=== PATIENT | female | born 1950 | race Caucasian/White ===

== ENCOUNTER 2019-06-13 08:49 | Outpatient (CLI) | payer MEDICARE, OTHER | END 2019-06-13 08:50 | disposition home or self-care (01) | LOC: DI 08:49 | PROVIDERS: ATTEND Internal Medicine | DX: Z12.31 Encounter for screening mammogram for malignant neoplasm of breast (principal) | CPT/HCPCS: 77063; 77067 ==

== ENCOUNTER 2019-06-13 08:56 | Outpatient (CLI) | payer MEDICARE ==
--- NOTE | 2019-06-14 00:41 | XRAY Report ---
Reason: ATRIAL SEPTAL DEFECT, HYPOTHYROIDISM Procedure Date: 06/13/2019 Accession Number: [id number] / [id number] Procedure: XR - Chest 2 View X-Ray CPT Code: 37853 Final Report FULL RESULT: EXAM: CHEST RADIOGRAPHY EXAM DATE: 06/13/2019 10:42 AM. CLINICAL HISTORY: ATRIAL SEPTAL DEFECT, HYPOTHYROIDISM. COMPARISON: None. TECHNIQUE: 2 views. FINDINGS: Lungs/Pleura: No focal opacities evident. No pleural effusion. No pneumothorax. Normal volumes. Mediastinum: Heart and mediastinal contours are unremarkable. Other: None. IMPRESSION: Normal 2-view chest radiography. RADIA
--- NOTE | 2019-06-14 11:20 | Ultrasound Report ---
Reason: ATRIAL SEPTAL DEFECT, HYPOTHYROIDISM Procedure Date: 06/13/2019 Accession Number: [id number] / [id number] Procedure: US - Head or Neck Soft Tissue CPT Code: Final Report FULL RESULT: EXAM: THYROID ULTRASOUND EXAM DATE: 06/13/2019 09:46 AM. CLINICAL HISTORY: Atrial septal defect, hypothyroidism. COMPARISON: None. TECHNIQUE: Real time sonographic imaging of the thyroid was performed by the pig farm manager. Multiple territory account representative static images were saved for review. FINDINGS: THYROID GLAND: Right Lobe: 2.5 x 1.2 x 0.8 cm, volume 1.1 cc. Markedly heterogeneous and lobular. Right Lobe Nodules: None. Left Lobe: 2.2 x 0.6 x 0.8 cm, volume 0.5 cc. Markedly heterogeneous and lobular. Left Lobe Nodules: None. Isthmus: 0.3 cm AP. Isthmic Nodules: 1. Echogenic with peripheral hypoechoic rim, 0.9 x 0.9 x 0.5 cm. LYMPH NODES: No adenopathy demonstrated in the central or lateral compartment. OTHER: None. IMPRESSION: 1. Small heterogeneous and lobular thyroid gland mostly likely the result of thyroid disease and consistent with clinical history of hypothyroidism. 0.9 cm isthmic nodule which does not meet criteria for fine-needle aspiration biopsy. Therefore, continued surveillance is recommended with follow-up in 12-24 months. Management recommendations are based on 2015 [place] [employer] Management Guidelines for Adult Patients with Thyroid Nodules and Differentiated Thyroid Cancer. RADIA
--- NOTE | 2019-06-17 08:55 | DEXA Report ---
Reason: POSTMENOPAUSAL Procedure Date: 06/13/2019 Accession Number: [id number] / [id number] Procedure: DEX - Dexa Spine and/or Hip CPT Code: Final Report FULL RESULT: EXAM: Dexa Spine and/or Hip DATE: 06/13/2019 11:07 AM CLINICAL HISTORY: POSTMENOPAUSAL TECHNIQUE: Dual energy x-ray absorptiometry (DXA) was performed on a [employer] System. Regions measured are the AP Spine, femoral neck, and if needed forearm. COMPARISON: None. In accordance with the International Society for Clinical Densitometry (ISCD) guidelines, data from previous exams may be reanalyzed using current recommendations and techniques. This is done to allow a more accurate basis for comparison with the current study. FINDINGS: The data for the lumbar spine is as follows: BMD (g/cm/cm) T-SCORE Z-SCORE REGION L1 0.899 -1.9 -1.5 L2 0.965 -2.0 -1.5 L3 1.025 -1.5 -1.0 L4 1.106 -0.8 -0.3 TOTAL 1.010 -1.4 -1.0 NOTE: All evaluable vertebrae are used for classification The data for the hip is as follows: BMD (g/cm/cm) T-SCORE Z-SCORE REGION Neck 0.704 -2.4 -1.6 TOTAL 0.761 -2.0 -1.5 NOTE: The femoral neck or total proximal femur, whichever is lowest, is used for classification. IMPRESSION: THE WHO CLASSIFICATION BASED ON THE INTERNATIONAL REFERENCE STANDARD IS OSTEOPENIA. THE FRACTURE RISK IS INCREASED. RECOMMENDATION: Patients with diagnosis of osteoporosis or osteopenia should have regular bone mineral density assessment. For those eligible for Medicare, routine testing is allowed once every 2 years. Testing frequency can be increased for patients who have rapidly progressing disease or for those who are receiving medical therapy to restore bone mass. COMMENT: World Health Organization (WHO) definitions for osteoporosis and osteopenia: NORMAL BMD: T-score at -1.0 or higher, fracture risk is low OSTEOPENIA BMD: T-score between -1.0 and -2.5, fracture risk is increased. OSTEOPOROSIS BMD: T-score at -2.5 or lower, fracture risk is high. National Osteoporosis Foundation recommends: 1. Obtain adequate dietary calcium (at least 1200 mg per day) and vitamin D (400-800 international units per day). 2. Participate, as appropriate, in regular weightbearing and muscle-strengthening exercise. 3. Avoid tobacco use and reduce alcohol and caffeine intake. 4. For more detailed information see the website at www.NOF.org.
== END 2019-06-13 08:57 | disposition home or self-care (01) ==
LOC: DI 08:56
PROVIDERS: ATTEND Internal Medicine
DX: Q21.1 Atrial septal defect (principal); E03.9 Hypothyroidism, unspecified; N95.8 Other specified menopausal and perimenopausal disorders; M85.89 Other specified disorders of bone density and structure, multiple sites; J44.9 Chronic obstructive pulmonary disease, unspecified; G47.31 Primary central sleep apnea; Z87.891 Personal history of nicotine dependence
CPT/HCPCS: 71046; 76536; 77080; 94010; 94729

== ENCOUNTER 2020-06-01 11:37 | Outpatient (CLI) | payer MEDICARE ==
--- NOTE | 2020-06-01 18:19 | Ultrasound Report ---
PROCEDURE: Head or Neck Soft Tissue INDICATIONS: THYROID NODULE TECHNIQUE: Real-time scanning was performed of the thyroid gland, with image documentation. COMPARISON: Thyroid ultrasound 06/13/2019 FINDINGS: Right: Thyroid lobe measures 2.1 x 0.8 x 0.9 cm, and is homogeneous in echotexture. Left: Thyroid lobe measures 2.0 x 0.5 x 0.6 cm, and is homogenous in echotexture. Isthmus: 3 mm thick. Nodule number: One Location: Isthmus Size: 1.0 x 0.8 x 0.5 cm compared to 0.9 x 0.9 x 0.5 cm. Composition: Follow-up Echogenicity: Hyperechoic Shape: wider than tall. Margins: Smooth Echogenic foci: None Total points: 1 ACR TI-RADS category: 1 IMPRESSION: 1. Stable appearance of the isthmus lesion since 06/13/2019. Based on recommendations below given bd gory 1 classification, no additional follow-up is recommended. ACR TI-RADS definitions and recommendations: TI-RADS 1 (benign): 0 points. FNA not needed. TI-RADS 2 (not suspicious): 2 points. FNA not needed. TI-RADS 3 (mildly suspicious): 3 points. ? FNA if 2.5 cm or larger, follow up if 1.5 cm or larger (at 1, 3, and 5 years). TI-RADS 4 (moderately suspicious): 4-6 points. ? FNA if 1.5 cm or larger, follow up if 1 cm or larger (at 1, 2, 3, and 5 years). TI-RADS 5 (highly suspicious): 7 points or more. ? FNA if 1 cm or larger, follow up if 0.5 cm or larger (every year for 5 years). Reviewed by: Dacia Gardiner MD on 06/01/2020 5:18 PM [facility] Approved by: Dacia Gardiner MD on 06/01/2020 5:18 PM [facility] Station ID: [id number]
== END 2020-06-01 11:38 | disposition home or self-care (01) ==
LOC: DI 11:37
PROVIDERS: ATTEND Family Medicine
DX: E04.1 Nontoxic single thyroid nodule (principal)
CPT/HCPCS: 76536

== ENCOUNTER 2021-06-01 08:06 | Day surgery (SDC) | payer MEDICARE ==
[2021-06-01] MEDS ORDERED: LACTATED RINGERS 1,000 ML IV ONE (08:10)
--- NOTE | 2021-06-01 08:39 | ANESTHESIA ---
Pre-Anesthesia VS, & Labs - Diagnosis colon polyps - Procedure Colonoscopy Vital Signs: Temp Pulse Resp BP Pulse Ox 36.9 C 96 10 L 189/95 H 95 06/01/21 08:28 06/01/21 08:28 06/01/21 08:28 06/01/21 08:28 06/01/21 08:28 Height: 5 ft 6 in Weight (kg): 106.3 kg Body Mass Index: 37.8 BMI Classification: Obese - NPO >8 hours - Is Patient ?: No Home Medications and Allergies Home Medications: Ambulatory Orders Metformin HCl [Metformin ER Osmotic] 500 mg PO BID 06/01/21 Atorvastatin Calcium 40 mg PO DAILY 08/21/20 Furosemide [Lasix] 20 mg PO DAILY 08/21/20 Levothyroxine Sodium [Levothyroxine] 150 mcg PO DAILY 08/21/20 Methadone [Methadone Hcl] 5 mg PO BID 08/21/20 Pregabalin [Lyrica] 150 mg PO BID 08/21/20 Warfarin [Coumadin] 5 mg PO DAILY 08/21/20 amLODIPine [Norvasc] 5 mg PO DAILY 08/21/20 lisinopriL [Prinivil] 10 mg PO DAILY 08/21/20 tiZANidine [Zanaflex] 4 mg PO BID 08/21/20 Allergies/Adverse Reactions: Allergies Allergy/AdvReac Type Severity Reaction Status Date / Time No Known Drug Allergies Allergy Verified 06/01/21 08:48 Anes History & Medical History - Anesthetic History Anesthesia Complications: reports: No previous complications - Medical History Cardiovascular: reports: Hypertension Pulmonary: reports: CPAP use Gastrointestinal: reports: None Urinary: reports: None 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, uses cane when walks outside) Endocrine/Autoimmune: reports: Type 2 diabetes (new diagnosis) Smoking Status: Former smoker (quit 2012) History of Cancer?: No - Surgical History Gynecologic: reports: Hysterectomy, Other (laparoscopy for endometriosis) Orthopedic: reports: Other (wrist ORIF) Exam Mouth Opening: Greater than 4 Fingerbreadths Neck Mobility: Reduced Mallampati classification: III Thyromental Distance: 4-6 cm Respiratory: Lungs clear Cardiovascular: Regular rate Plan Anesthesia Type: Total IV Consent for Procedure(s) Verified and Reviewed: Yes Code Status: Attempt Resuscitation ASA classification: 3-Severe systemic disease Is this case an emergency?: No
[2021-06-01] MEDS ORDERED: PROPOFOL 500 MG/50 ML 0 MG/0 ML VIAL ONE (08:51)
[2021-06-01] MEDS ORDERED: LIDOCAINE-MPF 2% 5 ML VIAL ONE (09:15)
[2021-06-01] MEDS ORDERED: LACTATED RINGERS 400 ML IV ONE (09:30)
[2021-06-01] MEDS ORDERED: PROPOFOL 500 MG/50 ML 500 MG/50 ML VIAL ONE (09:36)
--- NOTE | 2021-06-01 10:10 | ANESTHESIA POST OP EVALUATION ---
Anesthesia Post Eval - Post Anesthesia Eval Vitals: Last Vital Signs Temp 36.5 C 06/01/21 09:55 Pulse 71 06/01/21 09:55 Resp 12 06/01/21 09:55 BP 155/80 H 06/01/21 09:55 Pulse Ox 96 06/01/21 09:55 CV Function Including HR & BP: Stable Pain Control: Satisfactory Nausea & Vomiting: Negative Mental Status: Baseline Respiratory Status: Airway Patent Hydration Status: Satisfactory Anesthesia Complications: None
[2021-06-01 10:21] VITALS: BP 160/80
== END 2021-06-01 08:07 | disposition home or self-care (01) ==
LOC: SDS 08:06
PROVIDERS: ATTEND Surgery
DX: Z12.11 Encounter for screening for malignant neoplasm of colon (principal); Z86.010 Personal history of colon polyps; K64.4 Residual hemorrhoidal skin tags; K64.8 Other hemorrhoids; K57.30 Diverticulosis of large intestine without perforation or abscess without bleeding; E11.42 Type 2 diabetes mellitus with diabetic polyneuropathy; I69.951 Hemiplegia and hemiparesis following unspecified cerebrovascular disease affecting right dominant side; I10 Essential (primary) hypertension; K59.00 Constipation, unspecified; K21.9 Gastro-esophageal reflux disease without esophagitis; E78.5 Hyperlipidemia, unspecified; G89.4 Chronic pain syndrome; M54.50 Low back pain, unspecified; E66.9 Obesity, unspecified; Z68.37 Body mass index [BMI] 37.0-37.9, adult; Z79.84 Long term (current) use of oral hypoglycemic drugs; Z79.01 Long term (current) use of anticoagulants; Z79.891 Long term (current) use of opiate analgesic; Z79.899 Other long term (current) drug therapy; Z87.891 Personal history of nicotine dependence
CPT/HCPCS: G0105; J7120

== ENCOUNTER 2021-10-18 12:45 | Outpatient (CLI) | payer MEDICARE ==
--- NOTE | 2021-10-18 14:29 | DEXA Report ---
PROCEDURE: Dexa Spine and/or Hip INDICATIONS: POST MENOPAUSAL TECHNIQUE: Dual energy x-ray absorptiometry (DXA) was performed on a [employer] System. Regions measur ed are the AP Spine, femoral neck, and if needed forearm. COMPARISON: June 13, 2019 FINDINGS: Lumbar Spine: Bone Mineral Density 1.092 g/cm/cm,T score -0.7, normal; 8.1% change. Left Hip: Bone Mineral Density 0.750 g/cm/cm,T score -2.0, osteopenia; -1.4% change Left Femoral Neck: Bone Mineral Density 0.712 g/cm/cm, T score -2.3, osteopenia (T score greater or equal to -1.0: NORMAL) (T score from -1.1 to -2.4: OSTEOPENIA) (T score less than or equal to -2.5 to: OSTEOPOROSIS) Impression: Bone mineral density as detailed above. Patients with diagnosis of osteoporosis or osteopenia should have regular bone mineral density assess ment. For those eligible for Medicare, routine testing is allowed once every 2 years. Testing frequ ency can be increased for patients who have rapidly progressing disease or for those who are receivin g medical therapy to restore bone mass. Reviewed by: Tino Yap MD on 10/18/2021 2:28 PM PDT Approved by: Tino Yap MD on 10/18/2021 2:28 PM PDT Station ID: [id number]
== END 2021-10-18 12:46 | disposition home or self-care (01) ==
LOC: DI 12:45
PROVIDERS: ATTEND Physician Assistant
DX: Z78.0 Asymptomatic menopausal state (principal); Z13.820 Encounter for screening for osteoporosis; N95.8 Other specified menopausal and perimenopausal disorders; M85.89 Other specified disorders of bone density and structure, multiple sites; Z12.2 Encounter for screening for malignant neoplasm of respiratory organs; Z87.891 Personal history of nicotine dependence

== ENCOUNTER 2021-10-18 12:46 | Outpatient (CLI) | payer MEDICARE ==
--- NOTE | 2021-10-18 14:43 | CT Report ---
PROCEDURE: Low Dose Lung Cancer Screen INDICATIONS: FORMER SMOKER TECHNIQUE: Noncontrast low-dose images were acquired from the pulmonary apices to the posterior costophrenic ang les. Multiplanar MIP reformats were then acquired. For radiation dose reduction, the following was used: automated exposure control, adjustment of mA and/or kV according to patient size. COMPARISON: None. FINDINGS: Image quality: Excellent. Lungs and pleura: 2 mm pleural-based pulmonary nodule, right upper lobe, image 127/5. Mediastinum: Heart size is normal. No pericardial effusion. Moderate coronary artery calcification s. No mediastinal adenopathy by size criteria. Thoracic aorta and central pulmonary arteries are nor mal in size. Esophagus is normal in caliber. No hiatal hernia. Bones and chest wall: No suspicious bony lesions. No vertebral body compression fractures. No axil mini or supraclavicular adenopathy by size criteria. Thyroid is not well seen. Abdomen: Visualized upper abdomen solid organs and bowel loops appear normal in the absence of contr ast. IMPRESSION: 1. LungRads category 1: Negative. No nodules and/or definitely benign nodules. 2. Annual low-dose noncontrast CT of the chest is recommended for lung cancer screening. 3. Clinically significant or potentially clinically significant findings (nonlung cancer): Moderate c oronary artery calcifications. CLINICAL RECOMMENDATION STATEMENTS: In patients <35 years with an ITN detected on CT, MRI, or extrathyroidal ultrasound, the Committee re commends further evaluation with dedicated thyroid ultrasound if the nodule is "e1 cm and has no susp icious imaging features, and if the patient has normal life expectancy. In patients "e35 years with an ITN detected on CT, MRI, or extrathyroidal ultrasound, the Committee r ecommends further evaluation with dedicated thyroid ultrasound if the nodule is "e1.5 cm and has no s uspicious imaging features, and if the patient has normal life expectancy. (ACR, 2014) Reviewed by: Beto Reyes MD on 10/18/2021 2:42 PM PDT Approved by: Beto Reyes MD on 10/18/2021 2:42 PM PDT Station ID: [id number]
== END 2021-10-18 12:47 | disposition home or self-care (01) ==
LOC: DI 12:46
PROVIDERS: ATTEND Physician Assistant
DX: Z12.2 Encounter for screening for malignant neoplasm of respiratory organs (principal); Z87.891 Personal history of nicotine dependence

== ENCOUNTER 2021-12-07 13:35 | Outpatient (CLI) | payer MEDICARE ==
--- NOTE | 2021-12-08 08:58 | Mammography Report ---
BILATERAL DIGITAL SCREENING MAMMOGRAM 3D/2D: 12/07/2021 CLINICAL: Routine screening. Comparison is made to exams dated: 06/13/2019 mammogram and 03/08/2018 mammogram - [facility]. The tissue of both breasts is predominantly fatty. No significant masses, calcifications, or other findings are seen in either breast. There is a new focal asymmetry in the right breast at the 11:00 position. There are three new asymmetries in the left breast. IMPRESSION: INCOMPLETE: NEEDS ADDITIONAL IMAGING EVALUATION New bilateral asymmetries, for which diagnostic mammogram and ultrasound are recommended. This exam was interpreted at Station ID: [id number]. NOTE: For mammograms, a report in lay terms will be sent to the patient. Approximately 15% of breast malignancies will not be visualized mammographically. In the management of a palpable breast mass, a negative mammogram must not discourage biopsy of a clinically suspicious lesion. Electronically Signed By: Houston Hopper M.D. jr/:12/07/2021 15:17:34 ACR BI-RADS Category 0: Incomplete 3340F PARENCHYMAL PATTERN: (F) - The breast(s) demonstrate(s) diffuse fatty replacement. BI-RADS CATEGORY: (0) - 0 Mammo and US [id number] Immediate follow-up LATERALITY: (B)
== END 2021-12-07 13:36 | disposition home or self-care (01) ==
LOC: DI.N 13:35
PROVIDERS: ATTEND Physician Assistant
DX: Z12.31 Encounter for screening mammogram for malignant neoplasm of breast (principal); R92.8 Other abnormal and inconclusive findings on diagnostic imaging of breast

== ENCOUNTER 2022-08-24 09:35 | Outpatient (CLI) | payer MEDICARE ==
--- NOTE | 2022-08-25 11:07 | Mammography Report ---
BILATERAL DIGITAL DIAGNOSTIC MAMMOGRAM 3D/2D: 08/24/2022 CLINICAL: Patient returns for a 6 month follow up of bilateral breasts. Comparison is made to exams dated: 01/20/2022 mammogram, 12/07/2021 mammogram, 06/13/2019 mammogram, an d 03/08/2018 mammogram - [facility]. Both breasts are almost entirely fatty (category a/<25% glandular tissue). There is a stable focal asymmetry in the right breast middle depth central to the nipple seen on the craniocaudal view only. There are multiple stable focal asymmetries in the left breast inferior lateral quadrant middle depth . In retrospect, these bilateral findings are not significantly changed from the 2019 mammogram. No other significant masses or calcifications are seen in either breast. IMPRESSION: BENIGN There is no mammographic evidence of malignancy. A 1 year screening mammogram is recommended. Based on the Tyrer Cuzick model (a risk assessment model) the patients lifetime risk is 2.2% and her 10 year risk is 1.4%. According to the ACR, ACS, and NCCN guidelines, an annual breast MRI exam latosha g with mammogram is recommended if the patients lifetime risk is 20% or greater. This exam was interpreted at Station ID: [id number]. NOTE: For mammograms, a report in lay terms will be sent to the patient. Approximately 15% of breast malignancies will not be visualized mammographically. In the management of a palpable breast mass, a negative mammogram must not discourage biopsy of a clinically suspicious lesion. Electronically Signed By: Tanya Estevez M.D. lk/:08/24/2022 10:52:10 ACR BI-RADS Category 2: Benign Finding(s) 3342F PARENCHYMAL PATTERN: (F) - The breast(s) demonstrate(s) diffuse fatty replacement. BI-RADS CATEGORY: (2) - 2 RECOMMENDATION: (ANNUAL) - Recommend routine annual screening mammography. [id number] 1 year screening LATERALITY: (B)
== END 2022-08-24 09:36 | disposition home or self-care (01) ==
LOC: DI 09:35
PROVIDERS: ATTEND Student in an Organized Health Care Education/Training Program
DX: R92.8 Other abnormal and inconclusive findings on diagnostic imaging of breast (principal); N63.10 Unspecified lump in the right breast, unspecified quadrant; N63.20 Unspecified lump in the left breast, unspecified quadrant

== ENCOUNTER 2022-11-13 17:51 | Inpatient (IN) | payer MEDICARE ==
[2022-11-13] MEDS ORDERED: SODIUM CHLORIDE 0.9% 1,000 ML IV STA (18:06)
--- NOTE | 2022-11-13 18:08 | ED Physician Documentation ---
PD HPI ALTERED MENTAL STATUS - Stated complaint Stated Complaint: DEHYDRATED,WEAK,ABD PX - Chief complaint Chief Complaint: Neuro - History obtained from History obtained from: Family - Additional information Additional information: 71-year-old woman with history of strokes, septal defect on lifelong warfarin, type 2 diabetes, peripheral neuropathy, hysterectomy presents for the evaluation of abdominal pain and altered mental status. She presents by private vehicle accompanied by her . He provides all the history because she is fairly encephalopathic. He states that about 4 to 5 days ago started to complain of diarrhea and abdominal pain. Had a fever at the beginning but not in the last couple of days. Today she became progressively confused and has not been talking in the last few hours. PD PAST MEDICAL HISTORY - Past Medical History Cardiovascular: Hypertension Respiratory: CPAP use Neuro: CVA (times three right sided weakness, uses cane when walks outside) Endocrine/Autoimmune: Type 2 diabetes (new diagnosis) GI: None : None Musculoskeletal: Chronic back pain - Past Surgical History General: Other Ortho: Other (wrist ORIF) /ONCOLOGY RN: Hysterectomy, Other (laparoscopy for endometriosis) - Present Medications Home Medications: Ambulatory Orders Medication Instructions Recorded Confirmed Atorvastatin Calcium 40 mg PO DAILY 08/21/20 06/01/21 Furosemide [Lasix] 20 mg PO DAILY 08/21/20 06/01/21 Levothyroxine Sodium 150 mcg PO DAILY 08/21/20 06/01/21 [Levothyroxine] Methadone [Methadone Hcl] 5 mg PO BID 08/21/20 06/01/21 Pregabalin [Lyrica] 150 mg PO BID 08/21/20 06/01/21 Warfarin [Coumadin] 5 mg PO DAILY 08/21/20 06/01/21 amLODIPine [Norvasc] 5 mg PO DAILY 08/21/20 06/01/21 lisinopriL [Prinivil] 10 mg PO DAILY 08/21/20 06/01/21 tiZANidine [Zanaflex] 4 mg PO BID 08/21/20 06/01/21 Metformin HCl [Metformin ER 500 mg PO BID 06/01/21 06/01/21 Osmotic] Ondansetron Odt [Zofran] 4 mg TL Q6H PRN #10 tablet 04/25/22 - Allergies Allergies/Adverse Reactions: Allergies Allergy/AdvReac Type Severity Reaction Status Date / Time No Known Drug Allergies Allergy Verified 04/25/22 14:56 - Social History Smoking Status: Former smoker (quit 2012) PD ED PE NORMAL - Vitals Vital signs reviewed: Yes - General General: Other (I am able to get her to respond, she has slow simple answers to questions and is alert and oriented to person only. She endorses mild abdominal pain as her only complaint.) - HEENT HEENT: PERRL, EOMI - Neck Neck: Supple, no meningeal sign, No bony TTP - Cardiac Cardiac: RRR, No murmur - Respiratory Respiratory: No respiratory distress, Clear bilaterally (Anteriorly) - Abdomen Abdomen: Other (Mild diffuse tenderness with more significant right upper quadrant tenderness) - Derm Derm: Normal color, Warm and dry - Extremities Extremities: No edema, No calf tenderness / cord - Neuro Neuro: No motor deficit, No sensory deficit Eye Opening: Spontaneous Motor: Obeys Commands Verbal: Confused GCS Score: 14 Results - Vitals Vitals: Vital Signs - 24 hr 11/13/22 11/13/22 11/13/22 17:55 17:57 18:27 Temperature 37 C 37.0 C Heart Rate 109 H 109 H 88 Respiratory 16 16 14 Rate Blood Pressure 141/120 H 141/120 H 152/100 H O2 Saturation 89 L 89 L 96 If not protocol 2 : Oxygen Flow, liters/minute 11/13/22 11/13/22 11/13/22 18:30 18:35 19:35 Temperature Heart Rate 82 82 73 Respiratory 14 12 17 Rate Blood Pressure 100/50 L 100/50 L 99/70 O2 Saturation 98 99 96 If not protocol 2 : Oxygen Flow, liters/minute Oxygen O2 Source Room air Oxygen Flow Rate 2 - EKG (time done) 1901 EKG releavant findings:: EKG personally interpreted by author of this note. Relevant findings are: Rate: Rate (enter#) (81) Rhythm: NSR Sumner: Normal Intervals: RBBB Ischemia: Normal ST segments Compare to prior EKG: Old EKG unavailable Computer interpretation: Agree with computer - Labs Labs: Laboratory Tests 11/13/22 11/13/22 11/13/22 18:36 18:39 18:39 WBC 11.9 H RBC 4.09 L Hgb 12.3 Hct 38.8 MCV 94.9 MCH 30.1 MCHC 31.7 L RDW 14.4 Plt Count 290 MPV 11.3 H Neut # (Auto) 10.0 H Lymph # (Auto) 0.7 L Miller # (Auto) 1.0 Eos # (Auto) 0.0 Baso # (Auto) 0.1 Absolute Nucleated RBC 0.00 Nucleated RBC % 0.0 Manual Slide Review Indicated WBC Morphology NORMAL APPEARANCE Platelet Estimate NORMAL (130-450,000) Platelet Morphology NORMAL APPEARANCE RBC Morph Micro Appear NORMAL APPEARANCE PT INR VBG pH VBG pCO2 VBG pO2 VBG HCO3 VBG Total CO2 VBG O2 Saturation VBG Base Excess Sodium 140 Potassium 3.6 Chloride 96 L Carbon Dioxide 26 Anion Gap 18.0 H BUN 41 H Creatinine 2.3 H Estimated GFR (MDRD) 21 L Glucose 209 H Lactic Acid Calcium 8.7 Total Bilirubin 1.7 H AST 206 H ALT 74 H Alkaline Phosphatase 311 H Total Protein 7.1 Albumin 3.0 L Globulin 4.1 Albumin/Globulin Ratio 0.7 L TSH Urine Color Urine Clarity Urine pH Ur Specific [place] Urine Protein Urine Glucose (UA) Urine Ketones Urine Occult Blood Urine Nitrite Urine Bilirubin Urine Urobilinogen Ur Leukocyte Esterase Urine RBC Urine WBC Ur Squamous Epith Cells Amorphous Sediment Urine Bacteria Urine Culture Comments Nasal Adenovirus (PCR) NOT DETECTED Nasal B. parapertussis DNA (PCR) NOT DETECTED Nasal Coronavir 229E PCR NOT DETECTED Nasal Coronavir HKU1 PCR NOT DETECTED Nasal Coronavir NL63 PCR NOT DETECTED Nasal Coronavir OC43 PCR NOT DETECTED Nasal Enterovir/Rhinovir PCR NOT DETECTED Nasal Influenza B PCR NOT DETECTED Nasal Influenza A PCR NOT DETECTED Nasal Parainfluen 1 PCR NOT DETECTED Nasal Parainfluen 2 PCR NOT DETECTED Nasal Parainfluen 3 PCR NOT DETECTED Nasal Parainfluen 4 PCR NOT DETECTED Nasal RSV (PCR) NOT DETECTED Nasal B.pertussis DNA PCR NOT DETECTED Nasal C.pneumoniae (PCR) NOT DETECTED Fei Human Metapneumo PCR NOT DETECTED Nasal M.pneumoniae (PCR) NOT DETECTED Nasal SARS-CoV-2 (PCR) NOT DETECTED Urine Opiates Screen Ur Oxycodone Screen Urine Methadone Screen Ur Propoxyphene Screen Ur Barbiturates Screen Ur Tricyclics Screen Ur Phencyclidine Scrn Ur Amphetamine Screen U Methamphetamines Scrn U Benzodiazepines Scrn Urine Cocaine Screen U Cannabinoids Screen Ethyl Alcohol < 5.0 Blood Type Blood Type Recheck 11/13/22 11/13/22 11/13/22 18:39 18:39 18:39 WBC RBC Hgb Hct MCV MCH MCHC RDW Plt Count MPV Neut # (Auto) Lymph # (Auto) Miller # (Auto) Eos # (Auto) Baso # (Auto) Absolute Nucleated RBC Nucleated RBC % Manual Slide Review WBC Morphology Platelet Estimate Platelet Morphology RBC Morph Micro Appear PT 112.3 H INR > 10.0 H* VBG pH VBG pCO2 VBG pO2 VBG HCO3 VBG Total CO2 VBG O2 Saturation VBG Base Excess Sodium Potassium Chloride Carbon Dioxide Anion Gap BUN Creatinine Estimated GFR (MDRD) Glucose Lactic Acid 1.9 Calcium Total Bilirubin AST ALT Alkaline Phosphatase Total Protein Albumin Globulin Albumin/Globulin Ratio TSH 7.06 H Urine Color Urine Clarity Urine pH Ur Specific [place] Urine Protein Urine Glucose (UA) Urine Ketones Urine Occult Blood Urine Nitrite Urine Bilirubin Urine Urobilinogen Ur Leukocyte Esterase Urine RBC Urine WBC Ur Squamous Epith Cells Amorphous Sediment Urine Bacteria Urine Culture Comments Nasal Adenovirus (PCR) Nasal B. parapertussis DNA (PCR) Nasal Coronavir 229E PCR Nasal Coronavir HKU1 PCR Nasal Coronavir NL63 PCR Nasal Coronavir OC43 PCR Nasal Enterovir/Rhinovir PCR Nasal Influenza B PCR Nasal Influenza A PCR Nasal Parainfluen 1 PCR Nasal Parainfluen 2 PCR Nasal Parainfluen 3 PCR Nasal Parainfluen 4 PCR Nasal RSV (PCR) Nasal B.pertussis DNA PCR Nasal C.pneumoniae (PCR) Fei Human Metapneumo PCR Nasal M.pneumoniae (PCR) Nasal SARS-CoV-2 (PCR) Urine Opiates Screen Ur Oxycodone Screen Urine Methadone Screen Ur Propoxyphene Screen Ur Barbiturates Screen Ur Tricyclics Screen Ur Phencyclidine Scrn Ur Amphetamine Screen U Methamphetamines Scrn U Benzodiazepines Scrn Urine Cocaine Screen U Cannabinoids Screen Ethyl Alcohol Blood Type Blood Type Recheck 11/13/22 11/13/22 11/13/22 18:39 18:39 19:13 WBC RBC Hgb Hct MCV MCH MCHC RDW Plt Count MPV Neut # (Auto) Lymph # (Auto) Miller # (Auto) Eos # (Auto) Baso # (Auto) Absolute Nucleated RBC Nucleated RBC % Manual Slide Review WBC Morphology Platelet Estimate Platelet Morphology RBC Morph Micro Appear PT INR VBG pH 7.343 VBG pCO2 44.1 VBG pO2 45.6 VBG HCO3 23.4 VBG Total CO2 24.8 VBG O2 Saturation 78.9 VBG Base Excess -2.4 L Sodium Potassium Chloride Carbon Dioxide Anion Gap BUN Creatinine Estimated GFR (MDRD) Glucose Lactic Acid Calcium Total Bilirubin AST ALT Alkaline Phosphatase Total Protein Albumin Globulin Albumin/Globulin Ratio TSH Urine Color Urine Clarity Urine pH Ur Specific [place] Urine Protein Urine Glucose (UA) Urine Ketones Urine Occult Blood Urine Nitrite Urine Bilirubin Urine Urobilinogen Ur Leukocyte Esterase Urine RBC Urine WBC Ur Squamous Epith Cells Amorphous Sediment Urine Bacteria Urine Culture Comments Nasal Adenovirus (PCR) Nasal B. parapertussis DNA (PCR) Nasal Coronavir 229E PCR Nasal Coronavir HKU1 PCR Nasal Coronavir NL63 PCR Nasal Coronavir OC43 PCR Nasal Enterovir/Rhinovir PCR Nasal Influenza B PCR Nasal Influenza A PCR Nasal Parainfluen 1 PCR Nasal Parainfluen 2 PCR Nasal Parainfluen 3 PCR Nasal Parainfluen 4 PCR Nasal RSV (PCR) Nasal B.pertussis DNA PCR Nasal C.pneumoniae (PCR) Fei Human Metapneumo PCR Nasal M.pneumoniae (PCR) Nasal SARS-CoV-2 (PCR) Urine Opiates Screen Ur Oxycodone Screen Urine Methadone Screen Ur Propoxyphene Screen Ur Barbiturates Screen Ur Tricyclics Screen Ur Phencyclidine Scrn Ur Amphetamine Screen U Methamphetamines Scrn U Benzodiazepines Scrn Urine Cocaine Screen U Cannabinoids Screen Ethyl Alcohol Blood Type B POSITIVE Blood Type Recheck B POSITIVE 11/13/22 19:16 WBC RBC Hgb Hct MCV MCH MCHC RDW Plt Count MPV Neut # (Auto) Lymph # (Auto) Miller # (Auto) Eos # (Auto) Baso # (Auto) Absolute Nucleated RBC Nucleated RBC % Manual Slide Review WBC Morphology Platelet Estimate Platelet Morphology RBC Morph Micro Appear PT INR VBG pH VBG pCO2 VBG pO2 VBG HCO3 VBG Total CO2 VBG O2 Saturation VBG Base Excess Sodium Potassium Chloride Carbon Dioxide Anion Gap BUN Creatinine Estimated GFR (MDRD) Glucose Lactic Acid Calcium Total Bilirubin AST ALT Alkaline Phosphatase Total Protein Albumin Globulin Albumin/Globulin Ratio TSH Urine Color YELLOW Urine Clarity HAZY Urine pH 5.5 Ur Specific [place] 1.020 Urine Protein 100 H Urine Glucose (UA) NEGATIVE Urine Ketones NEGATIVE Urine Occult Blood LARGE H Urine Nitrite NEGATIVE Urine Bilirubin NEGATIVE Urine Urobilinogen 0.2 (NORMAL) Ur Leukocyte Esterase NEGATIVE Urine RBC 0-5 Urine WBC 0-3 Ur Squamous Epith Cells RARE Squamous Amorphous Sediment Few Urine Bacteria Few Urine Culture Comments NOT INDICATED Nasal Adenovirus (PCR) Nasal B. parapertussis DNA (PCR) Nasal Coronavir 229E PCR Nasal Coronavir HKU1 PCR Nasal Coronavir NL63 PCR Nasal Coronavir OC43 PCR Nasal Enterovir/Rhinovir PCR Nasal Influenza B PCR Nasal Influenza A PCR Nasal Parainfluen 1 PCR Nasal Parainfluen 2 PCR Nasal Parainfluen 3 PCR Nasal Parainfluen 4 PCR Nasal RSV (PCR) Nasal B.pertussis DNA PCR Nasal C.pneumoniae (PCR) Fei Human Metapneumo PCR Nasal M.pneumoniae (PCR) Nasal SARS-CoV-2 (PCR) Urine Opiates Screen NEGATIVE Ur Oxycodone Screen NEGATIVE Urine Methadone Screen POSITIVE H Ur Propoxyphene Screen NEGATIVE Ur Barbiturates Screen NEGATIVE Ur Tricyclics Screen NEGATIVE Ur Phencyclidine Scrn NEGATIVE Ur Amphetamine Screen NEGATIVE U Methamphetamines Scrn NEGATIVE U Benzodiazepines Scrn NEGATIVE Urine Cocaine Screen NEGATIVE U Cannabinoids Screen NEGATIVE Ethyl Alcohol Blood Type Blood Type Recheck - Rads (name of study) Single view chest x-ray is unremarkable Relevant Findings:: Final report received, EMP independent interpretation of test Chest x-ray for line placement showing appropriate position Relevant Findings:: Final report received, EMP independent interpretation of test CT of the head showing atrophy and ischemic changes, nothing acute Relevant Findings:: Final report received, EMP independent interpretation of test CT done without IV contrast demonstrates likely metastatic disease or hepatocarcinoma in the liver Relevant Findings:: Final report received, EMP independent interpretation of test Procedures - Central Line - Major Central Line Preparation: Consent Obtained (from ), Time out completed, Ultrasound used, Sterile prep and drape Central line location: Right IJ Central line type: Triple lumen Central line aftercare: Chlorhexidine disc placed, Secured, Placement confirmed, No pneumothorax, No complications, Bundle checklist complete, Pt tolerated well PD Medical Decision Making - ED course ED course: 71-year-old woman presents with recent history of diarrhea and abdominal pain and now encephalopathy today that is quite severe. She is mildly hypoxic and tachycardic in triage and at times minimally responsive. She was attended to immediately and all the history was from the . Her blood sugar was checked and it was just a little over 200 which would not be causative for her encephalopathy. She is tender in the right upper quadrant. She was difficult for IV access so central line was expeditiously placed. I had placed an ultrasound-guided 22-gauge IV in the right arm but given the acuity of her illness I felt that central venous access was appropriate. With some IV fluids she had a perked up a bit and was more coherent. Initial work-up demonstrated a CBC showing a white count of 11.9. INR too high to calculate. Basically normal venous blood gas. CMP showing RAFAEL with creatinine of 2.3 and elevated liver enzymes. Urinalysis with blood, but no red cells. Urine drug screen positive for methadone which she does take. On my initial view of her CAT scan of the abdomen, I was concerned for gallbladder infection given the findings above. That said there ill-defined numerous hypodensities in the liver and I did a bedside ultrasound and it appears that she has widespread metastatic disease in the liver. She has no history of primary cancer. states she had a negative colonoscopy a few years ago. Family and as well as patient were updated with these results including the presumptive but unfortunate diagnosis of metastatic disease to the liver versus primary hepatocellular carcinoma. This would explain her INR being up. She will need to come into the hospital for management of her acute kidney injury, supratherapeutic INR. Eventually she will need to be considered for liver biopsy but that will be complicated by her ongoing warfarin use's and anticoagulation. I presented the case to the telehealth hospitalist for admission at 8:10 PM. An ultrasound was ordered to confirm multiple liver masses. This was pending on admission. - Critical Care Time(min): 45 Time Includes: Direct patient care, Review records, Reassess patient, Document care, Coordinate care, Medical consult, Family consult for tx dec Data interpretation: Labs, Pulse ox Procedures included in critical care time: Peripheral IV Procedures excluded from critical care time: Central IV, EKG Departure - Departure Disposition: 66 [facility] DC/Xfer Clinical Impression: Altered mental status, Acute kidney injury, Liver masses, Supratherapeutic INR Condition: Serious
[2022-11-13] MEDS ORDERED: iohexoL-300 100 ML VIAL ONE (18:11)
--- NOTE | 2022-11-13 18:30 | XRAY Report ---
PROCEDURE: Chest 1 View X-Ray INDICATIONS: HYPOXEMIA TECHNIQUE: One view of the chest was acquired. COMPARISON: Chest x-ray 04/25/2022 FINDINGS: Surgical changes and devices: None. Lungs and pleura: No pleural effusions or pneumothorax. Lungs are clear. Mediastinum: Mediastinal contours appear normal. Heart size is mildly enlarged.. Bones and chest wall: No suspicious bony lesions. Overlying soft tissues appear unremarkable. IMPRESSION: No acute cardiopulmonary process. Reviewed by: Dacia Gardiner MD on 11/13/2022 6:28 PM PDT Approved by: Dacia Gardiner MD on 11/13/2022 6:28 PM PDT Station ID: [id number]
[2022-11-13 18:48] LABS: BASOPHILS # (AUTO) 0.1 10^3/uL (0.0-0.1); BASOPHILS % (AUTO) 0.6 %; HCT - HEMATOCRIT 38.8 % (37.0-47.0); HGB - HEMOGLOBIN 12.3 g/dL (12.0-16.0); LYMPHOCYTES # (AUTO) 0.7 10^3/uL (1.5-3.5); LYMPHOCYTES % (AUTO) 5.6 %; MEAN CORPUSCULAR HEMOGLOBIN 30.1 pg (27.0-31.0); MEAN CORPUSCULAR HGB CONC 31.7 g/dL (32.0-36.0); MEAN CORPUSCULAR VOLUME 94.9 fL (81.0-99.0); MEAN PLATELET VOLUME 11.3 fL (7.9-10.8); MONOCYTES % (AUTO) 8.7 %; NEUTROPHILS % (AUTO) 84.4 %; PLT - PLATELET COUNT 290 10^3/uL (130-450); RED BLOOD COUNT 4.09 10^6/uL (4.20-5.40); RED CELL DISTRIBUTION WIDTH 14.4 % (12.0-15.0); WHITE BLOOD COUNT 11.9 x10^3/uL (4.8-10.8)
[2022-11-13 18:52] LABS: PT - PROTHROMBIN TIME 112.3 secs (9.9-12.6); SLIDE REVIEW? Indicated
[2022-11-13 18:55] LABS: VBG BASE EXCESS -2.4 mmol/L (-2 - +2); VBG HCO3 23.4 mmol/L (23-28); VBG OXYGEN SATURATION 78.9 % (60-80); VBG PCO2 44.1 mmHg (41-51); VBG PH 7.343 (7.31-7.41); VBG PO2 45.6 mmHg (25-47); VBG TOTAL CO2 24.8 mmol/L (24-29)
[2022-11-13 19:00] LABS: ALBUMIN/GLOBULIN RATIO 0.7 (1.0-2.2); ALKALINE PHOSPHATASE 311 IU/L (42-121); ALT ALANINE AMINOTRANSFERASE 74 IU/L (10-60); AST ASPARTATE AMINOTRANSFERASE 206 IU/L (10-42); BILIRUBIN,TOTAL 1.7 mg/dL (0.2-1.0); BUN - BLOOD UREA NITROGEN 41 mg/dL (6-20); CALCIUM 8.7 mg/dL (8.5-10.3); CARBON DIOXIDE - CO2 26 mmol/L (21-32); CHLORIDE 96 mmol/L (101-111); CREATININE 2.3 mg/dL (0.4-1.0); ETOH - ETHANOL < 5.0 mg/dL; GFR - MDRD 21 (>89); GLUCOSE 209 mg/dL (70-100); INR > 10.0 (0.8-1.2); POTASSIUM 3.6 mmol/L (3.5-5.0); SODIUM 140 mmol/L (135-145); TOTAL PROTEIN 7.1 g/dL (6.7-8.2)
[2022-11-13] MEDS ORDERED: PIPERACILLIN/TAZOBACTAM 3.375 GM in SODIUM CHLORIDE 0.9% MINIBAG 100 ML IV STA (19:13)
[2022-11-13 19:14] LABS: PLATELET ESTIMATE, MANUAL NORMAL (130-450,000) (NORMAL); PLATELET MORPHOLOGY NORMAL APPEARANCE (NORMAL); RBC MORPHOLOGY (MULTIPLE) NORMAL APPEARANCE (NORMAL); WBC MORPHOLOGY (MULTIPLE) NORMAL APPEARANCE (NORMAL)
[2022-11-13 19:21] LABS: MUDS CUTOFF CONCENTRATIONS CUTOFF CONC BELOW:
[2022-11-13 19:23] LABS: BILIRUBIN,URINE NEGATIVE (NEGATIVE); GLUCOSE, URINE (UA) NEGATIVE (NEGATIVE); KETONES,URINE (UA) NEGATIVE (NEGATIVE); LEUKOCYTE ESTERASE, URINE NEGATIVE (NEGATIVE); NITRITE,URINE NEGATIVE (NEGATIVE); OCCULT BLOOD,URINE LARGE (NEGATIVE); PH,URINE 5.5 PH (5.0-7.5); PROTEIN,URINE 100 mg/dL (NEGATIVE); UROBILINOGEN,URINE 0.2 (NORMAL) E.U./dL (NORMAL)
[2022-11-13 19:26] LABS: CLARITY,URINE HAZY (CLEAR)
--- NOTE | 2022-11-13 19:27 | XRAY Report ---
PROCEDURE: Chest for Line Placement INDICATIONS: Right IJ central venous catheter TECHNIQUE: One view of the chest was acquired. COMPARISON: Chest x-ray 11/13/2022 FINDINGS: Surgical changes and devices: Interval right-sided central venous catheter placement distal tip proj ecting over the mid/distal SVC. Lungs and pleura: No pleural effusions or pneumothorax. Lungs are clear. Mediastinum: Mediastinal contours appear normal. Heart size is mildly enlarged. Bones and chest wall: No suspicious bony lesions. Overlying soft tissues appear unremarkable. IMPRESSION: Central venous catheter placement as above. Reviewed by: Dacia Gardiner MD on 11/13/2022 7:26 PM PDT Approved by: Dacia Gardiner MD on 11/13/2022 7:26 PM PDT Station ID: [id number]
[2022-11-13 19:38] LABS: AMORPHOUS SEDIMENT,UR Few /LPF; BACTERIA,URINE Few /HPF (None Seen); RBC,URINE 0-5 /HPF (0-5); SQUAMOUS EPITHELIAL CELL,UR RARE Squamous (<= Few); WBC,URINE 0-3 /HPF (0-5)
[2022-11-13 19:39] LABS: AMPHETAMINE SCREEN,URINE NEGATIVE (NEGATIVE); BARBITURATE SCREEN,UR NEGATIVE (NEGATIVE); BENZODIAZEPINES SCREEN, URINE NEGATIVE (NEGATIVE); COCAINE SCREEN URINE NEGATIVE (NEGATIVE); METHADONE SCREEN, URINE POSITIVE (NEGATIVE); METHAMPHETAMINES SCREEN, URINE NEGATIVE (NEGATIVE); OPIATE SCREEN, URINE NEGATIVE (NEGATIVE); OXYCODONE SCREEN, URINE NEGATIVE (NEGATIVE); PROPOXYPHENE SCREEN, URINE NEGATIVE (NEGATIVE); THC CANNABINOID SCREEN, URINE NEGATIVE (NEGATIVE); TRICYCLIC ANTIDEPRESSANT,URINE NEGATIVE (NEGATIVE)
--- NOTE | 2022-11-13 19:44 | CT Report ---
PROCEDURE: HEAD WO INDICATIONS: ams TECHNIQUE: Noncontrast 4.5 mm thick angled axial sections acquired from the foramen magnum to the vertex. For r adiation dose reduction, the following was used: automated exposure control, adjustment of mA and/or kV according to patient size. COMPARISON: CT head 04/25/2022 FINDINGS: Image quality: Excellent. The ventricular system and cortical sulci demonstrate atrophy, consistent for patient's stated age. There are areas of hypodensity in the periventricular and subcortical white matter. There is no acut e intra or extra-axial fluid collection. No acute hemorrhage, mass lesion or midline shift. Brainst em is unremarkable. Globes are symmetrical. Sinuses are aerated. Osseous structures are intact. IMPRESSION: 1. No acute intracranial process. 2. Moderate atrophy and chronic microvascular ischemic changes. Reviewed by: Dacia Gardiner MD on 11/13/2022 7:43 PM PDT Approved by: Dacia Gardiner MD on 11/13/2022 7:43 PM PDT Station ID: [id number]
[2022-11-13 19:59] LABS: B. PARAPERTUSSIS- RESP PCR PAN NOT DETECTED; B. PERTUSSIS- RESP PCR PANEL NOT DETECTED; C. PNEUMONIAE- RESP PCR PANEL NOT DETECTED; CORONAVIRUS 229E-RESP PCR NOT DETECTED; CORONAVIRUS HKU1-RESP PCR NOT DETECTED; CORONAVIRUS NL63-RESP PCR NOT DETECTED; CORONAVIRUS OC43-RESP PCR NOT DETECTED; HUMAN METAPNEUMOVIRUS NOT DETECTED; INFLUENZA A- RESP PCR PANEL NOT DETECTED; INFLUENZA B - RESP PCR PANEL NOT DETECTED; M. PNEUMONIAE- RESP PCR PANEL NOT DETECTED; PARAINFLUENZA VIRUS 1 NOT DETECTED; PARAINFLUENZA VIRUS 2 NOT DETECTED; PARAINFLUENZA VIRUS 3 NOT DETECTED; PARAINFLUENZA VIRUS 4 NOT DETECTED; RHINOVIRUS/ENTEROVIRUS NOT DETECTED; RSV- RESP PCR PANEL NOT DETECTED; SARS-CoV-2 -RESP PCR PANEL NOT DETECTED
--- NOTE | 2022-11-13 19:59 | CT Report ---
PROCEDURE: ABDOMEN/PELVIS WO INDICATIONS: Abdominal pain, acute kidney injury, right upper q TECHNIQUE: Noncontrast 5 mm thick sections acquired from the diaphragms to the symphysis. 5 mm coronal and sagi ttal reformats were then performed. For radiation dose reduction, the following was used: automated exposure control, adjustment of mA and/or kV according to patient size. COMPARISON: None. FINDINGS: Image quality: Excellent. Lung bases and heart: Unremarkable. Liver: Noncontrast liver is diffusely heterogeneous in appearance. There is an overall hypoattenuatio n infiltrative appearance encompassing significant portion of the right lobe. There is an overall mary earance of nodularity both along the capsule as well as within the parenchyma. The liver is enlarged measuring 23.3 cm. Gallbladder and biliary tree: The gallbladder is unremarkable. No ductal dilation. Spleen: No splenomegaly. Pancreas: No pancreatic ductal dilation. Adrenals: No adrenal nodule. Kidneys and ureters: No hydronephrosis. No renal cystic lesion which requires follow up. No solid mas s. Mild atrophy is present. Bowel and peritoneum: No bowel distension. No pathologic free fluid. Lymph nodes: No central or retroperitoneal adenopathy. Vessels: No infrarenal aortic aneurysm. PELVIS Reproductive organs: Unremarkable. Bladder: No abnormal wall thickening, accounting for underdistension. Pelvic lymph nodes: No pelvic adenopathy by size criteria. Bones: No aggressive osseous abnormality. Other: No significant ventral or inguinal hernia. IMPRESSION: Markedly enlarged liver with infiltrative hypoattenuating appearance with areas of marked nodularity. Overall appearance is highly concerning for metastatic disease or multifocal nodular cirrhosis with potentially superimposed hepatocellular carcinoma. Further evaluation with hepatic protocol with MRI is recommended. Kidneys demonstrate mild age-appropriate atrophy. No obstruction. Renal injury evaluation is limited given lack of IV contrast. Reviewed by: Dacia Gardiner MD on 11/13/2022 7:58 PM PDT Approved by: Dacia Gardiner MD on 11/13/2022 7:58 PM PDT Station ID: [id number]
--- NOTE | 2022-11-13 20:34 | HISTORY & PHYSICAL EXAMINATION ---
Chief Complaint - Chief Complaint Chief Complaint: AMS History of Present Illness - Admitted From Admitted From:: ED - History of Present Illness HPI Comment/Other: This is a 71-year-old female with history of strokes, septal defect on lifelong warfarin, type 2 diabetes who presented to the ED for the evaluation of abdominal pain and altered mental status. She was brought in by a private vehicle accompanied by her . He provided all the history because pt is fairly encephalopathic when she presented to the ED. He states that about 4 to 5 days ago she started to complain of diarrhea and abdominal pain. Had a fever at the beginning but not in the last couple of days. 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 In the ED, pt was found to have RAFAEL, INR above 10, transaminitis, CT abd/pelvis showed possible mets to liver vs hepatocellular malignancy vs cirrhosis, CT head showed no acute process, UA/CXR negative for infection, for AMS, RAFAEL, and elevated INR, hospitalist was asked to admit the pt for further management. 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, Other (laparoscopy for endometriosis) - Family & Social History Family History Comment/Other: unable to obtain due to AMS Social History Notes: unable to obtain due to AMS Meds/Allgy - Home Medications Home Medications: Ambulatory Orders Medication Instructions Recorded Confirmed Atorvastatin Calcium 40 mg PO DAILY 08/21/20 06/01/21 Furosemide [Lasix] 20 mg PO DAILY 08/21/20 06/01/21 Levothyroxine Sodium 150 mcg PO DAILY 08/21/20 06/01/21 [Levothyroxine] Methadone [Methadone Hcl] 5 mg PO BID 08/21/20 06/01/21 Pregabalin [Lyrica] 150 mg PO BID 08/21/20 06/01/21 Warfarin [Coumadin] 5 mg PO DAILY 08/21/20 06/01/21 amLODIPine [Norvasc] 5 mg PO DAILY 08/21/20 06/01/21 lisinopriL [Prinivil] 10 mg PO DAILY 08/21/20 06/01/21 tiZANidine [Zanaflex] 4 mg PO BID 08/21/20 06/01/21 Metformin HCl [Metformin ER 500 mg PO BID 06/01/21 06/01/21 Osmotic] Ondansetron Odt [Zofran] 4 mg TL Q6H PRN #10 tablet 04/25/22 - Allergies Allergies/Adverse Reactions: Allergies Allergy/AdvReac Type Severity Reaction Status Date / Time No Known Drug Allergies Allergy Verified 04/25/22 14:56 Review of Systems - Other Findings Other Findings: Pt was oriented to her name but fairly confused when initially brought to the ED but improved slowly later the night, I spoke to the at bedside as well, limited full ROS due to her current mental status change. Exam - Vital Signs Reviewed Vital Signs: Yes Vital Signs: Vital Signs x48h Temp Pulse Resp BP BP Pulse Ox O2 Flow Rate 11/13/22 20:26 36.9 C 18 113/72 96 11/13/22 19:35 73 17 99/70 96 11/13/22 18:35 82 12 100/50 L 99 11/13/22 18:30 82 14 100/50 L 98 2 11/13/22 18:27 88 14 152/100 H 96 2 11/13/22 17:57 37.0 C 109 H 16 141/120 H 89 L 11/13/22 17:55 37 C 109 H 16 141/120 H 89 L - Physical Exam Comments/Other: (with a help of the ED provider) GENERAL: Patient A and O x 1, NAD. HEENT: Atraumatic, EOMI. PULMONARY: CTAB, equal aeration bilaterally. CARDIAC: RRR, no murmur. GASTROINTESTINAL: NABS, slightly TTP on RUQ area. NEURO: CN 2 to 12 grossly intact, moving all 4 exts, limited full neuro exams due to AMS. Conclusion/Plan - Lab Results Lab results reviewed: Yes Fish Bones: 11/13/22 18:39 11/13/22 18:39 - Other Other Results/Comments: Assessment/Plan: 1. Acute metabolic encephalopathy 2. Acute kidney injury 3. Transaminitis 4. Supratherapeutic INR 5. Hx of CVA 6. DM II 7. Hypothyroidism - CT head showed no acute process, UA/CXR negative for infection, AMS could be metabolic 2/2 RAFAEL from dehydration as her told me she wasn't hydrating well these days with some diarrhea, diarrhea now stopped. After IVF hydration, her mental status improved in the ED, con't IVF hydration, check renal fxn daily. Hold home meds that can potentially worsen confusion such as Zanaflex, Lyrica, opioid. Currently no signs of active bleeding, con't to hold INR, check daily INR. Pt has no hx of cancer, will check tumor markers, when INR is stable, might need liver biopsy, RUQ US ordered. SSI for DM II, con't home dose of Synthroid, scds for dvt ppx.
--- NOTE | 2022-11-13 21:14 | Ultrasound Report ---
PROCEDURE: Abdomen Limited INDICATIONS: Right upper quadrant pain, abnormal appearing liver on CT TECHNIQUE: Real-time focused scanning was performed of the abdomen, with image documentation. COMPARISONS: Previous CT 11/13/2022. FINDINGS: Liver: Liver is enlarged, measuring up to 22.4 cm. There is diffusely increased echogenicity with in numerable hypoechoic mass lesions. 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 Gallbladder: No gallstones, wall thickening, or pericholecystic fluid. Biliary ducts: Intrahepatic bile ducts appear nondilated. There is dilatation of the extrahepatic du ct, with the common bile duct measuring up to 1.0 cm distally. Pancreas: Not well seen. Right kidney: Right kidney measures 10.0 cm. No hydronephrosis. IMPRESSION: 1. Innumerable hepatic mass lesions most likely representing metastatic disease. Reviewed by: Vimal Dumont MD on 11/13/2022 9:13 PM PDT Approved by: Vimal Dumont MD on 11/13/2022 9:13 PM PDT Station ID: [id number]
[2022-11-13] MEDS: SODIUM CHLORIDE 0.9% 1,000 ML IV SCH (21:27)
[2022-11-13] MEDS: SODIUM CHLORIDE FLUSH 0.9% 10 ML SYRINGE IVP SCH (21:27)
[2022-11-13] MEDS: INSULIN LISPRO 300 UNIT/3 ML PEN SUBQ SCH (22:09)
[2022-11-14 05:57] LABS: BASOPHILS % (AUTO) 0.4 %; EOSINOPHILS % (AUTO) 0.2 %; HCT - HEMATOCRIT 34.9 % (37.0-47.0); HGB - HEMOGLOBIN 10.9 g/dL (12.0-16.0); LYMPHOCYTES # (AUTO) 1.4 10^3/uL (1.5-3.5); LYMPHOCYTES % (AUTO) 14.7 %; MEAN CORPUSCULAR HEMOGLOBIN 29.7 pg (27.0-31.0); MEAN CORPUSCULAR HGB CONC 31.2 g/dL (32.0-36.0); MEAN CORPUSCULAR VOLUME 95.1 fL (81.0-99.0); MEAN PLATELET VOLUME 11.2 fL (7.9-10.8); MONOCYTES % (AUTO) 10.2 %; PLT - PLATELET COUNT 234 10^3/uL (130-450); RED BLOOD COUNT 3.67 10^6/uL (4.20-5.40); RED CELL DISTRIBUTION WIDTH 14.5 % (12.0-15.0); WHITE BLOOD COUNT 9.5 x10^3/uL (4.8-10.8)
[2022-11-14 06:00] LABS: PT - PROTHROMBIN TIME 47.5 secs (9.9-12.6)
[2022-11-14 06:03] LABS: INR 4.7 (0.8-1.2)
[2022-11-14] MEDS ORDERED: METHADONE 5 MG TABLET PO SCH ×2 (06:05→08:25)
[2022-11-14 06:07] LABS: ALBUMIN/GLOBULIN RATIO 0.8 (1.0-2.2); BILIRUBIN,TOTAL 1.3 mg/dL (0.2-1.0); CALCIUM 8.3 mg/dL (8.5-10.3); CREATININE 1.6 mg/dL (0.4-1.0); PHOSPHORUS 3.9 mg/dL (2.5-4.6); POTASSIUM 3.3 mmol/L (3.5-5.0); TOTAL PROTEIN 6.9 g/dL (6.7-8.2)
[2022-11-14 06:27] LABS: FREE T4 (FREE THYROXINE) 0.98 ng/dL (0.58-1.64)
[2022-11-14 06:41] LABS: CA 15-3 625.2 U/mL (0.0-31.3)
[2022-11-14] MEDS: LEVOTHYROXINE 75 MCG TABLET PO SCH (07:43)
[2022-11-14] MEDS: SODIUM CHLORIDE 0.9% 1,000 ML IV SCH ×2 (07:43→15:30)
[2022-11-14] MEDS: SODIUM CHLORIDE FLUSH 0.9% 10 ML SYRINGE IVP SCH ×2 (07:44→17:18)
[2022-11-14] MEDS: SODIUM CHLORIDE FLUSH 0.9% 10 ML SYRINGE IVP PRN ×3 (07:44→18:23)
[2022-11-14] MEDS: INSULIN LISPRO 300 UNIT/3 ML PEN SUBQ SCH ×4 (07:58→20:54)
[2022-11-14] MEDS: polyethylene glycoL 3350 17 GM PACKET PO SCH (10:18)
[2022-11-14] MEDS: ONDANSETRON 4 MG/2 ML VIAL IVP PRN (11:06)
[2022-11-14] MEDS ORDERED: POTASSIUM CHLOR 10 MEQ/100 ML 10 MEQ/100 ML BAG IV ONE (11:49)
[2022-11-14] MEDS ORDERED: PREGABALIN 50 MG PO SCH (12:00)
--- NOTE | 2022-11-14 12:00 | PROVIDER PROGRESS NOTE ---
Assessment/Plan - Problem List (1) Altered mental status Assessment/Plan: Improving mental status. The at bedside today repeated the Hx that over the last 4 days she has had worsening appetite, and weakness, did not get OOB for the last 2 days and then was obtunded and did not even talk yesterday. When she was brought into the ER yesterday she was only saying yes and no. She was started on IV fluids and this helped her awaken. She was given empiric IV Zosyn, I assume the provider was thinking that she had AMS from sepsis but her WBC was mildly elevated at 11.9, she had no fever, no lactic acid elevation therefore no antibiotics were continued by the admitting doctor. Today 1 blood culture turned positive for coagulase-negative Staph which is usually a skin contaminant. Today she is conversing with me but falls asleep in mid-sentence and appears fatigued and very weak. Plan: Continue with IV fluids. Will check orthostatic VS before she first stands Continue antiemetics as needed Will also order medications to manage her new abdominal pain. Methadone will be continued on scheduled twice daily. We will add IV morphine prn severe pain (this was discussed with pharmacist DARIUS). Will request PT and OT evaluations however will not consider discharging to SNF for rehab, because of the urgency in needing to manage the new cancer diagnosis. She needs to be seen by her PCP to have referral to an Oncologist. Since her WBC and temperature are normal today, no repeat blood culture was ordered today. No empiric IV antibiotics are being continued. 2) Acute kidney injury Labs were all reviewed. She normally runs a creatinine of 0.8. With her history of 4 days of poor oral intake, she is dehydrated and this caused her RAFAEL. Her BUN/creatinine on admission were 41/2.3. She was started on IV fluids and today her BUN and creatinine are 34/1.6. Plan: Avoid nephrotoxins Will stop the Lisinopril, due to both RAFAEL and orthostasis Continue with IV fluids We will request a nutrition consult for suggestions Follow BMP daily 3) Orthostatic hypotension First set of orthostatic vital signs were done before the patient starts participating w/ PT and they were abnormal: Supine BP 120/62, HR 72. Sitting BP 108/67, HR 80. Standing BP 89/63, HR 89. Plan: We will give a saline bolus. Continue maintenance IV fluids. Follow orthostatic VS daily 4) Liver masses Her CT scan then the ultrasound done yesterday showed "innumerable" masses in the liver. There is one particularly large mass measuring 6.2 cm in the right posterior lobe. The ED provider was the first 1 to tell the patient and that she pro bably has cancer. Plan: We will try to get a tissue sample for pathology. I spoke to Dr. Gardiner in [facility] today regarding ultrasound-guided biopsy. Dr. Broderick said she will either need CT-guided or ultrasound-guided biopsy. We will order a biopsy to be done by interventional radiology tomorrow. She will need to have a normal INR therefore will give vitamin K today and follow INR daily. Dr. Gardiner also said she would like a CT with contrast to really outline the masses. Her CT yesterday was done without contrast because of the elevated creatinine. We will see if tomorrow's creatinine is low enough to administer IV contrast. I spoke to our med spa manager Paola, informed her that the plan is patient needs to see her PCP soon after discharge and needs a referral to Oncology. Labs and imaging were faxed to [facility]. The patient got an appointment made for 1 week from today, on November 21, to see Shawn Griffin and his office will start working on giving her a referral started to Oncology. All of the above was discussed with the patient, and at bedside, and 5 other family members were in the room as well. All their questions were answered to their satisfaction. 5) Transaminitis The family was all in the room and reported that the patient gets yearly thorough blood tests. These were done in April 2022 and the LFTs were normal then ( I reviewed all labs in this EMR). I questioned her about alcohol use and she hardly uses any. The and other family members concur Plan: Follow LFTs daily Avoid hepatotoxins Work-up of the liver mets as described in #3 above 6) Supratherapeutic INR (All labs were reviewed) Patient came in yesterday with an INR greater than 10. She admitted she was taking all her usual medicines including the warfarin, despite not having any significant oral intake for 4 days. This and the abnormal liver findings likely caused the INR elevation. She received FFP. Today her INR is 4.7. Plan: We will give vitamin K orally today Follow INR daily. Her elevated INR was discussed with the Radiologist today. The patient needs to be reevaluated tomorrow before definitely undergoing a biopsy tomorrow 7) DM II The patient takes metformin. The admitted she does not really follow a diabetic diet. Plan: Her diet has been de-escalated to just minced and moist because of her poor appetite. Continue with ACHS fingerstick checks and sliding scale insulin coverage Her A1c level has been ordered and result is still pending 8) Chronic pain I asked the patient and why she is on methadone. There is a history of previously needing to be on oxycodone at very high doses which was then transitioned to methadone. Her chronic pain was in her neck and lower back Plan: Continue with the same methadone dose. 9) Hypothyroidism Her TSH is elevated but free T4 is normal. Plan: Continue with her same home thyroid replacement dose 10) Hx of CVA Patient has had 3 strokes, 2002, 2012 and 2013. 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 She has chronic weakness on one side. She uses walk She is on chronic warfarin since those strokes Plan: Eventually she will need PT and OT evaluations. - Current Meds Current Meds: Current Medications Generic Name Dose Route Start Last Admin Trade Name Freq PRN Reason Stop Dose Admin Sodium Chloride 1,000 mls @ 100 mls/hr 11/13/22 21:00 11/14/22 07:43 Normal Saline 0.9% IV 100 mls/hr .Q10H MARANDA Administration Insulin Human Lispro 1 - 9 unit 11/13/22 21:00 11/14/22 07:58 Insulin Lispro 300 Unit/3 Ml Pen SUBQ Not Given 0800,1200,1700,2100 MARANDA Protocol Levothyroxine Sodium 150 mcg 11/14/22 07:30 11/14/22 07:43 Levothyroxine 75 Mcg Tablet PO 150 mcg QDAC MARANDA Administration Ondansetron HCl 4 mg 11/14/22 10:19 11/14/22 11:06 Ondansetron 4 Mg/2 Ml Vial IVP 4 mg Q4HR PRN Administration Nausea / Vomiting Polyethylene Glycol 17 gm 11/14/22 09:00 11/14/22 10:18 Polyethylene Glycol 3350 17 Gm Packet PO Not Given DAILY MARANDA Sodium Chloride 10 ml 11/13/22 20:11 11/14/22 07:44 Sodium Chloride Flush 0.9% 10 Ml Syringe IVP 10 ml PRN PRN Administration NEEDED PER PROVIDER ORDERS Sodium Chloride 10 ml 11/14/22 01:00 11/14/22 07:44 Sodium Chloride Flush 0.9% 10 Ml Syringe IVP 10 ml 0100,0900,1700 [facility] Administration - Lab Result Fish Bone Diagrams: 11/14/22 05:45 11/14/22 05:45 - Additional Planning My Orders: My Active Orders 11/14/22 Evaluate and Treat OT [OT] Routine 11/14/22 10:13 Min Oil/Dimeth/Coconut Oil Crm [Cavilon] 1 applic TOP PRN PRN 11/14/22 10:19 Ondansetron Inj [Zofran Inj] 4 mg IVP Q4HR PRN 11/14/22 11:10 Aspirin EC [Ecotrin] 325 mg PO DAILY PRN 11/14/22 Lunch DIET [Dysphagia - Minced and Moist] [DIET] 11/14/22 11:44 Home CPAP/BiPAP [RC] .ONCE 11/14/22 11:47 Nystatin [Nystop] 1 applic TOP BID 11/14/22 11:48 Orthostatic [Vital Signs - Orthostatic] [RC] QSHIFT 11/14/22 11:49 Potassium Chlor 10 Meq/100 ml [Potassium Chloride] 10 meq in 100 ml IV ONCE 11/14/22 11:57 Morphine Inj (Carpuject) [Morphine (Carpuject)] 2 mg IVP Q4HR PRN 11/14/22 12:00 Pregabalin [Lyrica] 150 mg PO BID Pregabalin [Pregabalin] 1 cap PO BID 11/14/22 21:00 tiZANidine [Zanaflex] 8 mg PO QPM 11/15/22 05:00 AMMONIA [CHEM] DAILYLAB CBC - COMP BLD CT W/AUTO DIFF [HEME] DAILYLAB 11/15/22 09:00 amLODIPine [Norvasc] 5 mg PO DAILY 11/16/22 05:00 CBC - COMP BLD CT W/AUTO DIFF [HEME] DAILYLAB 11/17/22 05:00 CBC - COMP BLD CT W/AUTO DIFF [HEME] DAILYLAB Subjective - Subjective Patient Reports: Feeling Better, Pain (Has pain across the upper half of the abd, she rates in 610. Had nausea this morning, got medicated for that,), Other (She appears very fatigued, she falls asleep midsentence.) Objective Vital Signs: Vital Signs - 24 hr 11/13/22 11/13/22 11/13/22 17:55 17:57 18:27 Temperature 37 C 37.0 C Heart Rate 109 H 109 H 88 Heart Rate [ Monitoring electrodes] Respiratory 16 16 14 Rate Blood Pressure 141/120 H 141/120 H 152/100 H Blood Pressure [Left Brachial artery] Blood Pressure [Right Brachial artery] O2 Saturation 89 L 89 L 96 If not protocol 2 : Oxygen Flow, liters/minute 11/13/22 11/13/22 11/13/22 18:30 18:35 19:35 Temperature Heart Rate 82 82 73 Heart Rate [ Monitoring electrodes] Respiratory 14 12 17 Rate Blood Pressure 100/50 L 100/50 L 99/70 Blood Pressure [Left Brachial artery] Blood Pressure [Right Brachial artery] O2 Saturation 98 99 96 If not protocol 2 : Oxygen Flow, liters/minute 11/13/22 11/13/22 11/13/22 20:26 21:00 21:07 Temperature 36.9 C 36.4 C L 36.4 C L Heart Rate Heart Rate [ 77 77 Monitoring electrodes] Respiratory 18 18 18 Rate Blood Pressure Blood Pressure [Left Brachial artery] Blood Pressure 113/72 115/71 115/71 [Right Brachial artery] O2 Saturation 96 97 97 If not protocol 1.5 1.5 : Oxygen Flow, liters/minute 11/13/22 11/13/22 11/13/22 21:48 21:59 22:18 Temperature 36.7 C 36.8 C Heart Rate Heart Rate [ 74 76 Monitoring electrodes] Respiratory 16 14 Rate Blood Pressure Blood Pressure [Left Brachial artery] Blood Pressure 122/63 117/65 [Right Brachial artery] O2 Saturation 97 97 If not protocol 1.5 1.5 1.5 : Oxygen Flow, liters/minute 11/13/22 11/14/22 11/14/22 23:30 05:24 07:48 Temperature 36.4 C L 36.9 C Heart Rate Heart Rate [ 76 79 Monitoring electrodes] Respiratory 16 17 Rate Blood Pressure Blood Pressure 139/65 H [Left Brachial artery] Blood Pressure 141/54 H [Right Brachial artery] O2 Saturation 94 95 If not protocol 1.5 1 : Oxygen Flow, liters/minute 11/14/22 11/14/22 11/14/22 09:50 10:50 11:33 Temperature 36.9 C Heart Rate Heart Rate [ 82 Monitoring electrodes] Respiratory 16 17 Rate Blood Pressure Blood Pressure 128/78 [Left Brachial artery] Blood Pressure [Right Brachial artery] O2 Saturation 94 84 L 93 If not protocol 2 : Oxygen Flow, liters/minute Oxygen O2 Source Nasal cannula Oxygen Flow Rate 2 I&O (Last 24 Hrs): Intake and Output Totals x24h 11/12/22 11/13/22 11/14/22 23:59 23:59 23:59 Intake Total 1510 1240 Output Total 600 600 Balance 910 640 General: Alert, Mild distress (From fatigue and from abdominal pain), Other (Mildly obese) HEENT: EOMI, Other (Dry oral mucosa) Neck: Supple, No JVD Neuro: Alert, Non Focal, Other (Overall fatigued and weak) Cardiovascular: Regular rate, No murmurs (Distant heart sounds due to large breasts) Respiratory: No respiratory distress, Breath sounds nml Abdomen: Soft, Other (Obese with a pannus. Tender to moderate palpation in the epigastrium. No guarding or rebound. Cannot rule out organomegaly due to her obese abdomen.) Extremities: No clubbing, No edema - Results Results: Laboratory Results WBC 9.5 x10^3/uL (4.8-10.8) 11/14/22 05:45 RBC 3.67 10^6/uL (4.20-5.40) L 11/14/22 05:45 Hgb 10.9 g/dL (12.0-16.0) L 11/14/22 05:45 Hct 34.9 % (37.0-47.0) L 11/14/22 05:45 MCV 95.1 fL (81.0-99.0) 11/14/22 05:45 MCH 29.7 pg (27.0-31.0) 11/14/22 05:45 MCHC 31.2 g/dL (32.0-36.0) L 11/14/22 05:45 RDW 14.5 % (12.0-15.0) 11/14/22 05:45 Plt Count 234 10^3/uL (130-450) 11/14/22 05:45 MPV 11.2 fL (7.9-10.8) H 11/14/22 05:45 Neut # (Auto) 7.0 10^3/uL (1.5-6.6) H 11/14/22 05:45 Lymph # (Auto) 1.4 10^3/uL (1.5-3.5) L 11/14/22 05:45 Lucas # (Auto) 1.0 10^3/uL (0.0-1.0) 11/14/22 05:45 Eos # (Auto) 0.0 10^3/uL (0.0-0.7) 11/14/22 05:45 Baso # (Auto) 0.0 10^3/uL (0.0-0.1) 11/14/22 05:45 Absolute Nucleated RBC 0.00 x10^3/uL 11/14/22 05:45 Nucleated RBC % 0.0 /100WBC 11/14/22 05:45 Manual Slide Review Indicated 11/13/22 18:39 WBC Morphology NORMAL APPEARANCE (NORMAL) 11/13/22 18:39 Platelet Estimate NORMAL (130-450,000) (NORMAL) 11/13/22 18:39 Platelet Morphology NORMAL APPEARANCE (NORMAL) 11/13/22 18:39 RBC Morph Micro Appear NORMAL APPEARANCE (NORMAL) 11/13/22 18:39 PT 47.5 secs (9.9-12.6) H 11/14/22 05:45 INR 4.7 (0.8-1.2) H* 11/14/22 05:45 VBG pH 7.343 (7.31-7.41) 11/13/22 18:39 VBG pCO2 44.1 mmHg (41-51) 11/13/22 18:39 VBG pO2 45.6 mmHg (25-47) 11/13/22 18:39 VBG HCO3 23.4 mmol/L (23-28) 11/13/22 18:39 VBG Total CO2 24.8 mmol/L (24-29) 11/13/22 18:39 VBG O2 Saturation 78.9 % (60-80) 11/13/22 18:39 VBG Base Excess -2.4 mmol/L (-2 - +2) L 11/13/22 18:39 Sodium 145 mmol/L (135-145) 11/14/22 05:45 Potassium 3.3 mmol/L (3.5-5.0) L 11/14/22 05:45 Chloride 102 mmol/L (101-111) 11/14/22 05:45 Carbon Dioxide 30 mmol/L (21-32) 11/14/22 05:45 Anion Gap 13.0 (6-13) 11/14/22 05:45 BUN 34 mg/dL (6-20) H 11/14/22 05:45 Creatinine 1.6 mg/dL (0.4-1.0) H 11/14/22 05:45 Estimated GFR (MDRD) 32 (>89) L 11/14/22 05:45 Glucose 120 mg/dL (70-100) H 11/14/22 05:45 POC Whole Bld Glucose 124 mg/dL (70 - 100) H 11/14/22 11:15 Lactic Acid 1.9 mmol/L (0.5-2.2) 11/13/22 18:39 Calcium 8.3 mg/dL (8.5-10.3) L 11/14/22 05:45 Phosphorus 3.9 mg/dL (2.5-4.6) 11/14/22 05:45 Magnesium 2.0 mg/dL (1.7-2.8) 11/14/22 05:45 Total Bilirubin 1.3 mg/dL (0.2-1.0) H 11/14/22 05:45 AST 145 IU/L (10-42) H 11/14/22 05:45 ALT 61 IU/L (10-60) H 11/14/22 05:45 Alkaline Phosphatase 259 IU/L (42-121) H 11/14/22 05:45 Ammonia < 10.0 umol/L (7-35) 11/14/22 09:27 Total Protein 6.9 g/dL (6.7-8.2) 11/14/22 05:45 Albumin 3.0 g/dL (3.2-5.5) L 11/14/22 05:45 Globulin 3.9 g/dL (2.1-4.2) 11/14/22 05:45 Albumin/Globulin Ratio 0.8 (1.0-2.2) L 11/14/22 05:45 Carcinoembryonic Ag 1633.5 ng/mL 11/14/22 05:45 CA 15-3 Antigen 625.2 U/mL (0.0-31.3) H 11/14/22 05:45 CA 125 Antigen 14.0 U/mL (0.0-35.0) 11/14/22 05:45 TSH 7.06 uIU/mL (0.34-5.60) H 11/13/22 18:39 Free T4 0.98 ng/dL (0.58-1.64) 11/14/22 05:45 Urine Color YELLOW 11/13/22 19:16 Urine Clarity HAZY (CLEAR) 11/13/22 19:16 Urine pH 5.5 PH (5.0-7.5) 11/13/22 19:16 Ur Specific Emily 1.020 (1.002-1.030) 11/13/22 19:16 Urine Protein 100 mg/dL (NEGATIVE) H 11/13/22 19:16 Urine Glucose (UA) NEGATIVE mg/dL (NEGATIVE) 11/13/22 19:16 Urine Ketones NEGATIVE mg/dL (NEGATIVE) 11/13/22 19:16 Urine Occult Blood LARGE (NEGATIVE) H 11/13/22 19:16 Urine Nitrite NEGATIVE (NEGATIVE) 11/13/22 19:16 Urine Bilirubin NEGATIVE (NEGATIVE) 11/13/22 19:16 Urine Urobilinogen 0.2 (NORMAL) E.U./dL (NORMAL) 11/13/22 19:16 Ur Leukocyte Esterase NEGATIVE (NEGATIVE) 11/13/22 19:16 Urine RBC 0-5 /HPF (0-5) 11/13/22 19:16 Urine WBC 0-3 /HPF (0-5) 11/13/22 19:16 Ur Squamous Epith Cells RARE Squamous (<= Few) 11/13/22 19:16 Amorphous Sediment Few /LPF 11/13/22 19:16 Urine Bacteria Few /HPF (None Seen) 11/13/22 19:16 Urine Culture Comments NOT INDICATED 11/13/22 19:16 Nasal Adenovirus (PCR) NOT DETECTED 11/13/22 18:36 Nasal B. parapertussis DNA (PCR) NOT DETECTED 11/13/22 18:36 Nasal Coronavir 229E PCR NOT DETECTED 11/13/22 18:36 Nasal Coronavir HKU1 PCR NOT DETECTED 11/13/22 18:36 Nasal Coronavir NL63 PCR NOT DETECTED 11/13/22 18:36 Nasal Coronavir OC43 PCR NOT DETECTED 11/13/22 18:36 Nasal Enterovir/Rhinovir PCR NOT DETECTED 11/13/22 18:36 Nasal Influenza B PCR NOT DETECTED 11/13/22 18:36 Nasal Influenza A PCR NOT DETECTED 11/13/22 18:36 Nasal Parainfluen 1 PCR NOT DETECTED 11/13/22 18:36 Nasal Parainfluen 2 PCR NOT DETECTED 11/13/22 18:36 Nasal Parainfluen 3 PCR NOT DETECTED 11/13/22 18:36 Nasal Parainfluen 4 PCR NOT DETECTED 11/13/22 18:36 Nasal RSV (PCR) NOT DETECTED 11/13/22 18:36 Nasal B.pertussis DNA PCR NOT DETECTED 11/13/22 18:36 Nasal C.pneumoniae (PCR) NOT DETECTED 11/13/22 18:36 Fei Human Metapneumo PCR NOT DETECTED 11/13/22 18:36 Nasal M.pneumoniae (PCR) NOT DETECTED 11/13/22 18:36 Nasal SARS-CoV-2 (PCR) NOT DETECTED 11/13/22 18:36 Urine Opiates Screen NEGATIVE (NEGATIVE) 11/13/22 19:16 Ur Oxycodone Screen NEGATIVE (NEGATIVE) 11/13/22 19:16 Urine Methadone Screen POSITIVE (NEGATIVE) H 11/13/22 19:16 Ur Propoxyphene Screen NEGATIVE (NEGATIVE) 11/13/22 19:16 Ur Barbiturates Screen NEGATIVE (NEGATIVE) 11/13/22 19:16 Ur Tricyclics Screen NEGATIVE (NEGATIVE) 11/13/22 19:16 Ur Phencyclidine Scrn NEGATIVE (NEGATIVE) 11/13/22 19:16 Ur Amphetamine Screen NEGATIVE (NEGATIVE) 11/13/22 19:16 U Methamphetamines Scrn NEGATIVE (NEGATIVE) 11/13/22 19:16 U Benzodiazepines Scrn NEGATIVE (NEGATIVE) 11/13/22 19:16 Urine Cocaine Screen NEGATIVE (NEGATIVE) 11/13/22 19:16 U Cannabinoids Screen NEGATIVE (NEGATIVE) 11/13/22 19:16 Ethyl Alcohol < 5.0 mg/dL 11/13/22 18:39 Blood Type B POSITIVE 11/13/22 19:13 Blood Type Recheck B POSITIVE 11/13/22 18:39
--- NOTE | 2022-11-14 12:25 | PHARMACY PROGRESS NOTE ---
- Best Possible Medication History Admit Date and Time: 11/13/222011 Processed by: Pharmacy Medication History completed: Yes Patient Interview: Completed Secondary Source(s): Written medication list, Pharmacy records ([facility] [email or web address]. ) As the person ultimately responsible for medication therapy, providers are able to order a medication from an existing home medication list in [facility] via the "Reconcile Routine" prior to Confirmation of that medication by net application support specialist. Such practice is discouraged except when the physician, in their clinical judgment, deems that a medical need exists for a medication without regard to previous use.
[2022-11-14] MEDS: PREGABALIN 100 MG CAPSULE PO SCH ×2 (12:46→20:47)
[2022-11-14] MEDS: NYSTATIN POWDER 15 GM TOP SCH ×2 (12:46→20:48)
[2022-11-14] MEDS: MORPHINE 2 MG/ML CARPUJECT IVP PRN ×2 (12:46→18:22)
[2022-11-14] MEDS ORDERED: PHYTONADIONE 10 MG/ML AMP PO ONE (13:35)
[2022-11-14] MEDS ORDERED: CHERRY SYRUP 10 ML UDC PO ONE (13:35)
[2022-11-14 13:50] LABS: ESTIMATED AVERAGE GLUCOSE 157 mg/dL (70-100); HEMOGLOBIN A1c% 7.1 % (4.27-6.07)
[2022-11-14] MEDS ORDERED: SODIUM CHLORIDE 0.9% 500 ML IV ONE (14:51)
[2022-11-14] MEDS: METHADONE 5 MG TABLET PO SCH (18:00)
[2022-11-14] MEDS: tiZANidine 4 MG TABLET PO SCH (20:46)
[2022-11-14] MEDS: FAMOTIDINE 20 MG TABLET PO PRN (20:48)
[2022-11-14] MEDS: MIN OIL/DIMETHICON/COCONUT OIL 92 GM TUBE TOP PRN (20:48)
[2022-11-14] MEDS ORDERED: SODIUM CHLORIDE 0.9% 1,000 ML IV ONE (22:41)
[2022-11-15] MEDS: SODIUM CHLORIDE FLUSH 0.9% 10 ML SYRINGE IVP SCH ×3 (00:06→17:08)
[2022-11-15] MEDS: SODIUM CHLORIDE 0.9% 1,000 ML IV SCH ×4 (00:11→16:03)
[2022-11-15] MEDS ORDERED: SODIUM CHLORIDE 0.9% 500 ML IV ONE (03:57)
[2022-11-15 05:21] LABS: BASOPHILS % (AUTO) 0.3 %; EOSINOPHILS % (AUTO) 0.4 %; HCT - HEMATOCRIT 28.7 % (37.0-47.0); HGB - HEMOGLOBIN 8.7 g/dL (12.0-16.0); LYMPHOCYTES # (AUTO) 1.1 10^3/uL (1.5-3.5); LYMPHOCYTES % (AUTO) 15.8 %; MEAN CORPUSCULAR HEMOGLOBIN 29.7 pg (27.0-31.0); MEAN CORPUSCULAR HGB CONC 30.3 g/dL (32.0-36.0); MONOCYTES # (AUTO) 0.8 10^3/uL (0.0-1.0); MONOCYTES % (AUTO) 11.7 %; NEUTROPHILS % (AUTO) 70.9 %; PLT - PLATELET COUNT 168 10^3/uL (130-450); RED BLOOD COUNT 2.93 10^6/uL (4.20-5.40)
[2022-11-15 05:32] LABS: INR 4.3 (0.8-1.2); PT - PROTHROMBIN TIME 43.6 secs (9.9-12.6)
[2022-11-15] MEDS: MIDODRINE 2.5 MG TABLET PO SCH ×3 (05:35→21:37)
[2022-11-15 05:38] LABS: ALBUMIN 2.2 g/dL (3.2-5.5); ALBUMIN/GLOBULIN RATIO 0.7 (1.0-2.2); BILIRUBIN,TOTAL 1.1 mg/dL (0.2-1.0); CALCIUM 7.1 mg/dL (8.5-10.3); CREATININE 0.9 mg/dL (0.4-1.0); POTASSIUM 3.6 mmol/L (3.5-5.0); TOTAL PROTEIN 5.3 g/dL (6.7-8.2)
[2022-11-15] MEDS: METHADONE 5 MG TABLET PO SCH (07:07)
[2022-11-15] MEDS: LEVOTHYROXINE 75 MCG TABLET PO SCH (07:07)
[2022-11-15 07:10] LABS: AFP SERUM TUMOR MARKER 1.8 ng/mL (0.0-9.2)
[2022-11-15] MEDS: INSULIN LISPRO 300 UNIT/3 ML PEN SUBQ SCH ×4 (07:54→22:17)
[2022-11-15] MEDS ORDERED: CHERRY SYRUP 10 ML UDC PO ONE (08:14)
[2022-11-15] MEDS ORDERED: PHYTONADIONE 10 MG/ML AMP PO ONE (08:14)
[2022-11-15] MEDS ORDERED: iohexoL-300 100 ML VIAL ONE (08:33)
[2022-11-15] MEDS ORDERED: IBUPROFEN 400 MG TABLET PO PRN (08:49)
[2022-11-15] MEDS ORDERED: lisinopriL 20 MG TABLET PO SCH (09:00)
[2022-11-15] MEDS ORDERED: amLODIPine 5 MG TABLET PO SCH ×2 (09:00)
[2022-11-15] MEDS: CHOLECALCIFEROL 25 MCG TABLET PO SCH (09:46)
[2022-11-15] MEDS: MULTIVITAMIN W/MINERALS TABLET PO SCH (09:46)
[2022-11-15] MEDS: polyethylene glycoL 3350 17 GM PACKET PO SCH (09:46)
[2022-11-15] MEDS: CALCIUM CITRATE 250 MG TABLET PO SCH (09:47)
[2022-11-15] MEDS: MORPHINE 2 MG/ML CARPUJECT IVP PRN (09:53)
[2022-11-15] MEDS: NYSTATIN POWDER 15 GM TOP SCH ×2 (09:53→20:26)
[2022-11-15] MEDS: PREGABALIN 100 MG CAPSULE PO SCH ×2 (09:53→20:27)
--- NOTE | 2022-11-15 10:49 | CT Report ---
PROCEDURE: CHEST W INDICATIONS: cancer and biopsy CONTRAST: 100ml Omnipaque 300 TECHNIQUE: After the administration of intravenous contrast, 1 mm axial images were acquired from the pulmonary apices through the posterior costophrenic angles. Axial 5 mm soft tissue kernel reconstructions were performed as well as 8 mm axial MIP and coronal and sagittal 5 mm reformations. For radiation dose reduction, the following was used: automated exposure control, adjustment of mA and/or kV according to patient size. COMPARISON: Good FINDINGS: Image quality: Mild motion artifact. Lungs and pleura:Small right pleural effusion. Possible trace left pleural effusion also present. Bib asilar atelectasis. No dense airspace disease. Scattered scarring. There are pulmonary micronodules, which can be followed on subsequent imaging, for example on the right image , 41. Mediastinum, heart, and esophagus: No hiatal hernia. Borderline large heart. There are coronary calci fications. A right central line terminates at the cavoatrial junction. There are prominent cardiophre rl lymph nodes. No pathologic mediastinal adenopathy by size criteria. Chest wall and thyroid: Unremarkable. Upper abdomen: Separately dictated Bones: No focal suspicious lesion identified. IMPRESSION: No definite primary malignancy identified in the chest. Small bilateral pleural effusions. Pulmonary micronodules can be followed on subsequent imaging. Reviewed by: Demetrius Fontanez MD on 11/15/2022 10:47 AM PDT Approved by: Demetrius Fontanez MD on 11/15/2022 10:47 AM PDT Station ID: [id number]
[2022-11-15] MEDS: NOREPINEPHRINE/D5W 8 MG/250 ML BAG IV SCH (10:56)
[2022-11-15] MEDS ORDERED: MORPHINE PCA 50 MG IV PRN (11:00)
--- NOTE | 2022-11-15 11:04 | CT Report ---
PROCEDURE: ABDOMEN W/WO INDICATIONS: cancer and biopsy CONTRAST: 100ml Omnipaque 300 TECHNIQUE: 4 phase scanning was performed. After the administration of intravenous contrast, 5 mm thick section s acquired from the diaphragm to the symphysis. 5 mm coronal and sagittal reformats were acquired. For radiation dose reduction, the following was used: automated exposure control, adjustment of mA a nd/or kV according to patient size. COMPARISON: 11/13/2022 FINDINGS: Image quality: Good Lower chest: Separately dictated Solid organs: Multiphasic evaluation of the liver: Nodular contour of the liver, and prominent fissures, likely due to up to a combination of chronic li simone disease and intrinsic liver lesions. The lesions are not hypervascular. Index lesion is seen in the posterior right lobe measuring 5.1 x 6 .4 cm on image /. There is displacement and some compression of the intrahepatic vasculature, without obvious tumor thr ombus. Prominent biliary tree. There is pericholecystic fluid and wall thickening. No pathologic pancreatic ductal dilation. Indeterminate lesion is seen in the spleen, obscured by artifact, probably nonenhanc ing. No adrenal nodules. No hydronephrosis. Nonspecific perinephric stranding is present, particularly codie und the left kidney. Vessels and lymph nodes: No abdominal aortic aneurysm. There are borderline enlarged upper abdominal lymph nodes, for example porfirio hepatis node measures 1.2 cm on image 01/05. Another enlarged lymph node is seen in the left para-aortic region () measuring 1.1 cm in short a xis. Bowel and peritoneum: No bowel obstruction. At the left paracolic gutter, there is a lesion measuring 2.6 x 1.2 cm (. No overt ascites. Body wall: Unremarkable Bones: Degenerative changes. No acute or suspicious osseous finding. IMPRESSION: Multifocal liver masses, index lesion in the posterior right lobe as above, suspicious for metastases . If the patient is considered clinically cirrhotic or has a hepatitis history, these would be consid ered LR M. These are amenable to percutaneous biopsy. Suspected malignant upper abdominal and retroperitoneal lymph nodes. A nodular region in the left paracolic gutter could represent early peritoneal spread (). Reviewed by: Demetrius Fontanez MD on 11/15/2022 11:03 AM PDT Approved by: Demetrius Fontanez MD on 11/15/2022 11:03 AM PDT Station ID: [id number]
[2022-11-15] MEDS ORDERED: NALOXONE 0.4 MG/ML VIAL IVP PRN (11:23)
--- NOTE | 2022-11-15 11:34 | CT Report ---
PROCEDURE: ABDOMEN/PELVIS W INDICATIONS: cancer and biopsy work up CONTRAST: 100ml Omnipaque 300 TECHNIQUE: After the administration of IV contrast, 5 mm thick sections acquired from the diaphragms to the symp hysis. 5 mm thick coronal and sagittal reformats were acquired. For radiation dose reduction, the f ollowing was used: automated exposure control, adjustment of mA and/or kV according to patient size. COMPARISON: 11/13/2022 FINDINGS: Image quality: Good Lower chest: Separately dictated Solid organs: Liver is better assessed on simultaneous multiphase imaging. There is pericholecystic fluid and wall thickening, nonspecific. The biliary tree and pancreatic duct are prominent, without definite pathologic dilation or obstruction. There is a small possible spleni c cyst, difficult to evaluate due to artifact in the region. No adrenal nodules. No hydronephrosis. N onspecific perinephric stranding is present. Vessels and lymph nodes: Pathologic-appearing lymph nodes as described on concurrent multiphasic CT r eport. No aneurysmal vessel identified. Bowel and peritoneum: No evidence of small bowel obstruction. Left paracolic gutter lesion is present , as described on concurrent multiphase CT report. There is a small amount pelvic free fluid. Body wall: Unremarkable Pelvis: Small amount pelvic free fluid. A Quintanilla is in place and underdistended bladder, not well eval uated. Hysterectomy. Bones: No acute or suspicious osseous finding. There are degenerative changes. IMPRESSION: Concurrent CT multiphase reported separately dictated. Please see that report for relevant oncologic findings. Nonspecific perinephric fat stranding, correlate with urinalysis. Nonspecific mildly prominent biliar y tree and pancreatic duct, with edematous changes around the gallbladder. Please correlate with any obstructive LFT pattern, symptoms of cholangitis, and consider ultrasound Small indeterminate pelvic free fluid. Reviewed by: Demetrius Fontanez MD on 11/15/2022 11:33 AM PDT Approved by: Demetrius Fontanez MD on 11/15/2022 11:33 AM PDT Station ID: [id number]
[2022-11-15] MEDS: MORPHINE PCA 50 MG IV PRN (12:01)
[2022-11-15] MEDS: FAMOTIDINE 20 MG TABLET PO PRN (13:49)
--- NOTE | 2022-11-15 14:15 | PROVIDER PROGRESS NOTE ---
Subjective - Prog Note Date Prog Note Date: 11/15/22 Prog Note Time: 14:13 - Subjective Subjective: She is tearful. Feels that and spite of the pain medication we are giving her, she is still in terrible right upper quadrant pain. It is sharp, stabbing, takes her breath away. She does not want to move. She has been on methadone since admission, and she says is not touching her at all. It really does not do anything for the pain. The medicine that works best for the pain is the morphine but the morphine only lasts anywhere from half an hour to 45 minutes. And then the pain comes back. Telemedicine had to be called 3 times last night. 1:15 in the morning her troponin came back at 67.4. She had sinus bradycardia, and she denied any new chest pain. So repeat troponin ordered. About 45 minutes later, she started dropping her pressure. Blood pressure 77/49. She complained of tingling where the IV was. Stat EKG, lactic acid, BNP and another troponin was done. EKG had normal sinus rhythm with a right bundle branch block. Lactic acid was 0.8. BNP was 81. And her troponin was 67.4. The same as the previous troponin. By 4 in the morning her blood pressure continued to be low. She was 81/48. She was on 1 L nasal cannula at 96% O2 sat. Heart rate was 50. Midodrine 5 mg 3 times daily was ordered and her first doses at 6 AM. And she got a 500 mill bolus of normal saline. A repeat troponin at 6 in the morning was 56.9. Pharmacy was unable to give methadone or morphine due to her low blood pressure. By then the patient was complaining of right upper quadrant pain, unable to take a full breath. When I assessed her at approximately 7:30 in the morning, hypotension continue to the 70s. She was in terrible terrible right upper quadrant pain. No fever. She denies chest pain, cough, chest congestion. Other than right upper quadrant pain she had no other abdominal pain. Current Medications - Current Medications Current Medications: Active Medications Aspirin (Aspirin Ec 325 Mg Tablet) 325 mg PO DAILY PRN PRN Reason: PAIN 1-4 Calcium Citrate (Calcium Citrate 250 Mg Tablet) 500 mg PO DAILY [facility] Last Admin: 11/15/22 09:47 Dose: Not Given Cholecalciferol (Cholecalciferol 25 Mcg Tablet) 25 mcg PO DAILY [facility] Last Admin: 11/15/22 09:46 Dose: Not Given Famotidine (Famotidine 20 Mg Tablet) 20 mg PO BID [facility] Sodium Chloride (Normal Saline 0.9%) 1,000 mls @ 125 mls/hr IV .Q8H [facility] Last Admin: 11/15/22 12:28 Dose: Not Given Norepinephrine Bitartrate (Levophed 8 Mg/250 Ml D5w) 8 mg in 250 mls @ 15 mls/h r IV .Q37H90S [facility]; Protocol Last Admin: 11/15/22 10:56 Dose: 2 mcg/min, 3.75 mls/hr Ibuprofen (Ibuprofen 400 Mg Tablet) 400 mg PO Q4HR PRN PRN Reason: Pain 1 to 4 Insulin Human Lispro (Insulin Lispro 300 Unit/3 Ml Pen) 1 - 9 unit SUBQ 0800,1200,1700,2100 [facility]; Protocol Last Admin: 11/15/22 12:27 Dose: Not Given Levothyroxine Sodium (Levothyroxine 75 Mcg Tablet) 150 mcg PO QDAC [facility] Last Admin: 11/15/22 07:07 Dose: 150 mcg Midodrine (Midodrine 2.5 Mg Tablet) 5 mg PO TID [facility] Last Admin: 11/15/22 13:18 Dose: 5 mg Mineral Oil (Min Oil/Dimethicon/Coconut Oil 92 Gm Tube) 1 applic TOP PRN PRN PRN Reason: Skin Care Last Admin: 11/14/22 20:48 Dose: 1 applic Morphine Sulfate/Sodium Chloride (Morphine Heritage Consultant 50 Mg) 50 mg IV FLAT GRINDER OPERATOR PRN; Protocol PRN Reason: Severe Pain (Level 7-10) Last Admin: 11/15/22 12:01 Dose: 50 mg Multivitamins/Minerals (Multivitamin W/Minerals Tablet) 1 tab PO DAILYWM [facility] Last Admin: 11/15/22 09:46 Dose: Not Given Naloxone HCl (Naloxone 0.4 Mg/Ml Vial) 0.4 mg IVP PRN PRN PRN Reason: respiration <10 Nystatin (Nystatin Powder 15 Gm) 1 applic TOP BID [facility] Last Admin: 11/15/22 09:53 Dose: 1 applic Ondansetron HCl (Ondansetron 4 Mg/2 Ml Vial) 4 mg IVP Q4HR PRN PRN Reason: Nausea / Vomiting Last Admin: 11/14/22 11:06 Dose: 4 mg Polyethylene Glycol (Polyethylene Glycol 3350 17 Gm Packet) 17 gm PO DAILY [facility] Last Admin: 11/15/22 09:46 Dose: Not Given Pregabalin (Pregabalin 100 Mg Capsule) 200 mg PO BID [facility] Last Admin: 11/15/22 09:53 Dose: 200 mg Sodium Chloride (Sodium Chloride Flush 0.9% 10 Ml Syringe) 10 ml IVP PRN PRN PRN Reason: NEEDED PER PROVIDER ORDERS Last Admin: 11/14/22 18:23 Dose: 10 ml Sodium Chloride (Sodium Chloride Flush 0.9% 10 Ml Syringe) 10 ml IVP 0100,0900,1700 [facility] Last Admin: 11/15/22 09:54 Dose: 10 ml Tizanidine HCl (Tizanidine 4 Mg Tablet) 8 mg PO QPM [facility] Last Admin: 11/14/22 20:46 Dose: 8 mg Atorvastatin Calcium 40 mg PO DAILY 08/21/20 Furosemide [Lasix] 20 mg PO DAILY 08/21/20 Levothyroxine Sodium [Levothyroxine] 150 mcg PO DAILY 08/21/20 Methadone [Methadone Hcl] 5 mg PO BID 08/21/20 Pregabalin [Lyrica] 150 mg PO BID 08/21/20 Warfarin [Coumadin] 5 mg PO DAILY 08/21/20 amLODIPine [Norvasc] 5 mg PO DAILY 08/21/20 tiZANidine [Zanaflex] 8 mg PO QPM 08/21/20 Metformin HCl [Metformin ER Osmotic] 500 mg PO BID 06/01/21 Aspirin [Aspirin EC] 1 tab PO DAILY PRN 11/14/22 Calcium Citrate/Vitamin D3 [Calcium Cit 315-Vit D3 250 Cpt] 2 tab PO DAILY 11/14/22 Cholecalciferol [Vitamin D3] 1 tab PO DAILY 11/14/22 Famotidine [Pepcid] 1 tab PO HS PRN 11/14/22 Lisinopril [Zestril] 1 tab PO DAILY 11/14/22 Multivitamin with Minerals [Multivitamins with Minerals] 1 tab PO DAILY 11/14/22 Pregabalin 1 cap PO BID 11/14/22 Objective - Vital Signs/Intake & Output Reviewed Vital Signs: Yes Vital Signs: Vital Signs x48h Temp Pulse Resp BP BP Pulse Ox O2 Flow Rate 11/15/22 14:00 51 L 16 103/58 L 99 4 11/15/22 13:00 58 L 17 100/66 99 4 11/15/22 12:00 98.2 C H 58 L 16 101/56 L 96 4 11/15/22 11:00 48 L 14 86/53 L 100 4 11/15/22 10:00 53 L 24 90/60 100 4 11/15/22 09:38 36.7 C 56 L 18 106/56 L 99 4 11/15/22 08:30 71/44 L 77/33 L 11/15/22 07:42 37.1 C 52 L 17 94/82 H 95 1 11/15/22 07:10 51 L 92/52 L Intake & Output: Intake & Output 11/12/22 11/13/22 11/14/22 11/15/22 23:59 23:59 23:59 23:59 Intake Total 1510 5218.33 3305 Output Total 600 1875 810 Balance 910 3343.33 2495 - Objective General Appearance: positive: Alert, Other (Moderately deaf, tearful, daughter at the bedside, laying at about 30 degrees, tears running silently down her cheeks, quiet affect) Eyes Bilateral: positive: PERRL, EOMI ENT: positive: No signs of dehydration Neck: positive: No JVD, Other (Central line right neck). negative: Stiff neck Respiratory: positive: No respiratory distress, Other (Diminished at the bases. Slow, unlabored, shallow respiration). negative: Wheezes, Rales, Rhonchi Cardiovascular: positive: Regular rate & rhythm Abdomen: positive: Tenderness (Right upper quadrant. Because of obesity difficult to assess for organomegaly but there is a fullness to the right upper quadrant.), Other (Quiet bowel sounds. Abdominal wall is not distended). negative: Guarding, Rebound Skin: positive: Warm, Dry Extremities: positive: Full ROM, No pedal edema Neurologic/Psychiatric: positive: Oriented x3, CN's nml (2-12), Motor nml, Depressed mood/affect - Lab Results Fish Bones: 11/15/22 05:10 11/15/22 05:10 Other Labs: Lab Results x24hrs 11/15/22 11/15/22 11/15/22 Range/Units 07:53 05:10 05:10 WBC 7.0 (4.8-10.8) x10^3/uL RBC 2.93 L (4.20-5.40) 10^6/uL Hgb 8.7 L (12.0-16.0) g/dL Hct 28.7 L (37.0-47.0) % MCV 98.0 (81.0-99.0) fL MCH 29.7 (27.0-31.0) pg MCHC 30.3 L (32.0-36.0) g/dL RDW 15.0 (12.0-15.0) % Plt Count 168 (130-450) 10^3/uL MPV 11.0 H (7.9-10.8) fL Neut # (Auto) 5.0 (1.5-6.6) 10^3/uL Lymph # (Auto) 1.1 L (1.5-3.5) 10^3/uL Dare # (Auto) 0.8 (0.0-1.0) 10^3/uL Eos # (Auto) 0.0 (0.0-0.7) 10^3/uL Baso # (Auto) 0.0 (0.0-0.1) 10^3/uL Absolute Nucleated RBC 0.00 x10^3/uL Nucleated RBC % 0.0 /100WBC PT (9.9-12.6) secs INR (0.8-1.2) Sodium (135-145) mmol/L Potassium (3.5-5.0) mmol/L Chloride (101-111) mmol/L Carbon Dioxide (21-32) mmol/L Anion Gap (6-13) BUN (6-20) mg/dL Creatinine (0.4-1.0) mg/dL Estimated GFR (MDRD) (>89) Glucose (70-100) mg/dL POC Whole Bld Glucose 108 H (70 - 100) mg/dL Estimat Average Glucose (70-100) mg/dL Hemoglobin A1c % (4.27-6.07) % Lactic Acid (0.5-2.2) mmol/L Calcium (8.5-10.3) mg/dL Total Bilirubin (0.2-1.0) mg/dL AST (10-42) IU/L ALT (10-60) IU/L Alkaline Phosphatase (42-121) IU/L Ammonia (7-35) umol/L Troponin I High Sens 56.9 H* (2.3-14.8) ng/L B-Natriuretic Peptide (5-100) pg/mL Total Protein (6.7-8.2) g/dL Albumin (3.2-5.5) g/dL Globulin (2.1-4.2) g/dL Albumin/Globulin Ratio (1.0-2.2) Tumor Marker AFP (0.0-9.2) ng/mL 11/15/22 11/15/22 11/15/22 Range/Units 05:10 05:10 05:10 WBC (4.8-10.8) x10^3/uL RBC (4.20-5.40) 10^6/uL Hgb (12.0-16.0) g/dL Hct (37.0-47.0) % MCV (81.0-99.0) fL MCH (27.0-31.0) pg MCHC (32.0-36.0) g/dL RDW (12.0-15.0) % Plt Count (130-450) 10^3/uL MPV (7.9-10.8) fL Neut # (Auto) (1.5-6.6) 10^3/uL Lymph # (Auto) (1.5-3.5) 10^3/uL Dare # (Auto) (0.0-1.0) 10^3/uL Eos # (Auto) (0.0-0.7) 10^3/uL Baso # (Auto) (0.0-0.1) 10^3/uL Absolute Nucleated RBC x10^3/uL Nucleated RBC % /100WBC PT 43.6 H (9.9-12.6) secs INR 4.3 H (0.8-1.2) Sodium 142 (135-145) mmol/L Potassium 3.6 (3.5-5.0) mmol/L Chloride 109 (101-111) mmol/L Carbon Dioxide 29 (21-32) mmol/L Anion Gap 4.0 L (6-13) BUN 18 (6-20) mg/dL Creatinine 0.9 (0.4-1.0) mg/dL Estimated GFR (MDRD) 62 L (>89) Glucose 129 H (70-100) mg/dL POC Whole Bld Glucose (70 - 100) mg/dL Estimat Average Glucose (70-100) mg/dL Hemoglobin A1c % (4.27-6.07) % Lactic Acid (0.5-2.2) mmol/L Calcium 7.1 L (8.5-10.3) mg/dL Total Bilirubin 1.1 H (0.2-1.0) mg/dL AST 66 H (10-42) IU/L ALT 45 (10-60) IU/L Alkaline Phosphatase 220 H (42-121) IU/L Ammonia 15.3 (7-35) umol/L Troponin I High Sens (2.3-14.8) ng/L B-Natriuretic Peptide (5-100) pg/mL Total Protein 5.3 L (6.7-8.2) g/dL Albumin 2.2 L (3.2-5.5) g/dL Globulin 3.1 (2.1-4.2) g/dL Albumin/Globulin Ratio 0.7 L (1.0-2.2) Tumor Marker AFP (0.0-9.2) ng/mL 11/15/22 11/15/22 11/15/22 Range/Units 03:03 02:42 02:42 WBC (4.8-10.8) x10^3/uL RBC (4.20-5.40) 10^6/uL Hgb (12.0-16.0) g/dL Hct (37.0-47.0) % MCV (81.0-99.0) fL MCH (27.0-31.0) pg MCHC (32.0-36.0) g/dL RDW (12.0-15.0) % Plt Count (130-450) 10^3/uL MPV (7.9-10.8) fL Neut # (Auto) (1.5-6.6) 10^3/uL Lymph # (Auto) (1.5-3.5) 10^3/uL Dare # (Auto) (0.0-1.0) 10^3/uL Eos # (Auto) (0.0-0.7) 10^3/uL Baso # (Auto) (0.0-0.1) 10^3/uL Absolute Nucleated RBC x10^3/uL Nucleated RBC % /100WBC PT (9.9-12.6) secs INR (0.8-1.2) Sodium (135-145) mmol/L Potassium (3.5-5.0) mmol/L Chloride (101-111) mmol/L Carbon Dioxide (21-32) mmol/L Anion Gap (6-13) BUN (6-20) mg/dL Creatinine (0.4-1.0) mg/dL Estimated GFR (MDRD) (>89) Glucose (70-100) mg/dL POC Whole Bld Glucose 132 H (70 - 100) mg/dL Estimat Average Glucose (70-100) mg/dL Hemoglobin A1c % (4.27-6.07) % Lactic Acid (0.5-2.2) mmol/L Calcium (8.5-10.3) mg/dL Total Bilirubin (0.2-1.0) mg/dL AST (10-42) IU/L ALT (10-60) IU/L Alkaline Phosphatase (42-121) IU/L Ammonia (7-35) umol/L Troponin I High Sens 67.4 H* (2.3-14.8) ng/L B-Natriuretic Peptide 81 (5-100) pg/mL Total Protein (6.7-8.2) g/dL Albumin (3.2-5.5) g/dL Globulin (2.1-4.2) g/dL Albumin/Globulin Ratio (1.0-2.2) Tumor Marker AFP (0.0-9.2) ng/mL 11/15/22 11/14/22 11/14/22 Range/Units 02:42 22:46 20:38 WBC (4.8-10.8) x10^3/uL RBC (4.20-5.40) 10^6/uL Hgb (12.0-16.0) g/dL Hct (37.0-47.0) % MCV (81.0-99.0) fL MCH (27.0-31.0) pg MCHC (32.0-36.0) g/dL RDW (12.0-15.0) % Plt Count (130-450) 10^3/uL MPV (7.9-10.8) fL Neut # (Auto) (1.5-6.6) 10^3/uL Lymph # (Auto) (1.5-3.5) 10^3/uL Dare # (Auto) (0.0-1.0) 10^3/uL Eos # (Auto) (0.0-0.7) 10^3/uL Baso # (Auto) (0.0-0.1) 10^3/uL Absolute Nucleated RBC x10^3/uL Nucleated RBC % /100WBC PT (9.9-12.6) secs INR (0.8-1.2) Sodium (135-145) mmol/L Potassium (3.5-5.0) mmol/L Chloride (101-111) mmol/L Carbon Dioxide (21-32) mmol/L Anion Gap (6-13) BUN (6-20) mg/dL Creatinine (0.4-1.0) mg/dL Estimated GFR (MDRD) (>89) Glucose (70-100) mg/dL POC Whole Bld Glucose 131 H (70 - 100) mg/dL Estimat Average Glucose (70-100) mg/dL Hemoglobin A1c % (4.27-6.07) % Lactic Acid 0.8 (0.5-2.2) mmol/L Calcium (8.5-10.3) mg/dL Total Bilirubin (0.2-1.0) mg/dL AST (10-42) IU/L ALT (10-60) IU/L Alkaline Phosphatase (42-121) IU/L Ammonia (7-35) umol/L Troponin I High Sens 67.4 H* (2.3-14.8) ng/L B-Natriuretic Peptide (5-100) pg/mL Total Protein (6.7-8.2) g/dL Albumin (3.2-5.5) g/dL Globulin (2.1-4.2) g/dL Albumin/Globulin Ratio (1.0-2.2) Tumor Marker AFP (0.0-9.2) ng/mL 11/14/22 11/14/2223 Range/Units 17:00 05:45 05:45 WBC (4.8-10.8) x10^3/uL RBC (4.20-5.40) 10^6/uL Hgb (12.0-16.0) g/dL Hct (37.0-47.0) % MCV (81.0-99.0) fL MCH (27.0-31.0) pg MCHC (32.0-36.0) g/dL RDW (12.0-15.0) % Plt Count (130-450) 10^3/uL MPV (7.9-10.8) fL Neut # (Auto) (1.5-6.6) 10^3/uL Lymph # (Auto) (1.5-3.5) 10^3/uL Dare # (Auto) (0.0-1.0) 10^3/uL Eos # (Auto) (0.0-0.7) 10^3/uL Baso # (Auto) (0.0-0.1) 10^3/uL Absolute Nucleated RBC x10^3/uL Nucleated RBC % /100WBC PT (9.9-12.6) secs INR (0.8-1.2) Sodium (135-145) mmol/L Potassium (3.5-5.0) mmol/L Chloride (101-111) mmol/L Carbon Dioxide (21-32) mmol/L Anion Gap (6-13) BUN (6-20) mg/dL Creatinine (0.4-1.0) mg/dL Estimated GFR (MDRD) (>89) Glucose (70-100) mg/dL POC Whole Bld Glucose 154 H (70 - 100) mg/dL Estimat Average Glucose 157 H (70-100) mg/dL Hemoglobin A1c % 7.1 H (4.27-6.07) % Lactic Acid (0.5-2.2) mmol/L Calcium (8.5-10.3) mg/dL Total Bilirubin (0.2-1.0) mg/dL AST (10-42) IU/L ALT (10-60) IU/L Alkaline Phosphatase (42-121) IU/L Ammonia (7-35) umol/L Troponin I High Sens (2.3-14.8) ng/L B-Natriuretic Peptide (5-100) pg/mL Total Protein (6.7-8.2) g/dL Albumin (3.2-5.5) g/dL Globulin (2.1-4.2) g/dL Albumin/Globulin Ratio (1.0-2.2) Tumor Marker AFP 1.8 (0.0-9.2) ng/mL ABX Reporting Has patient been on IV antibiotics over the past 48 hours?: No Assessment/Plan - Problem List (1) Hypotension Impression: In this unfortunate female, hypotension could be from the disease process. CT scan shows extensive, multiple, masses in the liver. A left paracolic gutter nodule, and lymphadenopathy. She does not appear to have signs and symptoms of sepsis with the source other than hypotension. There is no pulmonary, GI, or findings other than pericholecystic inflammation on CT done on admission. She is tender in the right upper quadrant. She is not having an IN. She does not have a GI bleed but could be bleeding in her liver due to mets and an elevated INR (but no tachycardia on vitals). She is not intravascularly depleted with dehydration A total of 38 minutes was spent in critical care of the patient (transfer orders, evaluation of hypotension, discussing care with RN, discussing care with patient and updating twice, discussion with daughter, and establishing code status) Plan: Transfer to ICU I ordered Levophed to maintain mean arterial pressure at 65 Until I can rule out infection, start broad-spectrum antibiotics with cefepime Vanco and Flagyl. Blood cultures before the antibiotics. Recheck CT of the abdomen since her right upper quadrant pain has progressed to severe, intractable pain overnight. She is asking to change her diet from dysphagia or pure. Sometimes she just wants something in her mouth even though she does not have an appetite. So I am changing her to a regular diet and I told nursing that this patient can have what ever she wants to from a food perspective. (2) RUQ abdominal pain Impression: This unfortunate female has already had imaging studies that tell us that she has multiple, multiple masses to her liver. The presumptive thought is that she has metastatic disease of unknown primary. There is nodularity along the capsule as well as the parenchyma. Gallbladder is unremarkable. No hydroneph rosis. This was seen on the admission abdomen/pelvis CT November 13. That was done without contrast. Abdominal ultrasound also shows innumerable hypoechoic mass lesions. A business representative large complex mass in the posterior right hepatic lobe measures 6.2 cm. The intrahepatic ducts appear nondilated. There is dilation of the extrahepatic duct with the common bile duct 1 cm (think primary hepatobiliary w mets or a passed stone). Her total bili was 1.7 on admission. It is 1.1 today. AST was 206 on admission and is 66 today. ALT was 74 on admission and is now 45 today. Alk phos was 311 and is 220 today. Ammonia level is 15.3. The radiologist and I discussed the previous CT. And our plans moving forward. Our obvious suspicion is that she has cancer, either hepatobiliary of mets. Or unknown primary with mets. I am hoping for a pathologic piece of tissue to give us the diagnosis. Her INR is quite elevated. It was greater than 10 on admission and she received FFP and vitamin K to bring it down to 4.7 on November 14. Today her INR is 4.3. I am worried that she may be bleeding in her liver causing such new intractable pain. After I reviewed her liver function studies, I also must think that she may be having gallbladder symptoms even though she did not have stones on the admission CT. If her elevated liver function studies were from tumor, they should not be going down. And they are going down. Radiologist is worried that they do not have a contrasted CAT scan to let him know if they will be getting into trouble with an angioma. Plan: Multiphase CT of the abdomen to look at her liver for angioma Cancel biopsy today since INR is 4.3 and radiology would prefer to be less than 2. Reschedule biopsy for tomorrow Vitamin K 10 mg p.o. today Repeat INR at 6 PM and see if she needs FFP to be ready for tomorrow Check CEA, alpha-fetoprotein, CA 199, CA 15-3, CA 27-29 Stop methadone, 2 mg morphine IV push every 4 hours as needed, and then start morphine FLAT GRINDER OPERATOR. 1 mg/h, maximum 8 mg for 4 hours. Lockout interval 10 minutes. She can give herself 1 mg as needed (3) Altered mental status Impression: From what I can assess in the chart, this has been slowly improving. This morning she is tearful, but appropriate. Able to tell me what she is feeling, oriented to the fact that she is in the hospital. Her deafness does prove to be a slight barrier in communication, but she states that she can hear me and understands everything I am saying. Daughter is at the bedside this morning. She endorses that mom is much better from a mental status perspective. Her was at bedside 11/14 and repeated the Hx that, over the last 4 days, she has had worsening appetite, and weakness, did not get OOB for the last 2 days and then was obtunded and did not even talk yesterday. When she was brought into the ER 11/13, she was only saying yes and no. She was started on IV fluids and this helped her awaken. She has lost about 10 kg of weight when we reviewed her outpatient chart. But she states that this was deliberate on her part. She was cutting back on food and being restrictive about "bad choices", and was actively trying to lose weight. She was given empiric IV Zosyn on admission, and the previous hospitalist assumed the admit provider was thinking that she had AMS from sepsis but her WBC was mildly elevated at 11.9, she had no fever, no lactic acid elevation therefore no antibiotics were continued by the admitting doctor. 11/14, 1 blood culture turned positive for coagulase-negative Staph which is usually a skin c ontaminant. On 11/14 she was conversing with hospitalist but would fall asleep in mid-sentence and appeared fatigued and very weak. Today she is still very fatigued, weak, but able to tell me she is in the hospital. And she processes the information of her liver masses with grief, tears. She has also dropped her pressures, and I have transferred to the ICU. One of the differential diagnosis does include infection. Plan: Continue with IV fluids. Will check orthostatic VS before she first stands Continue antiemetics as needed Change pain management as in problem #2 Will request PT and OT evaluations however will not consider discharging to SNF for rehab, because of the urgency in needing to manage the new cancer diagnosis. She needs to be seen by her PCP to have referral to an Oncologist. Since her WBC and temperature are normal today, no repeat blood culture was ordered today. No empiric IV antibiotics are being continued. (3) Acute kidney injury resolved. Labs were all reviewed. She normally runs a creatinine of 0.8. With her history of 4 days of poor oral intake, she is dehydrated and this caused her RAFAEL. Her BUN/creatinine on admission were 41/2.3. Not only was her lisinopril stopped, she was started on IV fluids and >> 34/1.6>>18/0.9 today. Plan: Avoid nephrotoxins Continue with IV fluids Follow BMP daily (4) Orthostatic hypotension First set of orthostatic vital signs were done before the patient starts participating w/ PT and they were abnormal: Supine BP 120/62, HR 72. Sitting BP 108/67, HR 80. Standing BP 89/63, HR 89. This only confirmed the intravascular depletion from dehydration. Today, with her severe hypotension in the 70s systolic, she has been transferred to the ICU and started on Levophed. Plan: Hold off on working with PT for now. Continue to monitor her blood pressure and when her blood pressure is no longer orthostatic or hypotensive she can start with therapy. (5) Liver masses Her CT scan then the ultrasound done showed "innumerable" masses in the liver. There is one particularly large mass measuring 6.2 cm in the right posterior lobe. The ED provider was the first 1 to tell the patient and that she probably has cancer. We had planned to get tissue sample for pathology. Conversation was held with radiology on November 14 and we needed to normalize her INR. On November 14 she received vitamin K and FFP. In spite of that, her INR is still over 4 today. Today's radiologist wanted better imaging with contrast and a repeat CT was done. Not only does she have the same liver masses, she appears to have nodules in the paracolic gutter indicating carcinomatosis. Lymphadenopathy. She is still not ready for biopsy because of INR. I am also noting that she has changes of inflammation on her gallbladder. Could you have passed a stone? Could she have primary hepatobiliary cancer that has metastasized. In speaking to radiology today, the repeat CAT scan has been helpful so he does not have to worry about a hemangioma. I also spoke to oncology in the medical ambulatory clinic. I presented the case to the oncologist. Her hypotension and possible sepsis is definitely concerning. But they feel that if we can get her through this temporary phase of illness, and have a tissue diagnosis, there are therapies that could allow her a decent quality of life in an extended life of a few years. They feel it is worth getting a liver biopsy and moving forward with at least getting a tissue diagnosis. I also spoke to the patient about CODE STATUS. She really did understand the possibility that she could have a terminal illness and she was understandably tearful and grief stricken. This is all happening so fast. I discussed what the resuscitative effort would mean with regards to CPR and intubation. She states that she does not want that. While she is willing to go to do treatment, get a biopsy, and see how she does, she feels that a full on resuscitative measures with CPR and intubation would not be what she wants. "What would be the point" is her statement. Plan: Tumor markers as already discussed above Vitamin K 10 mg p.o. today Repeat INR at 6 PM If INR is not down to acceptable levels of less than 2, 2 units of FFP now and possibly 2 units of FFP tomorrow morning Change CODE STATUS to DO NOT RESUSCITATE (6) Transaminitis The family was all in the room and reported that the patient gets yearly thorough blood tests. These were done in April 2022 and the LFTs were normal then ( I reviewed all labs in this EMR). I questioned her about alcohol use and she hardly uses any. The and other family members concur. In following her liver function studies daily, they are improving. If she truly had LFTs that were elevated because of tumor, the LFTs would not be getting better. Since they are getting better it makes me wonder if she has a transitory process such as cholecystitis or a passed stone giving her the right upper quadrant pain that so severe today. Plan: Follow LFTs daily Avoid hepatotoxins Work-up of the liver mets as described in #3 above Started on antibiotics (7) Supratherapeutic INR (All labs were reviewed) Patient came in yesterday with an INR greater than 10. She admitted she was taking all her usual medicines including the warfarin, despite not having any significant oral intake for 4 days. This and the abnormal liver findings likely caused the INR elevation. She received FFP. Yesterday, her INR was 4.7. She then received FFP and vitamin K. Today's INR is 4.3. Plan: We will give vitamin K 10 mg orally today Repeat INR at 6 PM. If still elevated see problem #5 with this plan. Our goal is to get her to a liver biopsy (8) DM II The patient takes metformin. The admitted she does not really follow a diabetic diet. Our treatment consist of ACHS fingerstick checks and sliding scale insulin coverage for this. A1c is 7.1%. Yesterday her glucose was 96, 124, 154, 131. Today her glucose is 108, 139. She is eating 25 to 50% of her food. Plan: Change diet to regular diet at her request. Continue with ACHS fingerstick checks and sliding scale insulin coverage (9) Chronic pain I asked the patient and why she is on methadone. There is a history of previously needing to be on oxycodone at very high doses which was then transitioned to methadone. Her chronic pain was in her neck and lower back. Today her right upper quadrant pain is so severe that she is requiring doses of morphine IV that are not holding her. It is not her diffuse pain that is bothering her. Plan: [employer] pump as noted above Stop methadone (10) Hypothyroidism Her TSH is elevated but free T4 is normal. Plan: Continue with her same home thyroid replacement dose (11) Hx of CVA Patient has had 3 strokes, 2002, 2012 and 2013. 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 She has chronic weakness on one side. She uses walk She is on chronic warfarin since those strokes Plan: Eventually she will need PT and OT evaluations. (12) ALINA Plan: I have reiterated to her family that her home machine needs to be brought in here. Especially in view of the fact of the morphine use.
[2022-11-15] MEDS: CEFEPIME 2 GM in SODIUM CHLORIDE 0.9% MINIBAG 100 ML IV SCH ×2 (17:04→21:36)
[2022-11-15] MEDS: metroNIDAZOLE 500 MG/100 ML 500 MG/100 ML BAG IV SCH ×2 (17:38→21:36)
[2022-11-15] MEDS ORDERED: VANCOMYCIN INJ 2.5 GM in SODIUM CHLORIDE 0.9% 500 ML IV ONE (18:00)
[2022-11-15] MEDS ORDERED: iohexoL-300 100 ML VIAL IVP ONE (18:19)
[2022-11-15 18:31] LABS: INR 2.6 (0.8-1.2); PT - PROTHROMBIN TIME 27.6 secs (9.9-12.6)
[2022-11-15] MEDS: FAMOTIDINE 20 MG TABLET PO SCH (20:27)
[2022-11-15] MEDS: tiZANidine 4 MG TABLET PO SCH (20:27)
[2022-11-16] MEDS: SODIUM CHLORIDE 0.9% 1,000 ML IV SCH ×3 (00:40→20:38)
[2022-11-16] MEDS ORDERED: SODIUM CHLORIDE 0.9% 500 ML IV PRN (01:17)
[2022-11-16] MEDS: SODIUM CHLORIDE FLUSH 0.9% 10 ML SYRINGE IVP SCH ×3 (04:45→18:50)
[2022-11-16] MEDS: SODIUM CHLORIDE FLUSH 0.9% 10 ML SYRINGE IVP PRN (04:45)
[2022-11-16 05:03] LABS: BASOPHILS # (AUTO) 0.1 10^3/uL (0.0-0.1); BASOPHILS % (AUTO) 0.6 %; EOSINOPHILS # (AUTO) 0.2 10^3/uL (0.0-0.7); EOSINOPHILS % (AUTO) 1.9 %; HGB - HEMOGLOBIN 10.1 g/dL (12.0-16.0); LYMPHOCYTES % (AUTO) 12.8 %; MEAN CORPUSCULAR HEMOGLOBIN 30.1 pg (27.0-31.0); MEAN CORPUSCULAR HGB CONC 30.6 g/dL (32.0-36.0); MEAN CORPUSCULAR VOLUME 98.2 fL (81.0-99.0); MEAN PLATELET VOLUME 11.2 fL (7.9-10.8); MONOCYTES # (AUTO) 0.8 10^3/uL (0.0-1.0); MONOCYTES % (AUTO) 10.5 %; NEUTROPHILS # (AUTO) 5.8 10^3/uL (1.5-6.6); NEUTROPHILS % (AUTO) 73.4 %; PLT - PLATELET COUNT 227 10^3/uL (130-450); RED BLOOD COUNT 3.36 10^6/uL (4.20-5.40); WHITE BLOOD COUNT 7.9 x10^3/uL (4.8-10.8)
[2022-11-16 05:06] LABS: INR 1.9 (0.8-1.2); PT - PROTHROMBIN TIME 20.6 secs (9.9-12.6)
[2022-11-16 05:08] LABS: CALCIUM, IONIZED 1.05 mmol/L (1.15-1.33); VBG PH 7.29 (7.31-7.41)
[2022-11-16 05:16] LABS: ALBUMIN 2.2 g/dL (3.2-5.5); ALBUMIN/GLOBULIN RATIO 0.7 (1.0-2.2); BILIRUBIN,TOTAL 1.1 mg/dL (0.2-1.0); CALCIUM 7.3 mg/dL (8.5-10.3); CREATININE 0.7 mg/dL (0.4-1.0); MAGNESIUM 1.7 mg/dL (1.7-2.8); PHOSPHORUS 2.5 mg/dL (2.5-4.6); POTASSIUM 3.2 mmol/L (3.5-5.0); TOTAL PROTEIN 5.5 g/dL (6.7-8.2)
[2022-11-16] MEDS: MIN OIL/DIMETHICON/COCONUT OIL 92 GM TUBE TOP PRN ×2 (05:31→21:34)
[2022-11-16] MEDS: metroNIDAZOLE 500 MG/100 ML 500 MG/100 ML BAG IV SCH ×3 (05:37→21:35)
[2022-11-16] MEDS: MIDODRINE 2.5 MG TABLET PO SCH ×3 (05:37→21:34)
[2022-11-16] MEDS: CEFEPIME 2 GM in SODIUM CHLORIDE 0.9% MINIBAG 100 ML IV SCH ×3 (05:37→21:34)
[2022-11-16] MEDS ORDERED: CALCIUM GLUC 1,000MG/50ML-NACL 1,000 MG/50 ML BAG IV ONE ×2 (06:41→16:55)
[2022-11-16] MEDS: LEVOTHYROXINE 75 MCG TABLET PO SCH (07:01)
[2022-11-16] MEDS ORDERED: MAGNESIUM OXIDE 400 MG TABLET PO ONE ×2 (08:10→16:55)
[2022-11-16] MEDS: INSULIN LISPRO 300 UNIT/3 ML PEN SUBQ SCH ×4 (08:45→20:48)
[2022-11-16] MEDS: MULTIVITAMIN W/MINERALS TABLET PO SCH (08:45)
[2022-11-16] MEDS: NEUTRA-PHOS 250 MG TABLET PO SCH ×2 (08:46→11:18)
[2022-11-16] MEDS: CALCIUM CITRATE 250 MG TABLET PO SCH (08:47)
[2022-11-16] MEDS: PREGABALIN 100 MG CAPSULE PO SCH ×2 (08:48→20:38)
[2022-11-16] MEDS: FAMOTIDINE 20 MG TABLET PO SCH ×2 (08:48→20:39)
[2022-11-16] MEDS: polyethylene glycoL 3350 17 GM PACKET PO SCH (08:48)
[2022-11-16] MEDS: CHOLECALCIFEROL 25 MCG TABLET PO SCH (08:48)
[2022-11-16] MEDS: NYSTATIN POWDER 15 GM TOP SCH ×2 (08:49→20:42)
[2022-11-16] MEDS: NOREPINEPHRINE/D5W 8 MG/250 ML BAG IV SCH (10:52)
--- NOTE | 2022-11-16 10:56 | PROVIDER PROGRESS NOTE ---
Subjective - Prog Note Date Prog Note Date: 11/16/22 Prog Note Time: 11:21 - Subjective Subjective: For the last couple of days we have been talking about the liver biopsy. This morning radiology cancels the liver biopsy because her INR was 1.9. This caused an understandable amount of consternation amongst her and her family. We are working on getting her rescheduled and getting that INR down. Other than that, there is no new complaints. No chest pain, no palpitations, no shortness of breath. She is valiently trying to eat to make sure she keeps her caloric intake and but is failing. She says that the right upper quadrant pain is better than it was yesterday on the RADIATION ONCOLOGY MANAGER morphine pump. Current Medications - Current Medications Current Medications: Active Medications Aspirin (Aspirin Ec 325 Mg Tablet) 325 mg PO DAILY PRN PRN Reason: PAIN 1-4 Calcium Citrate (Calcium Citrate 250 Mg Tablet) 500 mg PO DAILY [facility] Last Admin: 11/16/22 08:47 Dose: 500 mg Cholecalciferol (Cholecalciferol 25 Mcg Tablet) 25 mcg PO DAILY [facility] Last Admin: 11/16/22 08:48 Dose: 25 mcg Famotidine (Famotidine 20 Mg Tablet) 20 mg PO BID [facility] Last Admin: 11/16/22 08:48 Dose: 20 mg Sodium Chloride (Normal Saline 0.9%) 1,000 mls @ 125 mls/hr IV .Q8H [facility] Last Infusion: 11/16/22 07:00 Dose: 125 mls/hr Norepinephrine Bitartrate (Levophed 8 Mg/250 Ml D5w) 8 mg in 250 mls @ 15 mls/hr IV .[id number] [facility]; Protocol Last Admin: 11/16/22 10:52 Dose: 2 mcg/min, 3.75 mls/hr Cefepime HCl 2 gm/ Sodium (Chloride) 100 mls @ 200 mls/hr IV TID [facility] Last Infusion: 11/16/22 07:00 Dose: Infused Metronidazole (Flagyl 500 Mg/100 Ml) 500 mg in 100 mls @ 100 mls/hr IV TID [facility] Last Infusion: 11/16/22 08:50 Dose: Infused Vancomycin HCl 1.5 gm/ Sodium (Chloride) 500 mls @ 167 mls/hr IV Q24H [facility] Sodium Chloride (Normal Saline 0.9%) 500 mls @ 20 mls/hr IV Q24H PRN PRN Reason: TKO RATE Ibuprofen (Ibuprofen 400 Mg Tablet) 400 mg PO Q4HR PRN PRN Reason: Pain 1 to 4 Last Admin: 11/15/22 20:26 Dose: 400 mg Insulin Human Lispro (Insulin Lispro 300 Unit/3 Ml Pen) 1 - 9 unit SUBQ 0800,1200,1700,2100 [facility]; Protocol Last Admin: 11/16/22 08:45 Dose: Not Given Levothyroxine Sodium (Levothyroxine 75 Mcg Tablet) 150 mcg PO QDAC [facility] Last Admin: 11/16/22 07:01 Dose: 150 mcg Midodrine (Midodrine 2.5 Mg Tablet) 5 mg PO TID [facility] Last Admin: 11/16/22 05:37 Dose: 5 mg Mineral Oil (Min Oil/Dimethicon/Coconut Oil 92 Gm Tube) 1 applic TOP PRN PRN PRN Reason: Skin Care Last Admin: 11/16/22 05:31 Dose: 1 applic Morphine Sulfate/Sodium Chloride (Morphine Pain Management Physician 50 Mg) 50 mg IV [employer]IATION ONCOLOGY MANAGER PRN; Protocol PRN Reason: Severe Pain (Level 7-10) Last Admin: 11/15/22 12:01 Dose: 50 mg Multivitamins/Minerals (Multivitamin W/Minerals Tablet) 1 tab PO DAILYWM [facility] Last Admin: 11/16/22 08:45 Dose: 1 tab Naloxone HCl (Naloxone 0.4 Mg/Ml Vial) 0.4 mg IVP PRN PRN PRN Reason: respiration <10 Nystatin (Nystatin Powder 15 Gm) 1 applic TOP BID [facility] Last Admin: 11/16/22 08:49 Dose: 1 applic Ondansetron HCl (Ondansetron 4 Mg/2 Ml Vial) 4 mg IVP Q4HR PRN PRN Reason: Nausea / Vomiting Last Admin: 11/14/22 11:06 Dose: 4 mg Polyethylene Glycol (Polyethylene Glycol 3350 17 Gm Packet) 17 gm PO DAILY [facility] Last Admin: 11/16/22 08:48 Dose: 17 gm Pregabalin (Pregabalin 100 Mg Capsule) 200 mg PO BID [facility] Last Admin: 11/16/22 08:48 Dose: 200 mg Sodium Chloride (Sodium Chloride Flush 0.9% 10 Ml Syringe) 10 ml IVP PRN PRN PRN Reason: NEEDED PER PROVIDER ORDERS Last Admin: 11/14/22 18:23 Dose: 10 ml Sodium Chloride (Sodium Chloride Flush 0.9% 10 Ml Syringe) 10 ml IVP 0100,0900,1700 [facility] Last Admin: 11/16/22 08:49 Dose: 10 ml Sodium Chloride (Sodium Chloride Flush 0.9% 10 Ml Syringe) 20 ml IVP PRN PRN PRN Reason: After Blood Draw Last Admin: 11/16/22 04:45 Dose: 20 ml Tizanidine HCl (Tizanidine 4 Mg Tablet) 8 mg PO QPM [facility] Last Admin: 11/15/22 20:27 Dose: 8 mg Atorvastatin Calcium 40 mg PO DAILY 08/21/20 Furosemide [Lasix] 20 mg PO DAILY 08/21/20 Levothyroxine Sodium [Levothyroxine] 150 mcg PO DAILY 08/21/20 Methadone [Methadone Hcl] 5 mg PO BID 08/21/20 Pregabalin [Lyrica] 150 mg PO BID 08/21/20 Warfarin [Coumadin] 5 mg PO DAILY 08/21/20 amLODIPine [Norvasc] 5 mg PO DAILY 08/21/20 tiZANidine [Zanaflex] 8 mg PO QPM 08/21/20 Metformin HCl [Metformin ER Osmotic] 500 mg PO BID 06/01/21 Aspirin [Aspirin EC] 1 tab PO DAILY PRN 11/14/22 Calcium Citrate/Vitamin D3 [Calcium Cit 315-Vit D3 250 Cpt] 2 tab PO DAILY 11/14/22 Cholecalciferol [Vitamin D3] 1 tab PO DAILY 11/14/22 Famotidine [Pepcid] 1 tab PO HS PRN 11/14/22 Lisinopril [Zestril] 1 tab PO DAILY 11/14/22 Multivitamin with Minerals [Multivitamins with Minerals] 1 tab PO DAILY 11/14/22 Pregabalin 1 cap PO BID 11/14/22 Objective - Vital Signs/Intake & Output Reviewed Vital Signs: Yes Vital Signs: Vital Signs x48h Temp Pulse Resp BP Pulse Ox O2 Flow Rate 11/16/22 10:05 36.7 C 44 L 8 L 130/63 98 4 11/16/22 09:54 10 L 11/16/22 09:15 16 11/16/22 09:06 36.6 C 55 L 16 119/67 95 4 11/16/22 08:10 36.6 C 54 L 13 125/54 L 97 4 11/16/22 07:00 36.4 C L 54 L 12 125/96 H 95 4 11/16/22 06:06 36.4 C L 43 L 9 L 131/61 H 97 4 11/16/22 06:00 36.4 C L 50 L 15 92/45 L 95 4 11/16/22 05:57 12 11/16/22 05:00 36.3 C L 45 L 12 97/58 L 95 4 11/16/22 04:00 36.2 C L 41 L 9 L 101/57 L 96 4 11/16/22 03:15 9 L 11/16/22 03:00 36.2 C L 47 L 9 L 108/75 95 4 Intake & Output: Intake & Output 11/13/22 11/14/22 11/15/22 11/16/22 23:59 23:59 23:59 23:59 Intake Total 1510 5218.33 6529.230 2127.854 Output Total 600 1875 1760 1861 Balance 910 3343.33 4769.230 266.854 - Objective General Appearance: positive: Alert (Daughter at the bedside.), Mild distress, Other (5 foot 6 elderly female who is 101 kg. Protuberant abdominal pannus even when she is laying down.) Eyes Bilateral: positive: PERRL, EOMI ENT: positive: No signs of dehydration Neck: positive: No JVD. negative: Stiff neck Respiratory: positive: No respiratory distress, Rales (At the bases. I have her give me a good deep cough and within 2 breaths the rales are gone. So I suspect she is developing atelectasis.). negative: Wheezes, Rhonchi Cardiovascular: positive: Regular rate & rhythm Abdomen: positive: Nml bowel sounds, No distention, Tenderness (RUQ) Skin: positive: Warm, Dry Extremities: positive: Non-tender, Full ROM, Pedal edema (trace) Neurologic/Psychiatric: positive: Oriented x3, CN's nml (2-12), Motor nml (but she is so weak she needs assist to reposition in bed, sit up) - Lab Results Fish Bones: 11/16/22 04:38 11/16/22 04:38 Other Labs: Lab Results x24hrs 11/16/22 11/16/22 11/16/22 Range/Units 07:59 04:38 04:38 WBC 7.9 (4.8-10.8) x10^3/uL RBC 3.36 L (4.20-5.40) 10^6/uL Hgb 10.1 L (12.0-16.0) g/dL Hct 33.0 L (37.0-47.0) % MCV 98.2 (81.0-99.0) fL MCH 30.1 (27.0-31.0) pg MCHC 30.6 L (32.0-36.0) g/dL RDW 15.0 (12.0-15.0) % Plt Count 227 (130-450) 10^3/uL MPV 11.2 H (7.9-10.8) fL Neut # (Auto) 5.8 (1.5-6.6) 10^3/uL Lymph # (Auto) 1.0 L (1.5-3.5) 10^3/uL Ada # (Auto) 0.8 (0.0-1.0) 10^3/uL Eos # (Auto) 0.2 (0.0-0.7) 10^3/uL Baso # (Auto) 0.1 (0.0-0.1) 10^3/uL Absolute Nucleated RBC 0.00 x10^3/uL Nucleated RBC % 0.0 /100WBC PT (9.9-12.6) secs INR (0.8-1.2) VBG pH 7.290 L (7.31-7.41) Ionized Calcium 1.05 L (1.15-1.33) mmol/L Sodium (135-145) mmol/L Potassium (3.5-5.0) mmol/L Chloride (101-111) mmol/L Carbon Dioxide (21-32) mmol/L Anion Gap (6-13) BUN (6-20) mg/dL Creatinine (0.4-1.0) mg/dL Estimated GFR (MDRD) (>89) Glucose (70-100) mg/dL POC Whole Bld Glucose 132 H (70 - 100) mg/dL Calcium (8.5-10.3) mg/dL Phosphorus (2.5-4.6) mg/dL Magnesium (1.7-2.8) mg/dL Total Bilirubin (0.2-1.0) mg/dL AST (10-42) IU/L ALT (10-60) IU/L Alkaline Phosphatase (42-121) IU/L Total Protein (6.7-8.2) g/dL Albumin (3.2-5.5) g/dL Globulin (2.1-4.2) g/dL Albumin/Globulin Ratio (1.0-2.2) Nasal Screen MRSA (PCR) (NEGATIVE) Blood Type 11/16/22 11/16/22 11/15/22 Range/Units 04:38 04:38 20:33 WBC (4.8-10.8) x10^3/uL RBC (4.20-5.40) 10^6/uL Hgb (12.0-16.0) g/dL Hct (37.0-47.0) % MCV (81.0-99.0) fL MCH (27.0-31.0) pg MCHC (32.0-36.0) g/dL RDW (12.0-15.0) % Plt Count (130-450) 10^3/uL MPV (7.9-10.8) fL Neut # (Auto) (1.5-6.6) 10^3/uL Lymph # (Auto) (1.5-3.5) 10^3/uL Ada # (Auto) (0.0-1.0) 10^3/uL Eos # (Auto) (0.0-0.7) 10^3/uL Baso # (Auto) (0.0-0.1) 10^3/uL Absolute Nucleated RBC x10^3/uL Nucleated RBC % /100WBC PT 20.6 H (9.9-12.6) secs INR 1.9 H (0.8-1.2) VBG pH (7.31-7.41) Ionized Calcium (1.15-1.33) mmol/L Sodium 143 (135-145) mmol/L Potassium 3.2 L (3.5-5.0) mmol/L Chloride 110 (101-111) mmol/L Carbon Dioxide 28 (21-32) mmol/L Anion Gap 5.0 L (6-13) BUN 13 (6-20) mg/dL Creatinine 0.7 (0.4-1.0) mg/dL Estimated GFR (MDRD) 82 L (>89) Glucose 134 H (70-100) mg/dL POC Whole Bld Glucose (70 - 100) mg/dL Calcium 7.3 L (8.5-10.3) mg/dL Phosphorus 2.5 (2.5-4.6) mg/dL Magnesium 1.7 (1.7-2.8) mg/dL Total Bilirubin 1.1 H (0.2-1.0) mg/dL AST 70 H (10-42) IU/L ALT 52 (10-60) IU/L Alkaline Phosphatase 303 H (42-121) IU/L Total Protein 5.5 L (6.7-8.2) g/dL Albumin 2.2 L (3.2-5.5) g/dL Globulin 3.3 (2.1-4.2) g/dL Albumin/Globulin Ratio 0.7 L (1.0-2.2) Nasal Screen MRSA (PCR) NEGATIVE (NEGATIVE) Blood Type 11/15/22 11/15/22 11/15/22 Range/Units 20:19 18:20 16:53 WBC (4.8-10.8) x10^3/uL RBC (4.20-5.40) 10^6/uL Hgb (12.0-16.0) g/dL Hct (37.0-47.0) % MCV (81.0-99.0) fL MCH (27.0-31.0) pg MCHC (32.0-36.0) g/dL RDW (12.0-15.0) % Plt Count (130-450) 10^3/uL MPV (7.9-10.8) fL Neut # (Auto) (1.5-6.6) 10^3/uL Lymph # (Auto) (1.5-3.5) 10^3/uL Ada # (Auto) (0.0-1.0) 10^3/uL Eos # (Auto) (0.0-0.7) 10^3/uL Baso # (Auto) (0.0-0.1) 10^3/uL Absolute Nucleated RBC x10^3/uL Nucleated RBC % /100WBC PT 27.6 H (9.9-12.6) secs INR 2.6 H (0.8-1.2) VBG pH (7.31-7.41) Ionized Calcium (1.15-1.33) mmol/L Sodium (135-145) mmol/L Potassium (3.5-5.0) mmol/L Chloride (101-111) mmol/L Carbon Dioxide (21-32) mmol/L Anion Gap (6-13) BUN (6-20) mg/dL Creatinine (0.4-1.0) mg/dL Estimated GFR (MDRD) (>89) Glucose (70-100) mg/dL POC Whole Bld Glucose 139 H 112 H (70 - 100) mg/dL Calcium (8.5-10.3) mg/dL Phosphorus (2.5-4.6) mg/dL Magnesium (1.7-2.8) mg/dL Total Bilirubin (0.2-1.0) mg/dL AST (10-42) IU/L ALT (10-60) IU/L Alkaline Phosphatase (42-121) IU/L Total Protein (6.7-8.2) g/dL Albumin (3.2-5.5) g/dL Globulin (2.1-4.2) g/dL Albumin/Globulin Ratio (1.0-2.2) Nasal Screen MRSA (PCR) (NEGATIVE) Blood Type 11/15/22 11/13/22 Range/Units 12:24 19:13 WBC (4.8-10.8) x10^3/uL RBC (4.20-5.40) 10^6/uL Hgb (12.0-16.0) g/dL Hct (37.0-47.0) % MCV (81.0-99.0) fL MCH (27.0-31.0) pg MCHC (32.0-36.0) g/dL RDW (12.0-15.0) % Plt Count (130-450) 10^3/uL MPV (7.9-10.8) fL Neut # (Auto) (1.5-6.6) 10^3/uL Lymph # (Auto) (1.5-3.5) 10^3/uL Ada # (Auto) (0.0-1.0) 10^3/uL Eos # (Auto) (0.0-0.7) 10^3/uL Baso # (Auto) (0.0-0.1) 10^3/uL Absolute Nucleated RBC x10^3/uL Nucleated RBC % /100WBC PT (9.9-12.6) secs INR (0.8-1.2) VBG pH (7.31-7.41) Ionized Calcium (1.15-1.33) mmol/L Sodium (135-145) mmol/L Potassium (3.5-5.0) mmol/L Chloride (101-111) mmol/L Carbon Dioxide (21-32) mmol/L Anion Gap (6-13) BUN (6-20) mg/dL Creatinine (0.4-1.0) mg/dL Estimated GFR (MDRD) (>89) Glucose (70-100) mg/dL POC Whole Bld Glucose 139 H (70 - 100) mg/dL Calcium (8.5-10.3) mg/dL Phosphorus (2.5-4.6) mg/dL Magnesium (1.7-2.8) mg/dL Total Bilirubin (0.2-1.0) mg/dL AST (10-42) IU/L ALT (10-60) IU/L Alkaline Phosphatase (42-121) IU/L Total Protein (6.7-8.2) g/dL Albumin (3.2-5.5) g/dL Globulin (2.1-4.2) g/dL Albumin/Globulin Ratio (1.0-2.2) Nasal Screen MRSA (PCR) (NEGATIVE) Blood Type B POSITIVE ABX Reporting Has patient been on IV antibiotics over the past 48 hours?: Yes Assessment/Plan - Problem List (1) Supratherapeutic INR Impression: When the patient was admitted she was admitted with an INR of greater than 10. She takes medication for atrial fibrillation which includes Coumadin. She was taking her medication in spite of not having any p.o. intake for 4 days. Between the liver being replaced by cancer, dehydration, and taking her Coumadin, she was supratherapeutic. She received FFP on admission. On the second day her INR was 4.7 and she received vitamin K. Yesterday, the third day, her INR was 4.3 and she received more vitamin K. We are attempting to get her down to less than 1.5. She needs this for radiology for liver biopsy. This morning her INR was 1.9. Radiology has counseled her biopsy and has asked that I treat her again. Family is understandably worried and upset. They really want this biopsy to see what the diagnosis is going to be to them let oncology know what treatment would be. After discussion with the radiologist on today, I am going to be giving her FFP. Repeating her INR stat an hour later. And then hopefully that will be below 1.5 to can continue to get the biopsy today. (2) Hypotension Impression: She was transferred to the ICU November 15 for her hypotension. In this unfortunate female, hypotension could be from the disease process in her liver. CT scan shows extensive, multiple, masses in the liver. A left paracolic gutter nodule, and lymphadenopathy. She does not appear to have signs and symptoms of sepsis with the source other than hypotension. There is no pulmonary, GI, or findings other than pericholecystic inflammation on CT done on admission. She is tender in the right upper quadrant. She is not having an MS. She does not have a GI bleed but could be bleeding in her liver due to mets and an elevated INR (but no tachycardia on vitals). She is not intravascularly depleted with dehydration Treatment consisted of Levophed to keep mean arterial pressure at 65. The repeat abdomen pelvis CT done yesterday for the intractable right upper quadrant pain has no evidence of obstruction. She continues to have left paracolic gutter lesion, a liver that is filled with innumerable masses. She has nonspecific pericholecystic fluid and wall thickening. The biliary tree and pancreatic duct are prominent without definite pathologic dilation or obstruction. Possible small splenic cyst. Pathologic appearing lymph nodes. Pelvis has a small amount of free fluid. Quintanilla is in place with an under distended bladder. She had a hysterectomy. Since infection could not be completely ruled out, I started her on broad- spectrum antibiotics with cefepime, vancomycin, and Flagyl. Today is day #2. She did have blood cultures on November 13. Those were positive today with gram- positive cocci. PCR has staph species. Since they became +3 days after they were done, I suspect this is contamination. I also ordered blood cultures on November 15. Those have been received and are in process. She is still requiring Levophed. Not really responding to the bolus of IV fluids, nor the Levophed. Plan: I will continue the antibiotics. Review the blood cultures done from yesterday when they are available. We will work with the Levophed today to see if I can take her off of it. She is otherwise comfortable. (3) RUQ abdominal pain Impression: This unfortunate female has already had imaging studies that tell us that she has multiple, multiple masses to her liver. The presumptive thought is that she has metastatic disease of unknown primary. There is nodularity along the capsule as well as the parenchyma. Gallbladder is unremarkable. No hydronephrosis. This was seen on the admission abdomen/pelvis CT November 13. That was done without contrast. Abdominal ultrasound also shows innumerable hypoechoic mass lesions. A credit and collections representative large complex mass in the posterior right hepatic lobe measures 6.2 cm. The intrahepatic ducts appear nondilated. There is dilation of the extrahepatic duct with the common bile duct 1 cm (think primary hepatobiliary w mets or a passed stone). Her total bili was 1.7 on admission. It is 1.1 today. AST was 206 on admission and is 66 today. ALT was 74 on admission and is now 45 today. Alk phos was 311 and is 220 today. Ammonia level is 15.3. The radiologist and I discussed the previous CT. And our plans moving forward. Our obvious suspicion is that she has cancer, either hepatobiliary of mets. Or unknown primary with mets. I am hoping for a pathologic piece of tissue to give us the diagnosis. I was worried that she may be bleeding in her liver causing such new intractable pain. After I reviewed her liver function studies, I also thought she could be having gallbladder symptoms even though she did not have stones on the admission CT. If her elevated liver function studies were from tumor, they should not be going down. And they are going down. Radiologist is worried that they do not have a contrasted CAT scan to let him know if they will be getting into trouble with an angioma. So I ordered a multiphase CT of the abdomen yesterday. There is no hemangioma. No bleeding under the capsule. The liver masses were much better delineated for the radiologist. We agreed that as long as I can get her INR below 2 she could go to biopsy today. However, we reviewed the literature with today's radiologist. Their guidelines state that the INR needs to be below 1.5. See problem #1. Her pain is better with the morphine RADIATION ONCOLOGY MANAGER pump. I have ordered a 1 mg/h continuous infusion rate. I am allowing her 1 mg every 10 minutes with a max of 8 mg in 4 hours Plan: Continue above RADIATION ONCOLOGY MANAGER pump Palliative care consult to help me adjust the pump and converted to p.o. meds. She cannot stand the RADIATION ONCOLOGY MANAGER pump and definitely will eventually need to go home FFP 1 unit stat followed by stat INR Liver biopsy today (4) Altered mental status Impression: She has been steadily improving. By November 15 she was alert enough to process the information I was telling her and be appropriately grief stricken and fearful about the cancer diagnosis. She was able to tell me what she was feeling, able to describe her pain well. , who was at the bedside yesterday, endorsed that she was the best she has been since being in the hospital. She continues to be fatigued, weak, but is oriented to person place and time. Plan: Most likely her altered mental status was from the dehydration and the pain of liver mets. PT and OT have been ordered but I am holding off on their evaluation and management until she can get out of bed and not be a RADIATION ONCOLOGY MANAGER pump. I am hoping that will be tomorrow. (5) Acute kidney injury resolved. Labs were all reviewed. She normally runs a creatinine of 0.8. With her history of 4 days of poor oral intake, she is dehydrated and this caused her RAFAEL. Her BUN/creatinine on admission were 41/2.3. Not only was her lisinopril stopped, she was started on IV fluids and >> 34/1.6>>18/0.9>>13/0.7 today. Plan: Avoid nephrotoxins Continue with IV fluids Follow BMP daily (5) Orthostatic hypotension First set of orthostatic vital signs were done before the patient starts participating w/ PT and they were abnormal: Supine BP 120/62, HR 72. Sitting BP 108/67, HR 80. Standing BP 89/63, HR 89. This only confirmed the intravascular depletion from dehydration. 11/15, with her severe hypotension in the 70s systolic, she was transferred to the ICU and started on Levophed. Plan: Hold off on working with PT for now. Stop orthostatic BP checks for now. Continue to monitor her blood pressure and when her blood pressure is no longer hypotensive she can start with therapy. (7) Liver masses Her CT scan then the ultrasound done showed "innumerable" masses in the liver. There is one particularly large mass measuring 6.2 cm in the right posterior lobe. The ED provider was the first 1 to tell the patient and that she probably has cancer. We had planned to get tissue sample for pathology. Conversation was held with radiology on November 14 and we needed to normalize her INR. On November 14 she received vitamin K and FFP. In spite of that, her INR is still over 4 today. Today's radiologist wanted better imaging with contrast and a repeat CT was done. Not only does she have the same liver masses, she appears to have nodules in the paracolic gutter indicating carcinomatosis. Lymphadenopathy. She is still not ready for biopsy because of INR. I am also noting that she has changes of inflammation on her gallbladder. Could you have passed a stone? Could she have primary hepatobiliary cancer that has metastasized. In speaking to radiology I repeated the CT of abdomen and used contrast 11/15, and the repeat CAT scan has been helpful so he does not have to worry about a hemangioma. I also spoke to oncology in the medical ambulatory clinic 11/15. I presented the case to the oncologist. Her hypotension and possible sepsis is definitely concerning. But they feel that if we can get her through this temporary phase of illness, and have a tissue diagnosis, there are therapies that could allow her a decent quality of life in an extended life of a few years. They feel it is worth getting a liver biopsy and moving forward with at least getting a tissue diagnosis. I also spoke to the patient about CODE STATUS on 11/15. She really did understand the possibility that she could have a terminal illness and she was understandably tearful and grief stricken. This is all happening so fast. I discussed what the resuscitative effort would mean with regards to CPR and intubation. She states that she does not want that. While she is willing to go to do treatment, get a biopsy, and see how she does, she feels that a full on resuscitative measures with CPR and intubation would not be what she wants. "What would be the point" is her statement. So CODE STATUS was changed to DO NOT RESUSCITATE. Some of the tumor markers have already come back. Alpha-fetoprotein is 1.8. Normal levels. CA 15-3 is 623. High. CA 19-9 antigen is pending. Ca1 25 antigen is 14 and within normal range. CEA is 1633.5. Plan: Tumor markers as already discussed above Vitamin K 10 mg p.o. today again FFP again She has a POLST form at the bedside that she would like me to fill out with her. I will be doing that today. She is asked that her and daughter Katy be the points of contact for the POLST form (8) Transaminitis The family was all in the room and reported that the patient gets yearly thorough blood tests. These were done in April 2022 and the LFTs were normal then ( I reviewed all labs in this EMR). I questioned her about alcohol use and she hardly uses any. The and other family members concur. In following her liver function studies daily, they are improving. If she truly had LFTs that were elevated because of tumor, the LFTs would not be getting better. Since they are getting better it makes me wonder if she has a transitory process such as cholecystitis or a passed stone giving her the right upper quadrant pain that so severe today. I reiterated to them that her liver function studies could be normal in spite of having tumor in the liver. I really do not think that something was missed in April on the basis of labs. Plan: Follow LFTs daily Avoid hepatotoxins Work-up of the liver mets as described in #3 above Started on antibiotics (8) DM II The patient takes metformin. The admitted she does not really follow a diabetic diet. Our treatment consist of ACHS fingerstick checks and sliding scale insulin coverage for this. A1c is 7.1%. 11/14 her glucose was 96, 124, 154, 131. 11/15 her glucose was 108, 139. , 112, 139 Today her glucose is 132 She is eating 25 to 50% of her food. She says that she appreciates her diet being changed to regular diet on November 15. She really did not like the dysphagia pured diet. Plan: Continue with ACHS fingerstick checks and sliding scale insulin coverage (9) Chronic pain I asked the patient and why she is on methadone. There is a history of previously needing to be on oxycodone at very high doses which was then transitioned to methadone. Her chronic pain was in her neck and lower back. 5/9 her right upper quadrant pain is so severe that she is requiring doses of morphine IV that are not holding her. It is not her diffuse pain that is bothering her. I stopped the methadone and started her on a [employer]ATION [employer]COL[employer] MANAGER pump yesterday. Her pain is better controlled with the [employer]IATION [employer]COLOGY MANAGER pump. Plan: RADIATION [employer]COL[employer]Y MANAGER pump as noted above (10) Hypothyroidism Her TSH is elevated but free T4 is normal. Plan: Continue with her same home thyroid replacement dose (11) Hx of CVA Patient has had 3 strokes, 2002, 2012 and 2013. 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 She has chronic weakness on one side. She uses walk She is on chronic warfarin since those strokes Plan: Eventually she will need PT and OT evaluations. (12) ALINA Plan: I have reiterated to her family that her home machine needs to be brought in here. Especially in view of the fact of the morphine use.
[2022-11-16] MEDS ORDERED: PHYTONADIONE 10 MG/ML AMP PO ONE (10:58)
[2022-11-16] MEDS ORDERED: CHERRY SYRUP 10 ML UDC PO ONE (10:58)
[2022-11-16] MEDS ORDERED: LIDOCAINE-MPF 1% 5 ML VIAL ONE (13:28)
[2022-11-16] MEDS: dexAMETHasone 4 MG TABLET PO SCH ×2 (13:50→17:52)
[2022-11-16 13:54] LABS: INR 1.7 (0.8-1.2); PT - PROTHROMBIN TIME 18.7 secs (9.9-12.6)
[2022-11-16 16:26] LABS: VBG PH 7.3 (7.31-7.41)
[2022-11-16 16:27] LABS: CALCIUM, IONIZED 1.06 mmol/L (1.15-1.33)
[2022-11-16] MEDS: MORPHINE PCA 50 MG IV PRN (17:21)
[2022-11-16] MEDS ORDERED: VANCOMYCIN INJ 1.5 GM in SODIUM CHLORIDE 0.9% 500 ML IV SCH (18:00)
[2022-11-16] MEDS ORDERED: VANCOMYCIN 1 GM VIAL ONE (18:50)
[2022-11-16] MEDS: tiZANidine 4 MG TABLET PO SCH (20:38)
[2022-11-16 22:56] LABS: CALCIUM, IONIZED 1.08 mmol/L (1.15-1.33); VBG PH 7.292 (7.31-7.41)
[2022-11-17] MEDS ORDERED: MAGNESIUM SULFATE 2 GRAM 2 GM/50 ML BAG IV ONE (02:05)
[2022-11-17] MEDS ORDERED: CALCIUM GLUC 1,000MG/50ML-NACL 1,000 MG/50 ML BAG IV ONE (02:05)
[2022-11-17 04:48] LABS: BASOPHILS % (AUTO) 0.3 %; HCT - HEMATOCRIT 33.6 % (37.0-47.0); HGB - HEMOGLOBIN 10.2 g/dL (12.0-16.0); LYMPHOCYTES # (AUTO) 0.6 10^3/uL (1.5-3.5); LYMPHOCYTES % (AUTO) 6.3 %; MEAN CORPUSCULAR HEMOGLOBIN 29.7 pg (27.0-31.0); MEAN CORPUSCULAR HGB CONC 30.4 g/dL (32.0-36.0); MEAN PLATELET VOLUME 11.1 fL (7.9-10.8); MONOCYTES # (AUTO) 0.7 10^3/uL (0.0-1.0); MONOCYTES % (AUTO) 7.9 %; NEUTROPHILS % (AUTO) 85.2 %; PLT - PLATELET COUNT 233 10^3/uL (130-450); RED BLOOD COUNT 3.43 10^6/uL (4.20-5.40); RED CELL DISTRIBUTION WIDTH 15.1 % (12.0-15.0); WHITE BLOOD COUNT 9.3 x10^3/uL (4.8-10.8)
[2022-11-17 04:52] LABS: CALCIUM, IONIZED 1.07 mmol/L (1.15-1.33); VBG PH 7.31 (7.31-7.41)
[2022-11-17] MEDS: NOREPINEPHRINE/D5W 8 MG/250 ML BAG IV SCH ×2 (04:55→15:54)
[2022-11-17] MEDS: SODIUM CHLORIDE FLUSH 0.9% 10 ML SYRINGE IVP SCH ×3 (04:56→17:11)
[2022-11-17] MEDS: SODIUM CHLORIDE FLUSH 0.9% 10 ML SYRINGE IVP PRN (04:56)
[2022-11-17] MEDS: SODIUM CHLORIDE 0.9% 1,000 ML IV SCH ×3 (04:57→17:10)
[2022-11-17 04:58] LABS: INR 1.9 (0.8-1.2); PT - PROTHROMBIN TIME 20.4 secs (9.9-12.6)
[2022-11-17 05:03] LABS: MAGNESIUM 1.7 mg/dL (1.7-2.8); PHOSPHORUS 2.9 mg/dL (2.5-4.6)
[2022-11-17] MEDS: metroNIDAZOLE 500 MG/100 ML 500 MG/100 ML BAG IV SCH ×3 (05:39→22:08)
[2022-11-17] MEDS: CEFEPIME 2 GM in SODIUM CHLORIDE 0.9% MINIBAG 100 ML IV SCH ×3 (05:39→21:57)
[2022-11-17] MEDS: MIDODRINE 2.5 MG TABLET PO SCH ×3 (05:39→22:14)
[2022-11-17] MEDS: LEVOTHYROXINE 75 MCG TABLET PO SCH (05:47)
[2022-11-17] MEDS: POTASSIUM CHLOR 20 MEQ/100 ML 20 MEQ/100 ML BAG IV SCH ×4 (07:36→17:09)
[2022-11-17] MEDS: INSULIN LISPRO 300 UNIT/3 ML PEN SUBQ SCH ×4 (08:31→20:55)
[2022-11-17] MEDS: CALCIUM CITRATE 250 MG TABLET PO SCH (08:32)
[2022-11-17] MEDS: CHOLECALCIFEROL 25 MCG TABLET PO SCH (08:32)
[2022-11-17] MEDS: dexAMETHasone 4 MG TABLET PO SCH ×2 (08:32→17:11)
[2022-11-17] MEDS: MULTIVITAMIN W/MINERALS TABLET PO SCH (08:33)
[2022-11-17] MEDS: NYSTATIN POWDER 15 GM TOP SCH ×2 (08:33→21:15)
[2022-11-17] MEDS: PREGABALIN 100 MG CAPSULE PO SCH ×2 (08:33→21:00)
[2022-11-17] MEDS: FAMOTIDINE 20 MG TABLET PO SCH ×2 (08:33→21:18)
[2022-11-17] MEDS: polyethylene glycoL 3350 17 GM PACKET PO SCH (08:33)
[2022-11-17] MEDS: DOCUSATE SODIUM 250 MG CAPSULE PO SCH (12:00)
[2022-11-17 12:37] LABS: CALCIUM, IONIZED 1.11 mmol/L (1.15-1.33); VBG PH 7.307 (7.31-7.41)
[2022-11-17 12:45] LABS: POTASSIUM 3.5 mmol/L (3.5-5.0)
--- NOTE | 2022-11-17 15:53 | PROVIDER PROGRESS NOTE ---
Subjective - Prog Note Date Prog Note Date: 11/17/22 Prog Note Time: 16:11 - Subjective Subjective: Tired. But no new events. Blood pressure stays stable on the Levophed. She is down to 2 mcg. She has been consistently stable or elevated today. Yesterday she had her moments where she was 109/62 or 105/69 but then she come back up. Starting at about 11:00 last night to today she is 120s, 130s, and occasionally 150s. There is no fever, cough, chest congestion. The main problem continues to be the right upper quadrant pain but that is controlled with the CARE DIRECTOR RN pump. Current Medications - Current Medications Current Medications: Active Medications Aspirin (Aspirin Ec 325 Mg Tablet) 325 mg PO DAILY PRN PRN Reason: PAIN 1-4 Calcium Citrate (Calcium Citrate 250 Mg Tablet) 500 mg PO DAILY [facility] Last Admin: 11/17/22 08:32 Dose: 500 mg Cholecalciferol (Cholecalciferol 25 Mcg Tablet) 25 mcg PO DAILY [facility] Last Admin: 11/17/22 08:32 Dose: 25 mcg Dexamethasone (Dexamethasone 4 Mg Tablet) 2 mg PO BIDWM [facility] Last Admin: 11/17/22 08:32 Dose: 2 mg Docusate Sodium (Docusate Sodium 250 Mg Capsule) 250 - 500 mg PO DAILY [facility] Last Admin: 11/17/22 12:00 Dose: 250 mg Famotidine (Famotidine 20 Mg Tablet) 20 mg PO BID [facility] Last Admin: 11/17/22 08:33 Dose: 20 mg Sodium Chloride (Normal Saline 0.9%) 1,000 mls @ 125 mls/hr IV .Q8H [facility] Last Admin: 11/17/22 14:32 Dose: 125 mls/hr Norepinephrine Bitartrate (Levophed 8 Mg/250 Ml D5w) 8 mg in 250 mls @ 15 mls/hr IV .[id number] [facility]; Protocol Last Admin: 11/17/22 15:54 Dose: 1 mcg/min, 1.875 mls/hr Cefepime HCl 2 gm/ Sodium (Chloride) 100 mls @ 200 mls/hr IV TID [facility] Last Infusion: 11/17/22 15:31 Dose: Infused Metronidazole (Flagyl 500 Mg/100 Ml) 500 mg in 100 mls @ 100 mls/hr IV TID [facility] Last Infusion: 11/17/22 15:55 Dose: Infused Vancomycin HCl 1.5 gm/ Sodium (Chloride) 500 mls @ 167 mls/hr IV Q24H [facility] Last Infusion: 11/16/22 22:20 Dose: Infused Sodium Chloride (Normal Saline 0.9%) 500 mls @ 20 mls/hr IV Q24H PRN PRN Reason: TKO RATE Last Admin: 11/17/22 06:30 Dose: 20 mls/hr Ibuprofen (Ibuprofen 400 Mg Tablet) 400 mg PO Q4HR PRN PRN Reason: Pain 1 to 4 Last Admin: 11/15/22 20:26 Dose: 400 mg Insulin Human Lispro (Insulin Lispro 300 Unit/3 Ml Pen) 1 - 9 unit SUBQ 0800,1200,1700,2100 [facility]; Protocol Last Admin: 11/17/22 12:00 Dose: 5 unit Levothyroxine Sodium (Levothyroxine 75 Mcg Tablet) 150 mcg PO QDAC [facility] Last Admin: 11/17/22 05:47 Dose: 150 mcg Midodrine (Midodrine 2.5 Mg Tablet) 5 mg PO TID [facility] Last Admin: 11/17/22 14:28 Dose: 5 mg Mineral Oil (Min Oil/Dimethicon/Coconut Oil 92 Gm Tube) 1 applic TOP PRN PRN PRN Reason: Skin Care Last Admin: 11/16/22 21:34 Dose: 1 applic Morphine Sulfate/Sodium Chloride (Morphine Joint Sealer 50 Mg) 50 mg IV CARE DIRECTOR RN PRN; Protocol PRN Reason: Severe Pain (Level 7-10) Last Admin: 11/16/22 17:21 Dose: 50 mg Multivitamins/Minerals (Multivitamin W/Minerals Tablet) 1 tab PO DAILYWM [facility] Last Admin: 11/17/22 08:33 Dose: 1 tab Naloxone HCl (Naloxone 0.4 Mg/Ml Vial) 0.4 mg IVP PRN PRN PRN Reason: respiration <10 Nystatin (Nystatin Powder 15 Gm) 1 applic TOP BID [facility] Last Admin: 11/17/22 08:33 Dose: 1 applic Ondansetron HCl (Ondansetron 4 Mg/2 Ml Vial) 4 mg IVP Q4HR PRN PRN Reason: Nausea / Vomiting Last Admin: 11/14/22 11:06 Dose: 4 mg Polyethylene Glycol (Polyethylene Glycol 3350 17 Gm Packet) 17 gm PO DAILY [facility] Last Admin: 11/17/22 08:33 Dose: 17 gm Pregabalin (Pregabalin 100 Mg Capsule) 200 mg PO BID [facility] Last Admin: 11/17/22 08:33 Dose: 200 mg Sodium Chloride (Sodium Chloride Flush 0.9% 10 Ml Syringe) 10 ml IVP PRN PRN PRN Reason: NEEDED PER PROVIDER ORDERS Last Admin: 11/14/22 18:23 Dose: 10 ml Sodium Chloride (Sodium Chloride Flush 0.9% 10 Ml Syringe) 10 ml IVP 0100,0900,1700 [facility] Last Admin: 11/17/22 08:33 Dose: 10 ml Sodium Chloride (Sodium Chloride Flush 0.9% 10 Ml Syringe) 20 ml IVP PRN PRN PRN Reason: After Blood Draw Last Admin: 11/17/22 04:56 Dose: 20 ml Tizanidine HCl (Tizanidine 4 Mg Tablet) 8 mg PO QPM [facility] Last Admin: 11/16/22 20:38 Dose: 8 mg Atorvastatin Calcium 40 mg PO DAILY 08/21/20 Furosemide [Lasix] 20 mg PO DAILY 08/21/20 Levothyroxine Sodium [Levothyroxine] 150 mcg PO DAILY 08/21/20 Methadone [Methadone Hcl] 5 mg PO BID 08/21/20 Pregabalin [Lyrica] 150 mg PO BID 08/21/20 Warfarin [Coumadin] 5 mg PO DAILY 08/21/20 amLODIPine [Norvasc] 5 mg PO DAILY 08/21/20 tiZANidine [Zanaflex] 8 mg PO QPM 08/21/20 Metformin HCl [Metformin ER Osmotic] 500 mg PO BID 06/01/21 Aspirin [Aspirin EC] 1 tab PO DAILY PRN 11/14/22 Calcium Citrate/Vitamin D3 [Calcium Cit 315-Vit D3 250 Cpt] 2 tab PO DAILY 11/14/22 Cholecalciferol [Vitamin D3] 1 tab PO DAILY 11/14/22 Famotidine [Pepcid] 1 tab PO HS PRN 11/14/22 Lisinopril [Zestril] 1 tab PO DAILY 11/14/22 Multivitamin with Minerals [Multivitamins with Minerals] 1 tab PO DAILY 11/14/22 Pregabalin 1 cap PO BID 11/14/22 Objective - Vital Signs/Intake & Output Reviewed Vital Signs: Yes Vital Signs: Vital Signs x48h Temp Pulse Resp BP Pulse Ox O2 Flow Rate 11/17/22 15:00 36.4 C L 48 L 13 136/76 H 98 4 11/17/22 14:09 52 L 121/62 11/17/22 14:00 36.4 C L 52 L 12 147/131 H 92 4 11/17/22 13:00 36.4 C L 50 L 10 L 137/73 H 99 4 11/17/22 12:00 44 L 12 139/95 H 98 4 11/17/22 11:00 36.2 C L 43 L 8 L 143/72 H 99 4 11/17/22 10:07 15 11/17/22 10:00 36.0 C L 47 L 10 L 126/68 100 4 11/17/22 09:30 12 11/17/22 09:00 36.0 C L 50 L 12 129/71 100 4 11/17/22 08:18 10 L 11/17/22 08:00 36.2 C L 43 L 9 L 137/75 H 99 4 Intake & Output: Intake & Output 11/14/22 11/15/22 11/16/22 11/17/22 23:59 23:59 23:59 23:59 Intake Total 5218.33 6529.230 5500.083 2837.500 Output Total 1875 1760 2836 2275 Balance 3343.33 4769.230 2664.083 562.500 - Objective General Appearance: positive: Alert, Mild distress (From right upper quadrant pain), Other (Moderately deaf, but if you been in close and speak directly to her she can hear what you are saying and processes appropriately) Eyes Bilateral: positive: PERRL, EOMI ENT: positive: No signs of dehydration Neck: positive: No JVD. negative: Stiff neck Respiratory: positive: No respiratory distress, Rhonchi. negative: Wheezes, Rales Cardiovascular: positive: Regular rate & rhythm Abdomen: positive: Nml bowel sounds, Tenderness (Right upper quadrant. 2 days ago it was exquisite and she was crying out with palpation. Today she feels like it is still present but not agonizingly painful), Other (Eating 0% and as high as 75% of her food.Last bowel movement November 11). negative: Guarding, Rebound Skin: positive: Warm, Dry, Pallor Extremities: positive: Full ROM, Pedal edema Neurologic/Psychiatric: positive: Oriented x3, CN's nml (2-12) (Except the deafness.), Motor nml - Lab Results Fish Bones: 11/17/22 04:36 11/17/22 12:18 Other Labs: Lab Results x24hrs 11/17/22 11/17/22 11/17/22 Range/Units 12:18 12:18 11:41 WBC (4.8-10.8) x10^3/uL RBC (4.20-5.40) 10^6/uL Hgb (12.0-16.0) g/dL Hct (37.0-47.0) % MCV (81.0-99.0) fL MCH (27.0-31.0) pg MCHC (32.0-36.0) g/dL RDW (12.0-15.0) % Plt Count (130-450) 10^3/uL MPV (7.9-10.8) fL Neut # (Auto) (1.5-6.6) 10^3/uL Lymph # (Auto) (1.5-3.5) 10^3/uL [place] # (Auto) (0.0-1.0) 10^3/uL Eos # (Auto) (0.0-0.7) 10^3/uL Baso # (Auto) (0.0-0.1) 10^3/uL Absolute Nucleated RBC x10^3/uL Nucleated RBC % /100WBC PT (9.9-12.6) secs INR (0.8-1.2) VBG pH 7.307 L (7.31-7.41) Ionized Calcium 1.11 L (1.15-1.33) mmol/L Potassium 3.5 (3.5-5.0) mmol/L POC Whole Bld Glucose 240 H (70 - 100) mg/dL Phosphorus (2.5-4.6) mg/dL Magnesium 2.0 (1.7-2.8) mg/dL 11/17/22 11/17/22 11/17/22 Range/Units 08:00 04:36 04:36 WBC (4.8-10.8) x10^3/uL RBC (4.20-5.40) 10^6/uL Hgb (12.0-16.0) g/dL Hct (37.0-47.0) % MCV (81.0-99.0) fL MCH (27.0-31.0) pg MCHC (32.0-36.0) g/dL RDW (12.0-15.0) % Plt Count (130-450) 10^3/uL MPV (7.9-10.8) fL Neut # (Auto) (1.5-6.6) 10^3/uL Lymph # (Auto) (1.5-3.5) 10^3/uL [place] # (Auto) (0.0-1.0) 10^3/uL Eos # (Auto) (0.0-0.7) 10^3/uL Baso # (Auto) (0.0-0.1) 10^3/uL Absolute Nucleated RBC x10^3/uL Nucleated RBC % /100WBC PT (9.9-12.6) secs INR (0.8-1.2) VBG pH 7.310 (7.31-7.41) Ionized Calcium 1.07 L (1.15-1.33) mmol/L Potassium 3.2 L (3.5-5.0) mmol/L POC Whole Bld Glucose 163 H (70 - 100) mg/dL Phosphorus (2.5-4.6) mg/dL Magnesium (1.7-2.8) mg/dL 11/17/22 11/17/22 11/17/22 Range/Units 04:36 04:36 04:36 WBC 9.3 (4.8-10.8) x10^3/uL RBC 3.43 L (4.20-5.40) 10^6/uL Hgb 10.2 L (12.0-16.0) g/dL Hct 33.6 L (37.0-47.0) % MCV 98.0 (81.0-99.0) fL MCH 29.7 (27.0-31.0) pg MCHC 30.4 L (32.0-36.0) g/dL RDW 15.1 H (12.0-15.0) % Plt Count 233 (130-450) 10^3/uL MPV 11.1 H (7.9-10.8) fL Neut # (Auto) 8.0 H (1.5-6.6) 10^3/uL Lymph # (Auto) 0.6 L (1.5-3.5) 10^3/uL [place] # (Auto) 0.7 (0.0-1.0) 10^3/uL Eos # (Auto) 0.0 (0.0-0.7) 10^3/uL Baso # (Auto) 0.0 (0.0-0.1) 10^3/uL Absolute Nucleated RBC 0.00 x10^3/uL Nucleated RBC % 0.0 /100WBC PT 20.4 H (9.9-12.6) secs INR 1.9 H (0.8-1.2) VBG pH (7.31-7.41) Ionized Calcium (1.15-1.33) mmol/L Potassium (3.5-5.0) mmol/L POC Whole Bld Glucose (70 - 100) mg/dL Phosphorus 2.9 (2.5-4.6) mg/dL Magnesium 1.7 (1.7-2.8) mg/dL 11/16/22 11/16/22 11/16/22 Range/Units 22:45 22:45 22:45 WBC (4.8-10.8) x10^3/uL RBC (4.20-5.40) 10^6/uL Hgb (12.0-16.0) g/dL Hct (37.0-47.0) % MCV (81.0-99.0) fL MCH (27.0-31.0) pg MCHC (32.0-36.0) g/dL RDW (12.0-15.0) % Plt Count (130-450) 10^3/uL MPV (7.9-10.8) fL Neut # (Auto) (1.5-6.6) 10^3/uL Lymph # (Auto) (1.5-3.5) 10^3/uL [place] # (Auto) (0.0-1.0) 10^3/uL Eos # (Auto) (0.0-0.7) 10^3/uL Baso # (Auto) (0.0-0.1) 10^3/uL Absolute Nucleated RBC x10^3/uL Nucleated RBC % /100WBC PT (9.9-12.6) secs INR (0.8-1.2) VBG pH 7.292 L (7.31-7.41) Ionized Calcium 1.08 L (1.15-1.33) mmol/L Potassium (3.5-5.0) mmol/L POC Whole Bld Glucose (70 - 100) mg/dL Phosphorus 3.3 (2.5-4.6) mg/dL Magnesium 1.6 L (1.7-2.8) mg/dL 11/16/22 11/16/22 11/16/22 Range/Units 20:39 17:35 16:14 WBC (4.8-10.8) x10^3/uL RBC (4.20-5.40) 10^6/uL Hgb (12.0-16.0) g/dL Hct (37.0-47.0) % MCV (81.0-99.0) fL MCH (27.0-31.0) pg MCHC (32.0-36.0) g/dL RDW (12.0-15.0) % Plt Count (130-450) 10^3/uL MPV (7.9-10.8) fL Neut # (Auto) (1.5-6.6) 10^3/uL Lymph # (Auto) (1.5-3.5) 10^3/uL [place] # (Auto) (0.0-1.0) 10^3/uL Eos # (Auto) (0.0-0.7) 10^3/uL Baso # (Auto) (0.0-0.1) 10^3/uL Absolute Nucleated RBC x10^3/uL Nucleated RBC % /100WBC PT (9.9-12.6) secs INR (0.8-1.2) VBG pH 7.300 L (7.31-7.41) Ionized Calcium 1.06 L (1.15-1.33) mmol/L Potassium (3.5-5.0) mmol/L POC Whole Bld Glucose 200 H 143 H (70 - 100) mg/dL Phosphorus (2.5-4.6) mg/dL Magnesium (1.7-2.8) mg/dL 11/16/22 Range/Units 16:14 WBC (4.8-10.8) x10^3/uL RBC (4.20-5.40) 10^6/uL Hgb (12.0-16.0) g/dL Hct (37.0-47.0) % MCV (81.0-99.0) fL MCH (27.0-31.0) pg MCHC (32.0-36.0) g/dL RDW (12.0-15.0) % Plt Count (130-450) 10^3/uL MPV (7.9-10.8) fL Neut # (Auto) (1.5-6.6) 10^3/uL Lymph # (Auto) (1.5-3.5) 10^3/uL [place] # (Auto) (0.0-1.0) 10^3/uL Eos # (Auto) (0.0-0.7) 10^3/uL Baso # (Auto) (0.0-0.1) 10^3/uL Absolute Nucleated RBC x10^3/uL Nucleated RBC % /100WBC PT (9.9-12.6) secs INR (0.8-1.2) VBG pH (7.31-7.41) Ionized Calcium (1.15-1.33) mmol/L Potassium (3.5-5.0) mmol/L POC Whole Bld Glucose (70 - 100) mg/dL Phosphorus (2.5-4.6) mg/dL Magnesium 1.7 (1.7-2.8) mg/dL ABX Reporting Has patient been on IV antibiotics over the past 48 hours?: Yes Assessment/Plan - Problem List (1) Hypotension Impression: She was transferred to the ICU November 15 for her hypotension. In this unfortunate female, hypotension could be from the disease process in her liver. CT scan shows extensive, multiple, masses in the liver. A left paracolic gutter nodule, and lymphadenopathy. She does not appear to have signs and symptoms of sepsis other than hypotension and no objective source on CT, CXR or UA. There is no pulmonary, GI, or findings other than pericholecystic inflammation on CT done on admission. She is tender in the right upper quadrant. She is not having an NE. She does not have a GI bleed but could be bleeding in her liver due to mets and an elevated INR (but no tachycardia on vitals). She is not intravascularly depleted with dehydration Treatment consisted of Levophed to keep mean arterial pressure at 65. The repeat abdomen pelvis CT done yesterday for the intractable right upper quadrant pain has no evidence of obstruction. She continues to have left paracolic gutter lesion, a liver that is filled with innumerable masses. She has nonspecific pericholecystic fluid and wall thickening. The biliary tree and pancreatic duct are prominent without definite pathologic dilation or obstruction. Possible small splenic cyst. Pathologic appearing lymph nodes. Pelvis has a small amount of free fluid. Quintanilla is in place with an under distended bladder. She had a hysterectomy. Since infection could not be completely ruled out, I started her on broad- spectrum antibiotics with cefepime, vancomycin, and Flagyl. Today is day #3. She did have blood cultures on November 13. Those were positive today with gram- positive cocci. PCR has staph species. Since they became positive 3 days after they were done, I suspect this is contamination. I also ordered blood cultures on November 15. Those blood cultures have had no growth after 24 hours. Levophed continues at 2 mcg. Blood pressure is 136 systolic at times. Urine output is maintained. Plan: Stop empiric antibiotics and monitor for signs and symptoms of infection I Reduced Levophed to 1 mcg and see how she does. I have again encouraged nursing to see if we can get her off the Levophed. I have asked nursing to please get this patient out of bed and into a chair. And I have asked physical therapy to start working with her. (2) Supratherapeutic INR Impression: When the patient was admitted she was admitted with an INR of greater than 10. She takes medication for atrial fibrillation which includes Coumadin. She was taking her medication in spite of not having any p.o. intake for 4 days. Between the liver being replaced by cancer, dehydration, and taking her Coumadin, she was supratherapeutic. She received FFP on admission. On the second day her INR was 4.7 and she received vitamin K. the third day, her INR was 4.3 and she received more vitamin K. We are attempting to get her down to less than 1.5. She needs this for radiology for liver biopsy. On the 4th day, INR was 1.9. Radiology had cancelled her biopsy and has asked that I treat her again for the INR. Family is understandably worried and upset. They really want this biopsy to see what the diagnosis is going to be to them let oncology know what treatment would be. I ordered fresh frozen plasma. But we ended up not using it. Radiology reviewed the chart and felt that since the patient was on Levophed, "hemodynamically unstable", she was not a good candidate for liver biopsy due to the risk of bleeding. As such the biopsy was canceled. Radiology was able to come and speak to the family and explained their thought process to the family. (3) RUQ abdominal pain Impression: This unfortunate female has already had imaging studies that tell us that she has multiple, multiple masses to her liver. The presumptive thought is that she has metastatic disease of unknown primary. There is nodularity along the capsule as well as the parenchyma. Gallbladder is unremarkable. No h ydronephrosis. This was seen on the admission abdomen/pelvis CT November 13. That was done without contrast. Abdominal ultrasound also shows innumerable hypoechoic mass lesions. A direct marketing representative large complex mass in the posterior right hepatic lobe measures 6.2 cm. The intrahepatic ducts appear nondilated. There is dilation of the extrahepatic duct with the common bile duct 1 cm (think primary hepatobiliary w mets or a passed stone). Her total bili was 1.7 on admission. It is 1.1 today. AST was 206 on admission and is 66 today. ALT was 74 on admission and is now 45 today. Alk phos was 311 and is 220 today. Ammonia level is 15.3. 11/15 The radiologist and I discussed the previous CT. And our plans moving forward. Our obvious suspicion is that she has cancer, either hepatobiliary of mets. Or unknown primary with mets. I am hoping for a pathologic piece of tissue to give us the diagnosis. I was worried that she may be bleeding in her liver causing such new intractable pain. After I reviewed her liver function studies, I also thought she could be having gallbladder symptoms even though she did not have stones on the admission CT. If her elevated liver function studies were from tumor, they should not be going down. And they are going down. Radiologist is worried that they do not have a contrasted CAT scan to let him know if they will be getting into trouble with an angioma. So I ordered a multiphase CT of the abdomen 11/15. There is no hemangioma. No bleeding under the capsule. The liver masses were much better delineated for the radiologist. We agreed that as long as I can get her INR below 2 she could go to biopsy on 11/16. Then I reviewed the radiology literature with 11/16 radiologist. Their guidelines state that the INR needs to be below 1.5. See problem #2. Her pain is better with the morphine CARE DIRECTOR RN pump. I have ordered a 1 mg/h continuous infusion rate. I am allowing her 1 mg every 10 minutes with a max of 8 mg in 4 hours and I ordered a Palliative Care consult. Plan: Continue above CARE DIRECTOR RN pump Palliative care has seen the patient today. She was seen in the late afternoon and they have not had time to dictate their note. They predict that this patient will most likely need to be discharged on long-acting opioids. They will review how much morphine she has had delivered over the last 2 days and calculate an appropriate conversion dose and let me know. (4) Altered mental status resolved Impression: By November 15 she was alert enough to process the information I was telling her and be appropriately grief stricken and fearful about the cancer diagnosis. She was able to tell me what she was feeling, able to describe her pain well. , who was at the bedside yesterday, endorsed that she was the best she has been since being in the hospital. She continues to be fatigued, weak, but is oriented to person place and time. Plan: Most likely her altered mental status was from the dehydration and the pain of liver mets. I have encouraged nursing to get the patient out of bed and in a chair. She is lost a lot of ground. Plan is for her to be discharged home and want her to be able to stand and pivot and walk 1 step (5) Acute kidney injury resolved. Labs were all reviewed. She normally runs a creatinine of 0.8. With her history of 4 days of poor oral intake, she is dehydrated and this caused her RAFAEL. Her BUN/creatinine on admission were 41/2.3. Not only was her lisinopril stopped, she was started on IV fluids and >> 34/1.6>>18/0.9>>13/0.7 today. Plan: Avoid nephrotoxins Continue with IV fluids Follow BMP daily (6) Liver masses Her CT scan then the ultrasound done showed "innumerable" masses in the liver. There is one particularly large mass measuring 6.2 cm in the right posterior lobe. The ED provider was the first 1 to tell the patient and that she probably has cancer. We had planned to get tissue sample for pathology. Conversation was held with radiology on November 14 and we needed to normalize her INR. On November 14 she received vitamin K and FFP. In spite of that, her INR is still over 4 today. Today's radiologist wanted better imaging with contrast and a repeat CT was done. Not only does she have the same liver masses, she appears to have nodules in the paracolic gutter indicating carcinomatosis. Lymphadenopathy. She is still not ready for biopsy because of INR. I am also noting that she has changes of inflammation on her gallbladder. Could you have passed a stone? Could she have primary hepatobiliary cancer that has metastasized. In speaking to radiology I repeated the CT of abdomen and used contrast 11/15, and the repeat CAT scan has been helpful so he does not have to worry about a hemangioma. I also spoke to oncology in the medical ambulatory clinic 11/15. I presented the case to the oncologist. Her hypotension and possible sepsis is definitely concerning. But they feel that if we can get her through this temporary phase of illness, and have a tissue diagnosis, there are therapies that could allow her a decent quality of life in an extended life of a few years. They feel it is worth getting a liver biopsy and moving forward with at least getting a tissue diagnosis. I also spoke to the patient about CODE STATUS on 11/15. She really did understand the possibility that she could have a terminal illness and she was understandably tearful and grief stricken. This is all happening so fast. I discussed what the resuscitative effort would mean with regards to CPR and intubation. She states that she does not want that. While she is willing to go to do treatment, get a biopsy, and see how she does, she feels that a full on resuscitative measures with CPR and intubation would not be what she wants. "What would be the point" is her statement. So CODE STATUS was changed to DO NOT RESUSCITATE. Some of the tumor markers have already come back. Alpha-fetoprotein is 1.8. Normal levels. CA 15-3 is 623. High. CA 19-9 antigen is pending. Ca1 25 antigen is 14 and within normal range. CEA is 1633.5. I started Decadron yesterday. Some oncology literature suggest that pain is relieved by the anti- inflammatory effects of the steroids. Plan: Tumor markers as already discussed above She has a POLST form at the bedside that she would like me to fill out with her. I was not able to do that yesterday. She is asked that her and daughter Katy be the points of contact for the POLST form By November 21, if she is still here, and off of the Levophed, I would request a liver biopsy before discharge (8) Transaminitis The family was all in the room and reported that the patient gets yearly thorough blood tests. These were done in April 2022 and the LFTs were normal then ( I reviewed all labs in this EMR). I questioned her about alcohol use and she hardly uses any. The and other family members concur. In following her liver function studies daily, they are improving. If she truly had LFTs that were elevated because of tumor, the LFTs would not be getting better. Since they are getting better it makes me wonder if she has a transitory process such as cholecystitis or a passed stone giving her the right upper quadrant pain that so severe today. I reiterated to them that her liver function studies could be normal in spite of having tumor in the liver. I really do not think that something was missed in April on the basis of labs. Plan: Follow LFTs daily Avoid hepatotoxins Work-up of the liver mets as described in #6 above (8) DM II The patient takes metformin. The admitted she does not really follow a diabetic diet. Our treatment consist of ACHS fingerstick checks and sliding scale insulin coverage for this. A1c is 7.1%. 11/14 her glucose was 96, 124, 154, 131. 11/15 her glucose was 108, 139. , 112, 139 November 16: 132, 143, 200 Today 163, 240 (I did start her on Decadron yesterday) She is eating 0 to 75% of her food. She says that she appreciates her diet being changed to regular diet on November 15. She really did not like the dysphagia pured diet. Plan: Continue with ACHS fingerstick checks and sliding scale insulin coverage. Advance coverage tomorrow if her glucose is consistently above 200 (9) Chronic pain I asked the patient and why she is on methadone. There is a history of previously needing to be on oxycodone at very high doses which was then transitioned to methadone. Her chronic pain was in her neck and lower back. 11/15 her right upper quadrant pain is so severe that she is requiring doses of morphine IV that are not holding her. It is not her diffuse pain that is bothering her. I stopped the methadone and started her on a CARE DIRECTOR RN pump. Her pain is better controlled with the CARE DIRECTOR RN pump. 11/17: Part of the reason I requested a palliative care consult was discharge transitioning this patient to oral meds to control her pain. Consult will be dictated later today and she will be making recommendations. Plan: CARE DIRECTOR RN pump as noted above (10) Hypothyroidism Her TSH is elevated but free T4 is normal. Plan: Continue with her same home thyroid replacement dose (11) Hx of CVA Patient has had 3 strokes, 2002, 2012 and 2013. 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 She has chronic weakness on one side. She uses walk She is on chronic warfarin since those strokes Plan: Eventually she will need PT and OT evaluations. (12) ALINA Plan: I have reiterated to her family that her home machine needs to be brought in here. Especially in view of the fact of the morphine use.
--- NOTE | 2022-11-17 17:31 | CONSULTATION NOTE ---
Palliative Care Consultation - Referral Referring Provider: Dr. Gabriela Donis Time of Visit: [id number] Referral setting: Hospitalized patient Referral Reason: Pain of neoplastic origin/Met cancer of unknown origin/goals of care - Information Sources Records reviewed: RN notes reviewed, Previous records reviewed History/Review of Systems obtained from: Patient, Family ( Jamin) Exam limitations: Other (patient with poor recall of last few days; engaged and appropriate during meeting; [facility]) - History of Present Illness Brief History of Present Illness: This is a 72-year-old woman who was admitted acutely on 11/13/2022 for significant changes in mental status, worsening abdominal pain, and weakness. Patient had been feeling poorly for about a week week and a half, and had been reluctant to seek assistance. When patient was acutely ill, brought her into the ED. In hindsight, patient has had ongoing fluctuating episodes where she is "not felt well" and these have included nausea, and periods of significant fatigue. She though was quite functional up to 2 weeks ago, able to ambulate short distan daphne in her house, her cane only for balance secondary to neuropathy, able to do some household tasks and manage her ADLs.She has had some weight loss, but perceives this as intentional, and has multiple underlying chronic illnesses, managed by her primary care provider. Patient presented with acute and worsening right upper quadrant pain, she did have a CT scan that shows she has multiple masses to her liver, with largest mass identified in the posterior right hepatic lobe measuring 6.2 cm. She did have elevated liver enzymes on admit, these are improving slowly. Unfortunately they have been waiting for a liver biopsy, with the hopes to identify underlying cancer diagnosis that will drive patient's options moving into the future. She was admitted to ICU, with worsening hypotension, they are weaning her off her Levophed, as well as she is on a morphine OUTBOARD MOTOR TESTER. She was admitted with a leger pratherapeutic INR, have continued to move forward in trying to get this below 1.5 to be able to get the liver biopsy as well as the hypotension under control. Her encephalopathy has improved, as well as her RAFAEL, she is of note also has had 3 strokes, with chronic weakness on left side, for which she uses a cane both for weakness and peripheral neuropathy. Palliative care meeting with patient and for introduction of palliative care services as well as evaluating and recommendations for pain management. Dr. Donis, had met with patient and regarding initial conversation for advance care planning. At this point identified goals are to have the liver biopsy, weigh benefits and burdens of treatment options versus quality of life and quantity of life in the context of their current understanding of patient with stage IV disease. Medical/Surgical History - Past Medical History Cardiovascular: reports: Hypertension Respiratory: reports: None, CPAP use Neuro: CVA, Peripheral neuropathy Endocrine/Autoimmune: reports: Type 2 diabetes, HyPOthyroidism GI: reports: Chronic constipation (often goes every 2-3 days; up to a week at times is norm) : reports: None Psych: reports: None Musculoskeletal: reports: Osteoarthritis, Chronic back pain Derm: reports: None MRSA Hx?: No - Past Surgical History General: reports: Other Ortho: reports: Other /EPIDEMIOLOGIST: reports: Hysterectomy, Other Social History - Living Situation Living arrangement: At home Living Situation: With spouse/s.o. Support System: [place] and her family, there is 2 houses as well as an apartment on the property, she and her live in [facility], her daughter and her family live in the other, and their grandson lives in the apartment. They do have 4 children total, and 10 grandkids. They do have a large and supportive family. The daughters have been here taking turns to sleep and provide support so father can go home. Her sister has arrived as well, they are all appropriately concerned. Patient after her strokes, has never done rehab, she reports she does remember some about a visiting nurse/got exercises at 1 point but only a few visits in the past. They do have some equipment such as a wheelchair, commode, and shower bench. She does have a bed, sleep number, that can raise up. She is very much looking forward to being in it again. Medications/Allergies - Medications Active Medication List: Active Medications Aspirin (Aspirin Ec 325 Mg Tablet) 325 mg PO DAILY PRN PRN Reason: PAIN 1-4 Calcium Citrate (Calcium Citrate 250 Mg Tablet) 500 mg PO DAILY [facility] Last Admin: 11/17/22 08:32 Dose: 500 mg Cholecalciferol (Cholecalciferol 25 Mcg Tablet) 25 mcg PO DAILY [facility] Last Admin: 11/17/22 08:32 Dose: 25 mcg Dexamethasone (Dexamethasone 4 Mg Tablet) 2 mg PO BIDWM [facility] Last Admin: 11/17/22 08:32 Dose: 2 mg Docusate Sodium (Docusate Sodium 250 Mg Capsule) 250 - 500 mg PO DAILY [facility] Last Admin: 11/17/22 12:00 Dose: 250 mg Famotidine (Famotidine 20 Mg Tablet) 20 mg PO BID [facility] Last Admin: 11/17/22 08:33 Dose: 20 mg Sodium Chloride (Normal Saline 0.9%) 1,000 mls @ 125 mls/hr IV .Q8H [facility] Last Admin: 11/17/22 14:32 Dose: 125 mls/hr Norepinephrine Bitartrate (Levophed 8 Mg/250 Ml D5w) 8 mg in 250 mls @ 15 mls/hr IV .[id number] [facility]; Protocol Last Admin: 11/17/22 15:54 Dose: 1 mcg/min, 1.875 mls/hr Cefepime HCl 2 gm/ Sodium (Chloride) 100 mls @ 200 mls/hr IV TID [facility] Last Infusion: 11/17/22 15:31 Dose: Infused Metronidazole (Flagyl 500 Mg/100 Ml) 500 mg in 100 mls @ 100 mls/hr IV TID [facility] Last Infusion: 11/17/22 15:55 Dose: Infused Vancomycin HCl 1.5 gm/ Sodium (Chloride) 500 mls @ 167 mls/hr IV Q24H [facility] Last Infusion: 11/16/22 22:20 Dose: Infused Sodium Chloride (Normal Saline 0.9%) 500 mls @ 20 mls/hr IV Q24H PRN PRN Reason: TKO RATE Last Admin: 11/17/22 06:30 Dose: 20 mls/hr Ibuprofen (Ibuprofen 400 Mg Tablet) 400 mg PO Q4HR PRN PRN Reason: Pain 1 to 4 Last Admin: 11/15/22 20:26 Dose: 400 mg Insulin Human Lispro (Insulin Lispro 300 Unit/3 Ml Pen) 1 - 9 unit SUBQ 0800,1200,1700,2100 [facility]; Protocol Last Admin: 11/17/22 12:00 Dose: 5 unit Levothyroxine Sodium (Levothyroxine 75 Mcg Tablet) 150 mcg PO QDAC [facility] Last Admin: 11/17/22 05:47 Dose: 150 mcg Midodrine (Midodrine 2.5 Mg Tablet) 5 mg PO TID [facility] Last Admin: 11/17/22 14:28 Dose: 5 mg Mineral Oil (Min Oil/Dimethicon/Coconut Oil 92 Gm Tube) 1 applic TOP PRN PRN PRN Reason: Skin Care Last Admin: 11/16/22 21:34 Dose: 1 applic Morphine Sulfate/Sodium Chloride (Morphine Black Top Paver Operator 50 Mg) 50 mg IV OUTBOARD MOTOR TESTER PRN; Leslie col PRN Reason: Severe Pain (Level 7-10) Last Admin: 11/16/22 17:21 Dose: 50 mg Multivitamins/Minerals (Multivitamin W/Minerals Tablet) 1 tab PO DAILYWM [facility] Last Admin: 11/17/22 08:33 Dose: 1 tab Naloxone HCl (Naloxone 0.4 Mg/Ml Vial) 0.4 mg IVP PRN PRN PRN Reason: respiration <10 Nystatin (Nystatin Powder 15 Gm) 1 applic TOP BID [facility] Last Admin: 11/17/22 08:33 Dose: 1 applic Ondansetron HCl (Ondansetron 4 Mg/2 Ml Vial) 4 mg IVP Q4HR PRN PRN Reason: Nausea / Vomiting Last Admin: 11/14/22 11:06 Dose: 4 mg Polyethylene Glycol (Polyethylene Glycol 3350 17 Gm Packet) 17 gm PO DAILY [facility] Last Admin: 11/17/22 08:33 Dose: 17 gm Pregabalin (Pregabalin 100 Mg Capsule) 200 mg PO BID [facility] Last Admin: 11/17/22 08:33 Dose: 200 mg Sodium Chloride (Sodium Chloride Flush 0.9% 10 Ml Syringe) 10 ml IVP PRN PRN PRN Reason: NEEDED PER PROVIDER ORDERS Last Admin: 11/14/22 18:23 Dose: 10 ml Sodium Chloride (Sodium Chloride Flush 0.9% 10 Ml Syringe) 10 ml IVP 0100,0900 ,1700 [facility] Last Admin: 11/17/22 08:33 Dose: 10 ml Sodium Chloride (Sodium Chloride Flush 0.9% 10 Ml Syringe) 20 ml IVP PRN PRN PRN Reason: After Blood Draw Last Admin: 11/17/22 04:56 Dose: 20 ml Tizanidine HCl (Tizanidine 4 Mg Tablet) 8 mg PO QPM [facility] Last Admin: 11/16/22 20:38 Dose: 8 mg Atorvastatin Calcium 40 mg PO DAILY 08/21/20 Furosemide [Lasix] 20 mg PO DAILY 08/21/20 Levothyroxine Sodium [Levothyroxine] 150 mcg PO DAILY 08/21/20 Methadone [Methadone Hcl] 5 mg PO BID 08/21/20 Pregabalin [Lyrica] 150 mg PO BID 08/21/20 Warfarin [Coumadin] 5 mg PO DAILY 08/21/20 amLODIPine [Norvasc] 5 mg PO DAILY 08/21/20 tiZANidine [Zanaflex] 8 mg PO QPM 08/21/20 Metformin HCl [Metformin ER Osmotic] 500 mg PO BID 06/01/21 Aspirin [Aspirin EC] 1 tab PO DAILY PRN 11/14/22 Calcium Citrate/Vitamin D3 [Calcium Cit 315-Vit D3 250 Cpt] 2 tab PO DAILY 11/14/22 Cholecalciferol [Vitamin D3] 1 tab PO DAILY 11/14/22 Famotidine [Pepcid] 1 tab PO HS PRN 11/14/22 Lisinopril [Zestril] 1 tab PO DAILY 11/14/22 Multivitamin with Minerals [Multivitamins with Minerals] 1 tab PO DAILY 11/14/22 Pregabalin 1 cap PO BID 11/14/22 - Allergies Allergies/Adverse Reactions: Allergies Allergy/AdvReac Type Severity Reaction Status Date / Time No Known Drug Allergies Allergy Verified 04/25/22 14:56 Review of Systems - Constitutional Constitutional: reports: Fatigue, Weakness, Poor appetite (has had early satiety for a long period of time), Weight loss (20 pounds) - Ears, Nose & Throat Ears, Nose & Throat: reports: Hearing loss, Dry mouth - Cardiovascular Cardiovascular: reports: Exertional dyspnea - Respiratory Respiratory: reports: SOB with exertion - Gastrointestinal Gastrointestinal: reports: Abdominal pain, Constipation, Bloating, Poor appetite, Early satiety - Musculoskeletal Musculoskeletal: reports: Back pain, Limited range of motion, Muscle weakness, Assistive devices (uses cane at home), Transfer issues - Integumentary Integumentary: reports: Dryness - Neurological Neurological: reports: General weakness, Numbness, Pre-existing deficit, Abnormal gait - Psychiatric Psychiatric: reports: Anxiety - Endocrine Endocrine: reports: Diabetes type 2, Hypothyroidism - Hematologic/Lymphatic Hematologic/Lymph: reports: Anemia - All Other Systems All Other Systems: reports: Other (limited ROS;) Physical Exam - Vital Signs Vital Signs: Vital Signs x48h Temp Pulse Resp BP Pulse Ox O2 Flow Rate 05/11/23 16:01 36.5 C 50 L 8 L 122/81 H 98 4 11/17/22 16:00 13 11/17/22 15:00 36.4 C L 48 L 13 136/76 H 98 4 11/17/22 14:09 52 L 121/62 11/17/22 14:00 36.4 C L 52 L 12 147/131 H 92 4 11/17/22 13:00 36.4 C L 50 L 10 L 137/73 H 99 4 11/17/22 12:00 44 L 12 139/95 H 98 4 11/17/22 11:00 36.2 C L 43 L 8 L 143/72 H 99 4 11/17/22 10:07 15 11/17/22 10:00 36.0 C L 47 L 10 L 126/68 100 4 11/17/22 09:30 12 11/17/22 09:00 36.0 C L 50 L 12 129/71 100 4 11/17/22 08:18 10 L - Physical Exam General Appearance: positive: Mild distress (with pain) Eyes Bilateral: positive: Normal inspection ENT: positive: Dry mucous membranes Neck: positive: Trachea midline Cardiovascular: positive: Regular rate & rhythm Respiratory: positive: No respiratory distress Abdomen: positive: Tenderness (right upper quadrant), Guarding, Distended, Obese Skin: positive: Pallor, Dryness Extremities: positive: No pedal edema Neurologic/Psychiatric: positive: Oriented x3, Depressed mood/affect, Flat affect Palliative Care - POLST Patient has POLST: Yes POLST Status: DNR, Selective Treatment Pain: Pain worsening, Location (right upper quadrant; peripheral neuropathy; lower back pain), Comment (see discussion below) Performance Status: Patient reports was able to transfer the chair today, family is hoping patient will be somewhat more independent. Counseling provided regarding 2 options of rehab on discharge and home health support/rehab. They are much more interested both physically and emotionally and having her return home. - Palliative Care Discussion: Patient does have a POLST , completed with Dr. Donis hospitalist. Has a DNAR and selective treatments. They are still somewhat in "the twilight zone" and trying to identify what direction to go in the future. Her priority and comfort is in her family, and to return home. Risk her reiterates this, does feel like they have enough support to be able to do this transition, but is quite interested in resources that might be available. Did introduce [place] PES, as well as paid caregiving support, will have APPEALS NURSE follow-up with patient and if need to get application going - Other Findings/Comments Additional Discussion: Discussed regarding patient's pain history. Patient has had severe disc disease in neck and lower back, was seen at [facility], on large doses of OxyContin, perceives herself as "addicted". Had been on escalating doses, this was in around 2013 as best she remembers, the physician lost his license. Patient had essentially titrated herself off, they did transition her to methadone, and has been chronically on 5 mg twice daily along with the pregabalin for her peripheral neuropathy, and the tizanidine 4 leg cramps and pain at night, which has been effective.Patient has a high tolerance to pain as well as a high tolerance to opioids, this will proved to be somewhat challenging in the context of managing malignant pain. Looking into the future, patient most likely should be transition to 1 opioid, would recommend transitioning to time-released morphine, inability to better respond to both titrating up and tapering down and real-time. Patient is currently on a OUTBOARD MOTOR TESTER pump, reports she does get relief with bolusing of 1 mg, it appears she is on a continuous 1 mg/h dose as well. Counseling provided regarding pain management in the setting of malignant pain, suspect patient's pain is most likely related to liver capsule stretching, and/or pancreatic in origin in the setting the high CA9-19. It is its mostly located .in her right upper quadrant. Had been started on dexamethasone 2 mg twice daily with some improvement, however but still identifying pain as a significant issue.Of course with increasing her opioid use, patient is at high risk for worsening constipation, patient already has slow and infrequent bowel movements. She will need to be put on a fairly aggressive regimen particularly given her underlying disease process. Results - Lab Results Lab results reviewed: Yes Fish Bones: 11/17/22 04:36 11/17/22 12:18 Lab and Imaging Results: Lab Results x24hrs 11/17/22 11/17/22 11/17/22 Range/Units 12:18 12:18 11:41 WBC (4.8-10.8) x10^3/uL RBC (4.20-5.40) 10^6/uL Hgb (12.0-16.0) g/dL Hct (37.0-47.0) % MCV (81.0-99.0) fL MCH (27.0-31.0) pg MCHC (32.0-36.0) g/dL RDW (12.0-15.0) % Plt Count (130-450) 10^3/uL MPV (7.9-10.8) fL Neut # (Auto) (1.5-6.6) 10^3/uL Lymph # (Auto) (1.5-3.5) 10^3/uL Toombs # (Auto) (0.0-1.0) 10^3/uL Eos # (Auto) (0.0-0.7) 10^3/uL Baso # (Auto) (0.0-0.1) 10^3/uL Absolute Nucleated RBC x10^3/uL Nucleated RBC % /100WBC PT (9.9-12.6) secs INR (0.8-1.2) VBG pH 7.307 L (7.31-7.41) Ionized Calcium 1.11 L (1.15-1.33) mmol/L Potassium 3.5 (3.5-5.0) mmol/L POC Whole Bld Glucose 240 H (70 - 100) mg/dL Phosphorus (2.5-4.6) mg/dL Magnesium 2.0 (1.7-2.8) mg/dL 11/17/22 11/17/22 11/17/22 Range/Units 08:00 04:36 04:36 WBC (4.8-10.8) x10^3/uL RBC (4.20-5.40) 10^6/uL Hgb (12.0-16.0) g/dL Hct (37.0-47.0) % MCV (81.0-99.0) fL MCH (27.0-31.0) pg MCHC (32.0-36.0) g/dL RDW (12.0-15.0) % Plt Count (130-450) 10^3/uL MPV (7.9-10.8) fL Neut # (Auto) (1.5-6.6) 10^3/uL Lymph # (Auto) (1.5-3.5) 10^3/uL Toombs # (Auto) (0.0-1.0) 10^3/uL Eos # (Auto) (0.0-0.7) 10^3/uL Baso # (Auto) (0.0-0.1) 10^3/uL Absolute Nucleated RBC x10^3/uL Nucleated RBC % /100WBC PT (9.9-12.6) secs INR (0.8-1.2) VBG pH 7.310 (7.31-7.41) Ionized Calcium 1.07 L (1.15-1.33) mmol/L Potassium 3.2 L (3.5-5.0) mmol/L POC Whole Bld Glucose 163 H (70 - 100) mg/dL Phosphorus (2.5-4.6) mg/dL Magnesium (1.7-2.8) mg/dL 11/17/22 11/17/22 11/17/22 Range/Units 04:36 04:36 04:36 WBC 9.3 (4.8-10.8) x10^3/uL RBC 3.43 L (4.20-5.40) 10^6/uL Hgb 10.2 L (12.0-16.0) g/dL Hct 33.6 L (37.0-47.0) % MCV 98.0 (81.0-99.0) fL MCH 29.7 (27.0-31.0) pg MCHC 30.4 L (32.0-36.0) g/dL RDW 15.1 H (12.0-15.0) % Plt Count 233 (130-450) 10^3/uL MPV 11.1 H (7.9-10.8) fL Neut # (Auto) 8.0 H (1.5-6.6) 10^3/uL Lymph # (Auto) 0.6 L (1.5-3.5) 10^3/uL Toombs # (Auto) 0.7 (0.0-1.0) 10^3/uL Eos # (Auto) 0.0 (0.0-0.7) 10^3/uL Baso # (Auto) 0.0 (0.0-0.1) 10^3/uL Absolute Nucleated RBC 0.00 x10^3/uL Nucleated RBC % 0.0 /100WBC PT 20.4 H (9.9-12.6) secs INR 1.9 H (0.8-1.2) VBG pH (7.31-7.41) Ionized Calcium (1.15-1.33) mmol/L Potassium (3.5-5.0) mmol/L POC Whole Bld Glucose (70 - 100) mg/dL Phosphorus 2.9 (2.5-4.6) mg/dL Magnesium 1.7 (1.7-2.8) mg/dL 11/16/22 11/16/22 11/16/22 Range/Units 22:45 22:45 22:45 WBC (4.8-10.8) x10^3/uL RBC (4.20-5.40) 10^6/uL Hgb (12.0-16.0) g/dL Hct (37.0-47.0) % MCV (81.0-99.0) fL MCH (27.0-31.0) pg MCHC (32.0-36.0) g/dL RDW (12.0-15.0) % Plt Count (130-450) 10^3/uL MPV (7.9-10.8) fL Neut # (Auto) (1.5-6.6) 10^3/uL Lymph # (Auto) (1.5-3.5) 10^3/uL Toombs # (Auto) (0.0-1.0) 10^3/uL Eos # (Auto) (0.0-0.7) 10^3/uL Baso # (Auto) (0.0-0.1) 10^3/uL Absolute Nucleated RBC x10^3/uL Nucleated RBC % /100WBC PT (9.9-12.6) secs INR (0.8-1.2) VBG pH 7.292 L (7.31-7.41) Ionized Calcium 1.08 L (1.15-1.33) mmol/L Potassium (3.5-5.0) mmol/L POC Whole Bld Glucose (70 - 100) mg/dL Phosphorus 3.3 (2.5-4.6) mg/dL Magnesium 1.6 L (1.7-2.8) mg/dL 11/16/22 11/16/22 11/16/22 Range/Units 20:39 17:35 16:14 WBC (4.8-10.8) x10^3/uL RBC (4.20-5.40) 10^6/uL Hgb (12.0-16.0) g/dL Hct (37.0-47.0) % MCV (81.0-99.0) fL MCH (27.0-31.0) pg MCHC (32.0-36.0) g/dL RDW (12.0-15.0) % Plt Count (130-450) 10^3/uL MPV (7.9-10.8) fL Neut # (Auto) (1.5-6.6) 10^3/uL Lymph # (Auto) (1.5-3.5) 10^3/uL Toombs # (Auto) (0.0-1.0) 10^3/uL Eos # (Auto) (0.0-0.7) 10^3/uL Baso # (Auto) (0.0-0.1) 10^3/uL Absolute Nucleated RBC x10^3/uL Nucleated RBC % /100WBC PT (9.9-12.6) secs INR (0.8-1.2) VBG pH 7.300 L (7.31-7.41) Ionized Calcium 1.06 L (1.15-1.33) mmol/L Potassium (3.5-5.0) mmol/L POC Whole Bld Glucose 200 H 143 H (70 - 100) mg/dL Phosphorus (2.5-4.6) mg/dL Magnesium (1.7-2.8) mg/dL 11/16/22 Range/Units 16:14 WBC (4.8-10.8) x10^3/uL RBC (4.20-5.40) 10^6/uL Hgb (12.0-16.0) g/dL Hct (37.0-47.0) % MCV (81.0-99.0) fL MCH (27.0-31.0) pg MCHC (32.0-36.0) g/dL RDW (12.0-15.0) % Plt Count (130-450) 10^3/uL MPV (7.9-10.8) fL Neut # (Auto) (1.5-6.6) 10^3/uL Lymph # (Auto) (1.5-3.5) 10^3/uL Toombs # (Auto) (0.0-1.0) 10^3/uL Eos # (Auto) (0.0-0.7) 10^3/uL Baso # (Auto) (0.0-0.1) 10^3/uL Absolute Nucleated RBC x10^3/uL Nucleated RBC % /100WBC PT (9.9-12.6) secs INR (0.8-1.2) VBG pH (7.31-7.41) Ionized Calcium (1.15-1.33) mmol/L Potassium (3.5-5.0) mmol/L POC Whole Bld Glucose (70 - 100) mg/dL Phosphorus (2.5-4.6) mg/dL Magnesium 1.7 (1.7-2.8) mg/dL Impression and Recommendations - Palliative Care Impression: This is a 72-year-old woman who presents unexpectedly with cancer of unknown origin with metastatic disease to the liver, awaiting liver biopsy. Patient with acute issues, including RAFAEL, hypotension, encephalopathy, and functional decline are all improving. Patient presents with pain of neoplastic origin and the complexity and setting of chronic pain, most likely given CA 199 suspect pancreatic origin, but does have liver mets with most of her pain right upper quadrant. Palliative care is seeing patient and introduction for palliative care support, pain management, anticipatory guidance, and goals of care. Recommendations/Counseling Done: 1)Pain of neoplastic origin. When feels appropriate, would recommend transitioning to the basal rate equal analgesic of her continuous infusion, which is 24 mg in 24 hours, this equals close to 70-75 morphine oral. Would be appropriate to start her out at MS Contin 30 mg twice daily, and continue with the OUTBOARD MOTOR TESTER as needed, to be able to then respond to her acute and fluctuating pain, for 24 to 48 hours, then transition to oral for breakthrough, may need to increase long-acting at that time as well.Patient does have a history of long- term chronic pain, high pain tolerance, but also tolerant of opioid medications. May need higher doses, but also in the setting of possible pancreatic cancer, and liver pain.Would continue her pregabalin for her peripheral neuropathy, as well as her tizanidine at bedtime, these have been long-term chronic pain medications with no need at this time to discontinue.Counseling provided regarding malignant pain versus chronic pain with patient and , and goal would be of treatment, palliative in nature with hope to decrease pain related to her cancer. 2. 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 Counseling provided regarding local oncologist, oncology team and how they work, goals of treatment in the context of stage IV disease, palliative management with management of disease versus curative. Counseling also provided regarding weighing benefits and burdens of treatment in the context of her current healthcare status, and setting of priorities.Introduced the role of palliative care and providing layer of support alongside oncology, particularly in the role of pain management and focus on quality of life issues and anticipatory guidance. 3. Goals of care. Patient's understanding is she does have cancer, and it is serious and most likely terminal in nature. Both she and her are interested in what might be options for prolonging quantity of life as well as interested in quality of life measures. Counseling provided regarding options and transitioning home, rehab versus home health support. Given the uncertainty of her future, family is a huge priority, they do have good support and she does want to return home to her home setting. 90 minutes with review of records, coordination of care with in patient hospitalist, Family meeting with patient and and myself, counseling regarding pain and symptom management, goals of care, disease trajectory and management of stage IV cancer, and anticipatory guidance for transition planning.We will plan to see in follow-up tomorrow, for further recommendations regarding pain management.
[2022-11-17] MEDS: tiZANidine 4 MG TABLET PO SCH (21:02)
[2022-11-17] MEDS: MIN OIL/DIMETHICON/COCONUT OIL 92 GM TUBE TOP PRN (21:14)
[2022-11-17] MEDS ORDERED: MORPHINE PCA 50 MG IV PRN (23:15)
--- NOTE | 2022-11-17 23:17 | PROVIDER PROGRESS NOTE ---
Corporate Traffic Manager Note - Corporate Traffic Manager Note Corporate Traffic Manager Note: RN paged to report: "Pt has ELECTRIC SWITCH TESTER with basal rate of 1 mg/hr. Has become somnolent with RR of 8 after giving herself 3 mg over about 2 hours. Would like order to stop the basal rate, please." as RN requested, changed basal rate to 0 monitor patient pain and proceed with further adjustment as need Aureliano Renteria DO Internal Medicine [employer] Corporate Traffic Manager
[2022-11-18] MEDS: SODIUM CHLORIDE 0.9% 1,000 ML IV SCH (02:37)
[2022-11-18] MEDS: SODIUM CHLORIDE FLUSH 0.9% 10 ML SYRINGE IVP SCH ×3 (02:37→18:45)
[2022-11-18 05:19] LABS: CALCIUM, IONIZED 1.08 mmol/L (1.15-1.33); VBG PH 7.367 (7.31-7.41)
[2022-11-18 05:20] LABS: BASOPHILS % (AUTO) 0.1 %; HCT - HEMATOCRIT 31.8 % (37.0-47.0); HGB - HEMOGLOBIN 9.7 g/dL (12.0-16.0); LYMPHOCYTES # (AUTO) 0.8 10^3/uL (1.5-3.5); LYMPHOCYTES % (AUTO) 7.5 %; MEAN CORPUSCULAR HEMOGLOBIN 29.8 pg (27.0-31.0); MEAN CORPUSCULAR HGB CONC 30.5 g/dL (32.0-36.0); MEAN CORPUSCULAR VOLUME 97.5 fL (81.0-99.0); MEAN PLATELET VOLUME 11.5 fL (7.9-10.8); MONOCYTES # (AUTO) 0.9 10^3/uL (0.0-1.0); MONOCYTES % (AUTO) 8.7 %; NEUTROPHILS # (AUTO) 8.3 10^3/uL (1.5-6.6); PLT - PLATELET COUNT 192 10^3/uL (130-450); RED BLOOD COUNT 3.26 10^6/uL (4.20-5.40); RED CELL DISTRIBUTION WIDTH 15.2 % (12.0-15.0)
[2022-11-18 05:26] LABS: INR 1.7 (0.8-1.2); PT - PROTHROMBIN TIME 18.8 secs (9.9-12.6)
[2022-11-18 05:33] LABS: CALCIUM 7.5 mg/dL (8.5-10.3); CREATININE 0.6 mg/dL (0.4-1.0); MAGNESIUM 2.1 mg/dL (1.7-2.8); PHOSPHORUS 2.2 mg/dL (2.5-4.6)
[2022-11-18] MEDS: CEFEPIME 2 GM in SODIUM CHLORIDE 0.9% MINIBAG 100 ML IV SCH ×3 (05:50→22:10)
[2022-11-18] MEDS: metroNIDAZOLE 500 MG/100 ML 500 MG/100 ML BAG IV SCH ×3 (05:52→22:16)
[2022-11-18] MEDS: MIDODRINE 2.5 MG TABLET PO SCH ×3 (05:54→18:45)
[2022-11-18] MEDS: LEVOTHYROXINE 75 MCG TABLET PO SCH (06:44)
[2022-11-18] MEDS: NOREPINEPHRINE/D5W 8 MG/250 ML BAG IV SCH (06:51)
[2022-11-18] MEDS: dexAMETHasone 4 MG TABLET PO SCH ×2 (08:26→18:45)
[2022-11-18] MEDS: CALCIUM CARBONATE CHEW 500 MG TABLET PO SCH ×2 (08:26→11:38)
[2022-11-18] MEDS: NEUTRA-PHOS 250 MG TABLET PO SCH ×2 (08:26→11:38)
[2022-11-18] MEDS: INSULIN LISPRO 300 UNIT/3 ML PEN SUBQ SCH ×4 (08:27→21:01)
[2022-11-18] MEDS: FAMOTIDINE 20 MG TABLET PO SCH ×2 (08:28→20:48)
[2022-11-18] MEDS: MULTIVITAMIN W/MINERALS TABLET PO SCH (08:28)
[2022-11-18] MEDS: polyethylene glycoL 3350 17 GM PACKET PO SCH (08:29)
[2022-11-18] MEDS: CHOLECALCIFEROL 25 MCG TABLET PO SCH (08:29)
[2022-11-18] MEDS: PREGABALIN 100 MG CAPSULE PO SCH ×2 (08:29→20:47)
[2022-11-18] MEDS: DOCUSATE SODIUM 250 MG CAPSULE PO SCH (08:29)
[2022-11-18] MEDS: ASPIRIN EC 325 MG TABLET PO PRN (08:30)
[2022-11-18] MEDS: NYSTATIN POWDER 15 GM TOP SCH ×2 (08:31→22:19)
[2022-11-18] MEDS: CALCIUM CITRATE 250 MG TABLET PO SCH (08:34)
--- NOTE | 2022-11-18 09:04 | PROVIDER PROGRESS NOTE ---
Assessment and Plan This is DOL# [ ], HD# [ ] for BERTA REDMAN born via at [birth year] 20:12 to a yo G now P [] at wk EGA. (1) Hypotension Impression: She was transferred to the ICU November 15 for her hypotension. In this unfortunate female, hypotension could be from the disease process in her liver. CT scan shows extensive, multiple, masses in the liver. A left paracolic gutter nodule, and lymphadenopathy. She does not appear to have signs and symptoms of sepsis other than hypotension and no objective source on CT, CXR or UA. There is no pulmonary, GI, or findings other than pericholecystic inflammation on CT done on admission. She is tender in the right upper quadrant. She is not having an DE. She does not have a GI bleed but could be bleeding in her liver due to mets and an elevated INR (but no tachycardia on vitals). She is not intravascularly depleted with dehydration Treatment consisted of Levophed to keep mean arterial pressure at 65. The repeat abdomen pelvis CT done yesterday for the intractable right upper quadrant pain has no evidence of obstruction. She continues to have left paracolic gutter lesion, a liver that is filled with innumerable masses. She has nonspecific pericholecystic fluid and wall thickening. The biliary tree and pancreatic duct are prominent without definite pathologic dilation or obstruction. Possible small splenic cyst. Pathologic appearing lymph nodes. Pelvis has a small amount of free fluid. Quintanilla is in place with an under distended bladder. She had a hysterectomy. Since infection could not be completely ruled out, I started her on broad- spectrum antibiotics with cefepime, vancomycin, and Flagyl. Today is day #3. She did have blood cultures on November 13. Those were positive today with gram- positive cocci. PCR has staph species. Since they became positive 3 days after they were done, I suspect this is contamination. I also ordered blood cultures on November 15. Those blood cultures have had no growth after 24 hours. Levophed continues at 2 mcg. Blood pressure is 136 systolic at times. Urine output is maintained. Plan: Stop empiric antibiotics and monitor for signs and symptoms of infection I Reduced Levophed to 1 mcg and see how she does. I have again encouraged nursing to see if we can get her off the Levophed. I have asked nursing to please get this patient out of bed and into a chair. And I have asked physical therapy to start working with her. 11/18/2022 - Patient is currently off of IV Levophed and is having adequate blood pressure support today (2) Supratherapeutic INR Impression: When the patient was admitted she was admitted with an INR of greater than 10. She takes medication for atrial fibrillation which includes Coumadin. She was taking her medication in spite of not having any p.o. intake for 4 days. Between the liver being replaced by cancer, dehydration, and taking her Coumadin, she was supratherapeutic. She received FFP on admission. On the second day her INR was 4.7 and she received vitamin K. the third day, her INR was 4.3 and she received more vitamin K. We are attempting to get her down to less than 1.5. She needs this for radiology for liver biopsy. On the 4th day, INR was 1.9. Radiology had cancelled her biopsy and has asked that I treat her again for the INR. Family is understandably worried and upset. They really want this biopsy to see what the diagnosis is going to be to them let oncology know what treatment would be. I ordered fresh frozen plasma. But we ended up not using it. Radiology reviewed the chart and felt that since the patient was on Levophed, "hemodynamically unstable", she was not a good candidate for liver biopsy due to the risk of bleeding. As such the biopsy was canceled. Radiology was able to come and speak to the family and explained their thought process to the family. 11/18/22 - -Awaiting INR to be 1.5 per interventional radiology in order to do biopsy (3) RUQ abdominal pain Impression: This unfortunate female has already had imaging studies that tell us that she has multiple, multiple masses to her liver. The presumptive thought is that she has metastatic disease of unknown primary. There is nodularity along the capsule as well as the parenchyma. Gallbladder is unremarkable. No hydronephrosis. This was seen on the admission abdomen/pelvis CT November 13. That was done without contrast. Abdominal ultrasound also shows innumerable hypoe choic mass lesions. A correspondence representative large complex mass in the posterior right hepatic lobe measures 6.2 cm. The intrahepatic ducts appear nondilated. There is dilation of the extrahepatic duct with the common bile duct 1 cm (think primary hepatobiliary w mets or a passed stone). Her total bili was 1.7 on admission. It is 1.1 today. AST was 206 on admission and is 66 today. ALT was 74 on admission and is now 45 today. Alk phos was 311 and is 220 today. Ammonia level is 15.3. 11/15 The radiologist and I discussed the previous CT. And our plans moving forward. Our obvious suspicion is that she has cancer, either hepatobiliary of mets. Or unknown primary with mets. I am hoping for a pathologic piece of tissue to give us the diagnosis. I was worried that she may be bleeding in her liver causing such new intractable pain. After I reviewed her liver function studies, I also thought she could be having gallbladder symptoms even though she did not have stones on the admission CT. If her elevated liver function studies were from tumor, they should not be going down. And they are going down. Radiologist is worried that they do not have a contrasted CAT scan to let him know if they will be getting into trouble with an angioma. So I ordered a multiphase CT of the abdomen 11/15. There is no hemangioma. No bleeding under the capsule. The liver masses were much better delineated for the radiologist. We agreed that as long as I can get her INR below 2 she could go to biopsy on 11/16. Then I reviewed the radiology literature with 11/16 radiologist. Their guidelines state that the INR needs to be below 1.5. See problem #2. Her pain is better with the morphine [employer]IATE pump. I have ordered a 1 mg/h continuous infusion rate. I am allowing her 1 mg every 10 minutes with a max of 8 mg in 4 hours and I ordered a Palliative Care consult. Plan: Continue above [employer] pump Palliative care has seen the patient today. She was seen in the late afternoon and they have not had time to dictate their note. They predict that this patient will most likely need to be discharged on long-acting opioids. They will review how much morphine she has had delivered over the last 2 days and calculate an appropriate conversion dose and let me know. 11/18/22 - Appreciate palliative care consult. Will change pain medication regimen per palliative care recommendation.Anticipate IR obtained liver biopsy. (4) Altered mental status resolved Impression: By November 15 she was alert enough to process the information I was telling her and be appropriately grief stricken and fearful about the cancer diagnosis. She was able to tell me what she was feeling, able to describe her pain well. , who was at the bedside yesterday, endorsed that she was the best she has been since being in the hospital. She continues to be fatigued, weak, but is oriented to person place and time. Plan: Most likely her altered mental status was from the dehydration and the pain of liver mets. I have encouraged nursing to get the patient out of bed and in a chair. She is lost a lot of ground. Plan is for her to be discharged home and want her to be able to stand and pivot and walk 1 step (5) Acute kidney injury resolved. Labs were all reviewed. She normally runs a creatinine of 0.8. With her history of 4 days of poor oral intake, she is dehydrated and this caused her RAFAEL. Her BUN/creatinine on admission were 41/2.3. Not only was her lisinopril stopped, she was started on IV fluids and >> 34/1.6>>18/0.9>>13/0.7 today. Plan: Avoid nephrotoxins Continue with IV fluids Follow BMP daily (6) Liver masses Her CT scan then the ultrasound done showed "innumerable" masses in the liver. There is one particularly large mass measuring 6.2 cm in the right posterior lobe. The ED provider was the first 1 to tell the patient and that she probably has cancer. We had planned to get tissue sample for pathology. Conversation was held with radiology on November 14 and we needed to normalize her INR. On November 14 she received vitamin K and FFP. In spite of that, her INR is still over 4 today. Today's radiologist wanted better imaging with contrast and a repeat CT was done. Not only does she have the same liver masses, she appears to have nodules in the paracolic gutter indicating carcinomatosis. Lymphadenopathy. She is still not ready for biopsy because of INR. I am also noting that she has changes of inflammation on her gallbladder. Could you have passed a stone? Could she have primary hepatobiliary cancer that has metastasized. In speaking to radiology I repeated the CT of abdomen and used contrast 11/15, and the repeat CAT scan has been helpful so he does not have to worry about a hemangioma. I also spoke to oncology in the medical ambulatory clinic 11/15. I presented the case to the oncologist. Her hypotension and possible sepsis is definitely concerning. But they feel that if we can get her through this temporary phase of illness, and have a tissue diagnosis, there are therapies that could allow her a decent quality of life in an extended life of a few years. They feel it is worth getting a liver biopsy and moving forward with at least getting a tissue diagnosis. I also spoke to the patient about CODE STATUS on 11/15. She really did understand the possibility that she could have a terminal illness and she was understandably tearful and grief stricken. This is all happening so fast. I discussed what the resuscitative effort would mean with regards to CPR and intubation. She states that she does not want that. While she is willing to go to do treatment, get a biopsy, and see how she does, she feels that a full on resuscitative measures with CPR and intubation would not be what she wants. "What would be the point" is her statement. So CODE STATUS was changed to DO NOT RESUSCITATE. Some of the tumor markers have already come back. Alpha-fetoprotein is 1.8. Normal levels. CA 15-3 is 623. High. CA 19-9 antigen is pending. Ca1 25 antigen is 14 and within normal range. CEA is 1633.5. I started Decadron yesterday. Some oncology literature suggest that pain is relieved by the anti- inflammatory effects of the steroids. Plan: Tumor markers as already discussed above She has a POLST form at the bedside that she would like me to fill out with her. I was not able to do that yesterday. She is asked that her and daughter Katy be the points of contact for the POLST form By November 21, if she is still here, and off of the Levophed, I would request a liver biopsy before d 11/18/22-anticipate liver biopsy per IR (8) Transaminitis The family was all in the room and reported that the patient gets yearly thoroug h blood tests. These were done in April 2022 and the LFTs were normal then ( I reviewed all labs in this EMR). I questioned her about alcohol use and she hardly uses any. The and other family members concur. In following her liver function studies daily, they are improving. If she truly had LFTs that were elevated because of tumor, the LFTs would not be getting better. Since they are getting better it makes me wonder if she has a transitory process such as cholecystitis or a passed stone giving her the right upper quadrant pain that so severe today. I reiterated to them that her liver function studies could be normal in spite of having tumor in the liver. I really do not think that something was missed in April on the basis of labs. Plan: Follow LFTs daily Avoid hepatotoxins Work-up of the liver mets as described in #6 above (8) DM II The patient takes metformin. The admitted she does not really follow a diabetic diet. Our treatment consist of ACHS fingerstick checks and sliding scale insulin coverage for this. A1c is 7.1%. 11/14 her glucose was 96, 124, 154, 131. 11/15 her glucose was 108, 139. , 112, 139 November 16: 132, 143, 200 Today 163, 240 (I did start her on Decadron yesterday) She is eating 0 to 75% of her food. She says that she appreciates her diet being changed to regular diet on November 15. She really did not like the dysphagia pured diet. Plan: Continue with ACHS fingerstick checks and sliding scale insulin coverage. Advance coverage tomorrow if her glucose is consistently above 200 (9) Chronic pain I asked the patient and why she is on methadone. There is a history of previously needing to be on oxycodone at very high doses which was then transitioned to methadone. Her chronic pain was in her neck and lower back. 11/15 her right upper quadrant pain is so severe that she is requiring doses of morphine IV that are not holding her. It is not her diffuse pain that is bothering her. I stopped the methadone and started her on a [employer]ATE pump. Her pain is better controlled with the [employer]ATE pump. 11/17: Part of the reason I requested a palliative care consult was discharge transitioning this patient to oral meds to control her pain. Consult will be dictated later today and she will be making recommendations. Plan: [employer]ATE pump as noted above 11/18/22-patient will be transferred off of [employer]ATE and administer pain meds as recommended by palliative care (10) Hypothyroidism Her TSH is elevated but free T4 is normal. Plan: Continue with her same home thyroid replacement dose (11) Hx of CVA Patient has had 3 strokes, 2002, 2012 and 2013. 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 She has chronic weakness on one side. She uses walk She is on chronic warfarin since those strokes Plan: Eventually she will need PT and OT evaluations. (12) ALINA Plan: I have reiterated to her family that her home machine needs to be brought in here. Especially in view of the fact of the morphine use. Subjective: Patient's mental status is slightly improved and is slightly doing better with pain control Objective: Vital signs and nursing notes reviewed Head: Normocephalic atraumatic General: Ill-appearing Mouth: No lesions Neck: Supple Chest: Clear to auscultation Cor: Regular rate and rhythm S1-S2 Abdomen: Soft tenderness in the right upper quadrant no rebound no guarding Extremities: Trace bilateral pedal edema Skin: Slightly decreased turgor Psych: Mood and affect are appropriate but slightly blunted affect Neuro: Alert and oriented x3, motor strength intact bilaterally
[2022-11-18] MEDS ORDERED: MORPHINE ER 15 MG TABLET PO SCH (11:00)
--- NOTE | 2022-11-18 13:22 | CONSULTATION NOTE ---
Palliative Care Follow Up - Referral Referring Provider: Gabriela Donis MD Time of Visit: 12:30-13:15 Referral setting: Hospitalized patient Referral Reason: Pain of neoplastic origin/unknown primary met to liver - Information Sources Records reviewed: Previous records reviewed History/Review of Systems obtained from: Patient Exam limitations: No limitations - History of Present Illness Update Brief HPI Update: Please see note 11/17 for HPI This is a 72-year-old woman who has metastatic disease to her liver, up unknown primary. Unfortunately her INR is only down to 1.7 today, awaiting ability to have a liver biopsy. 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 Patient was put on as needed dosing only, unfortunately she also was receiving her tizanidine last night, most likely was multifactorial as far as her sedation. She also has not slept for several days with good sleep. I am seeing her she is awake and alert conversant, complaining of right upper quadrant pain that now is radiating down into her right lower abdomen area, tenderness with palpation. She rates her pain a 5 out of 10, has just received her first dose of MS Contin 30 mg, but does have 7.5 mg of short acting morphine available. She is pending PT evaluation for movement. Patient's equal analgesic of her methadone at baseline, is 40 mg of morphine equivalent in 24 hours, of note will need to continue to monitor, explained to patient most likely not going to feel the effects of the time-released morphine for at least 6 to 8 hours, will make arrangements for patient to get short acting at this time secondary to her complaints of discomfort. Family remain quite anxious appropriately regarding awaiting outcome of liver biopsy for further treatment path, patient is still quite weak, she reports no appetite, but is taking Ensure. She has multiple family members in the room, is in good spirits, does appear to be engaged and not confused at this time. Social History - Living Situation Living arrangement: At home Living Situation: With spouse/s.o. Support System: [place] and her family, there is 2 houses as well as an apartment on the property, she and her live in [facility], her daughter and her family live in the other, and their grandson lives in the apartment. They do have 4 children total, and 10 grandkids. They do have a large and supportive family. The daughters have been here taking turns to sleep and provide support so father can go home. Her sister has arrived as well, they are all appropriately concerned. Patient after her strokes, has never done rehab, she reports she does remember some about a visiting nurse/got exercises at 1 point but only a few visits in the past. They do have some equipment such as a wheelchair, commode, and shower bench. She does have a bed, sleep number, that can raise up. She is very much looking forward to being in it again. Medications/Allergies - Medications Active Medication List: Active Medications Aspirin (Aspirin Ec 325 Mg Tablet) 325 mg PO DAILY PRN PRN Reason: PAIN 1-4 Last Admin: 11/18/22 08:30 Dose: 325 mg Calcium Citrate (Calcium Citrate 250 Mg Tablet) 500 mg PO DAILY [facility] Last Admin: 11/18/22 08:34 Dose: 500 mg Cholecalciferol (Cholecalciferol 25 Mcg Tablet) 25 mcg PO DAILY [facility] Last Admin: 11/18/22 08:29 Dose: 25 mcg Dexamethasone (Dexamethasone 4 Mg Tablet) 2 mg PO BIDWM [facility] Last Admin: 11/18/22 08:26 Dose: 2 mg Docusate Sodium (Docusate Sodium 250 Mg Capsule) 250 - 500 mg PO DAILY [facility] Last Admin: 11/18/22 08:29 Dose: 250 mg Famotidine (Famotidine 20 Mg Tablet) 20 mg PO BID [facility] Last Admin: 11/18/22 08:28 Dose: 20 mg Norepinephrine Bitartrate (Levophed 8 Mg/250 Ml D5w) 8 mg in 250 mls @ 15 mls/hr IV .[id number] [facility]; Protocol Last Admin: 11/18/22 06:51 Dose: Not Given Cefepime HCl 2 gm/ Sodium (Chloride) 100 mls @ 200 mls/hr IV TID [facility] Last Admin: 11/18/22 05:50 Dose: 100 mls/hr Metronidazole (Flagyl 500 Mg/100 Ml) 500 mg in 100 mls @ 100 mls/hr IV TID [facility] Last Admin: 11/18/22 05:52 Dose: 100 mls/hr Ibuprofen (Ibuprofen 400 Mg Tablet) 400 mg PO Q4HR PRN PRN Reason: Pain 1 to 4 Last Admin: 11/15/22 20:26 Dose: 400 mg Insulin Human Lispro (Insulin Lispro 300 Unit/3 Ml Pen) 1 - 9 unit SUBQ 0800,1200,1700,2100 [facility]; Protocol Last Admin: 11/18/22 08:27 Dose: 1 unit Levothyroxine Sodium (Levothyroxine 75 Mcg Tablet) 150 mcg PO QDAC [facility] Last Admin: 11/18/22 06:44 Dose: 150 mcg Midodrine (Midodrine 2.5 Mg Tablet) 5 mg PO TIDWM [facility] Mineral Oil (Min Oil/Dimethicon/Coconut Oil 92 Gm Tube) 1 applic TOP PRN PRN PRN Reason: Skin Care Last Admin: 11/17/22 21:14 Dose: 1 applic Morphine Sulfate (Morphine Er 15 Mg Tablet) 30 mg PO BID [facility] Last Admin: 11/18/22 11:39 Dose: 30 mg Morphine Sulfate (Morphine Ir 15 Mg Tablet) 7.5 mg PO Q6HR PRN PRN Reason: BREAKTHROUGH Pain (Level 1-10) Multivitamins/Minerals (Multivitamin W/Minerals Tablet) 1 tab PO DAILYWM [facility] Last Admin: 11/18/22 08:28 Dose: 1 tab Naloxone HCl (Naloxone 0.4 Mg/Ml Vial) 0.4 mg IVP PRN PRN PRN Reason: respiration <10 Nystatin (Nystatin Powder 15 Gm) 1 applic TOP BID [facility] Last Admin: 11/18/22 08:31 Dose: 1 applic Ondansetron HCl (Ondansetron 4 Mg/2 Ml Vial) 4 mg IVP Q4HR PRN PRN Reason: Nausea / Vomiting Last Admin: 11/14/22 11:06 Dose: 4 mg Polyethylene Glycol (Polyethylene Glycol 3350 17 Gm Packet) 17 gm PO DAILY [facility] Last Admin: 11/18/22 08:29 Dose: 17 gm Pregabalin (Pregabalin 100 Mg Capsule) 200 mg PO BID [facility] Last Admin: 11/18/22 08:29 Dose: 200 mg Sodium Chloride (Sodium Chloride Flush 0.9% 10 Ml Syringe) 10 ml IVP PRN PRN PRN Reason: NEEDED PER PROVIDER ORDERS Last Admin: 11/14/22 18:23 Dose: 10 ml Sodium Chloride (Sodium Chloride Flush 0.9% 10 Ml Syringe) 10 ml IVP 0100,0900,1700 [facility] Last Admin: 11/18/22 08:30 Dose: 10 ml Sodium Chloride (Sodium Chloride Flush 0.9% 10 Ml Syringe) 20 ml IVP PRN PRN PRN Reason: After Blood Draw Last Admin: 11/17/22 04:56 Dose: 20 ml Tizanidine HCl (Tizanidine 4 Mg Tablet) 8 mg PO QPM [facility] Last Admin: 11/17/22 21:02 Dose: 8 mg Atorvastatin Calcium 40 mg PO DAILY 08/21/20 Furosemide [Lasix] 20 mg PO DAILY 08/21/20 Levothyroxine Sodium [Levothyroxine] 150 mcg PO DAILY 08/21/20 Methadone [Methadone Hcl] 5 mg PO BID 08/21/20 Pregabalin [Lyrica] 150 mg PO BID 08/21/20 Warfarin [Coumadin] 5 mg PO DAILY 08/21/20 amLODIPine [Norvasc] 5 mg PO DAILY 08/21/20 tiZANidine [Zanaflex] 8 mg PO QPM 08/21/20 Metformin HCl [Metformin ER Osmotic] 500 mg PO BID 06/01/21 Aspirin [Aspirin EC] 1 tab PO DAILY PRN 11/14/22 Calcium Citrate/Vitamin D3 [Calcium Cit 315-Vit D3 250 Cpt] 2 tab PO DAILY 11/14/22 Cholecalciferol [Vitamin D3] 1 tab PO DAILY 11/14/22 Famotidine [Pepcid] 1 tab PO HS PRN 11/14/22 Lisinopril [Zestril] 1 tab PO DAILY 11/14/22 Multivitamin with Minerals [Multivitamins with Minerals] 1 tab PO DAILY 11/14/22 Pregabalin 1 cap PO BID 11/14/22 - Allergies Allergies/Adverse Reactions: Allergies Allergy/AdvReac Type Severity Reaction Status Date / Time No Known Drug Allergies Allergy Verified 04/25/22 14:56 Review of Systems - Constitutional Constitutional: reports: Fatigue, Weakness, Poor appetite (has had early satiety for a long period of time), Weight loss (20 pounds) - Ears, Nose & Throat Ears, Nose & Throat: reports: Hearing loss, Dry mouth - Cardiovascular Cardiovascular: reports: Exertional dyspnea - Respiratory Respiratory: reports: SOB with exertion - Gastrointestinal Gastrointestinal: reports: Abdominal pain, Constipation, Bloating, Poor appetite, Early satiety - Musculoskeletal Musculoskeletal: reports: Back pain, Limited range of motion, Muscle weakness, Assistive devices (uses cane at home), Transfer issues - Integumentary Integumentary: reports: Dryness - Neurological Neurological: reports: General weakness, Numbness, Pre-existing deficit, Abnormal gait - Psychiatric Psychiatric: reports: Anxiety - Endocrine Endocrine: reports: Diabetes type 2, Hypothyroidism - Hematologic/Lymphatic Hematologic/Lymph: reports: Anemia - All Other Systems All Other Systems: reports: Other (limited ROS;) Physical Exam - Vital Signs Vital Signs: Vital Signs x48h Temp Pulse Resp BP Pulse Ox O2 Flow Rate 11/18/22 12:00 37.0 C 55 L 16 129/71 96 2 11/18/22 11:00 43 L 9 L 113/54 L 92 2 11/18/22 10:19 2 11/18/22 10:00 36.8 C 45 L 10 L 116/57 L 97 2 11/18/22 09:00 36.7 C 58 L 12 126/74 95 2 11/18/22 08:00 36.6 C 46 L 14 121/56 L 96 2 11/18/22 07:00 53 L 14 104/60 97 2 11/18/22 06:00 46 L 14 109/64 95 2 - Physical Exam General Appearance: positive: Mild distress (with pain) Eyes Bilateral: positive: Normal inspection ENT: positive: Dry mucous membranes Neck: positive: Trachea midline Cardiovascular: positive: Regular rate & rhythm Respiratory: positive: No respiratory distress Abdomen: positive: Tenderness (right upper quadrant), Guarding, Distended, Obese Skin: positive: Pallor, Dryness Extremities: positive: No pedal edema Neurologic/Psychiatric: positive: Oriented x3, Depressed mood/affect, Flat affect Palliative Care - POLST Patient has POLST: Yes POLST Status: DNR, Selective Treatment Pain: Severity (5/10), Pattern (Persistent; perceives worsening) Results - Lab Results Lab results reviewed: Yes Fish Bones: 11/18/22 04:40 11/18/22 04:40 Lab and Imaging Results: Lab Results x24hrs 11/18/22 11/18/22 11/18/22 Range/Units 12:39 08:03 04:40 WBC 10.0 (4.8-10.8) x10^3/uL RBC 3.26 L (4.20-5.40) 10^6/uL Hgb 9.7 L (12.0-16.0) g/dL Hct 31.8 L (37.0-47.0) % MCV 97.5 (81.0-99.0) fL MCH 29.8 (27.0-31.0) pg MCHC 30.5 L (32.0-36.0) g/dL RDW 15.2 H (12.0-15.0) % Plt Count 192 (130-450) 10^3/uL MPV 11.5 H (7.9-10.8) fL Neut # (Auto) 8.3 H (1.5-6.6) 10^3/uL Lymph # (Auto) 0.8 L (1.5-3.5) 10^3/uL [place] # (Auto) 0.9 (0.0-1.0) 10^3/uL Eos # (Auto) 0.0 (0.0-0.7) 10^3/uL Baso # (Auto) 0.0 (0.0-0.1) 10^3/uL Absolute Nucleated RBC 0.00 x10^3/uL Nucleated RBC % 0.0 /100WBC PT (9.9-12.6) secs INR (0.8-1.2) VBG pH (7.31-7.41) Ionized Calcium (1.15-1.33) mmol/L Sodium (135-145) mmol/L Potassium (3.5-5.0) mmol/L Chloride (101-111) mmol/L Carbon Dioxide (21-32) mmol/L Anion Gap (6-13) BUN (6-20) mg/dL Creatinine (0.4-1.0) mg/dL Estimated GFR (MDRD) (>89) Glucose (70-100) mg/dL POC Whole Bld Glucose 156 H 184 H (70 - 100) mg/dL Calcium (8.5-10.3) mg/dL Phosphorus (2.5-4.6) mg/dL Magnesium (1.7-2.8) mg/dL 11/18/22 11/18/22 11/18/22 Range/Units 04:40 04:40 04:40 WBC (4.8-10.8) x10^3/uL RBC (4.20-5.40) 10^6/uL Hgb (12.0-16.0) g/dL Hct (37.0-47.0) % MCV (81.0-99.0) fL MCH (27.0-31.0) pg MCHC (32.0-36.0) g/dL RDW (12.0-15.0) % Plt Count (130-450) 10^3/uL MPV (7.9-10.8) fL Neut # (Auto) (1.5-6.6) 10^3/uL Lymph # (Auto) (1.5-3.5) 10^3/uL [place] # (Auto) (0.0-1.0) 10^3/uL Eos # (Auto) (0.0-0.7) 10^3/uL Baso # (Auto) (0.0-0.1) 10^3/uL Absolute Nucleated RBC x10^3/uL Nucleated RBC % /100WBC PT 18.8 H (9.9-12.6) secs INR 1.7 H (0.8-1.2) VBG pH 7.367 (7.31-7.41) Ionized Calcium 1.08 L (1.15-1.33) mmol/L Sodium 140 (135-145) mmol/L Potassium 4.0 (3.5-5.0) mmol/L Chloride 102 (101-111) mmol/L Carbon Dioxide 28 (21-32) mmol/L Anion Gap 10.0 (6-13) BUN 12 (6-20) mg/dL Creatinine 0.6 (0.4-1.0) mg/dL Estimated GFR (MDRD) 99 (>89) Glucose 157 H (70-100) mg/dL POC Whole Bld Glucose (70 - 100) mg/dL Calcium 7.5 L (8.5-10.3) mg/dL Phosphorus 2.2 L (2.5-4.6) mg/dL Magnesium 2.1 (1.7-2.8) mg/dL 11/17/22 11/17/22 11/17/22 Range/Units 20:33 19:06 17:03 WBC (4.8-10.8) x10^3/uL RBC (4.20-5.40) 10^6/uL Hgb (12.0-16.0) g/dL Hct (37.0-47.0) % MCV (81.0-99.0) fL MCH (27.0-31.0) pg MCHC (32.0-36.0) g/dL RDW (12.0-15.0) % Plt Count (130-450) 10^3/uL MPV (7.9-10.8) fL Neut # (Auto) (1.5-6.6) 10^3/uL Lymph # (Auto) (1.5-3.5) 10^3/uL [place] # (Auto) (0.0-1.0) 10^3/uL Eos # (Auto) (0.0-0.7) 10^3/uL Baso # (Auto) (0.0-0.1) 10^3/uL Absolute Nucleated RBC x10^3/uL Nucleated RBC % /100WBC PT (9.9-12.6) secs INR (0.8-1.2) VBG pH (7.31-7.41) Ionized Calcium (1.15-1.33) mmol/L Sodium (135-145) mmol/L Potassium 4.0 (3.5-5.0) mmol/L Chloride (101-111) mmol/L Carbon Dioxide (21-32) mmol/L Anion Gap (6-13) BUN (6-20) mg/dL Creatinine (0.4-1.0) mg/dL Estimated GFR (MDRD) (>89) Glucose (70-100) mg/dL POC Whole Bld Glucose 197 H 230 H (70 - 100) mg/dL Calcium (8.5-10.3) mg/dL Phosphorus (2.5-4.6) mg/dL Magnesium (1.7-2.8) mg/dL Impression and Recommendations - Palliative Care Impression: This is a 72-year-old woman who presents unexpectedly with cancer of unknown origin with metastatic disease to the liver, still pending liver biopsy. Patient is improving off of her acute issues, and moving towards stabilization. Still is quite weak, working with PT/OT, patient presents with pain of neoplastic origin and the complexity in setting of chronic pain. Palliative care seeing patient for introduction for palliative care support, pain management anticipatory guidance and goals of care. Recommendations/Counseling Done: 1. Pain of neoplastic origin. Patient currently off her methadone based dosing which is 5 mg twice daily, morphine equivalent of 40 mg. Patient did not stay on sustained MS basal rate, but was fairly comfortable on 1 mg/h, which would have been a's 70 mg morphine equivalent. At this point she has been started on MS Contin 30 mg twice daily, will need continued monitoring, most likely this is underdosing but given accommodating for cross tolerance appropriate currently. Would continue to follow her as needed breakthrough dosing, and titrate in 48 hours based on patient's use for as needed morphine. 2. Cancer of unknown origin metastatic to liver, stage IV. Patient still awaiting liver biopsy, hopefully as he can have it on Monday. Call to primary care office to facilitate getting urgent oncology referral for [facility] clinic, their preference is to be treated locally if possible. 3. Goals of care. They are still interested in bringing her home, would transition her home with home physical therapy and Occupational Therapy, and nursing follow-up for monitoring for pain management and constipation. They do not have a preference of agencies, first available. Coordination of care with i npatient hospitalist today regarding plan of care. Requested outpatient referral for palliative care as well. We will follow-up with patient on Monday for final recommendations if not discharged. 45 minutes in review of chart, counseling regarding pain and symptom management and goals of care, coordination of care with primary care office and inpatient.
[2022-11-18] MEDS: MORPHINE IR 15 MG TABLET PO PRN ×2 (13:47→21:01)
[2022-11-18] MEDS: tiZANidine 4 MG TABLET PO SCH (20:47)
[2022-11-18] MEDS: MORPHINE SULFATE ER 30 MG TABLET PO SCH (20:52)
[2022-11-18] MEDS: MIN OIL/DIMETHICON/COCONUT OIL 92 GM TUBE TOP PRN (22:19)
[2022-11-19] MEDS: MORPHINE IR 15 MG TABLET PO PRN ×2 (03:29→16:16)
[2022-11-19] MEDS: SODIUM CHLORIDE FLUSH 0.9% 10 ML SYRINGE IVP SCH ×3 (03:31→16:48)
[2022-11-19 05:21] LABS: BASOPHILS % (AUTO) 0.2 %; HGB - HEMOGLOBIN 10.1 g/dL (12.0-16.0); LYMPHOCYTES # (AUTO) 0.9 10^3/uL (1.5-3.5); LYMPHOCYTES % (AUTO) 8.4 %; MEAN CORPUSCULAR HEMOGLOBIN 29.8 pg (27.0-31.0); MEAN CORPUSCULAR HGB CONC 30.6 g/dL (32.0-36.0); MEAN CORPUSCULAR VOLUME 97.3 fL (81.0-99.0); MEAN PLATELET VOLUME 11.2 fL (7.9-10.8); MONOCYTES # (AUTO) 1.2 10^3/uL (0.0-1.0); MONOCYTES % (AUTO) 10.8 %; NEUTROPHILS # (AUTO) 8.6 10^3/uL (1.5-6.6); NRBC ABSOLUTE COUNT (AUTO) 0.02 x10^3/uL; NUCLEATED RED BLOOD CELLS AUTO 0.2 /100WBC; PLT - PLATELET COUNT 189 10^3/uL (130-450); RED BLOOD COUNT 3.39 10^6/uL (4.20-5.40); RED CELL DISTRIBUTION WIDTH 15.7 % (12.0-15.0); WHITE BLOOD COUNT 10.8 x10^3/uL (4.8-10.8)
[2022-11-19 05:29] LABS: INR 1.8 (0.8-1.2); PT - PROTHROMBIN TIME 19.7 secs (9.9-12.6)
[2022-11-19 05:32] LABS: CALCIUM 8.1 mg/dL (8.5-10.3); CREATININE 0.6 mg/dL (0.4-1.0); POTASSIUM 3.9 mmol/L (3.5-5.0)
[2022-11-19] MEDS: CEFEPIME 2 GM in SODIUM CHLORIDE 0.9% MINIBAG 100 ML IV SCH (06:07)
[2022-11-19] MEDS: metroNIDAZOLE 500 MG/100 ML 500 MG/100 ML BAG IV SCH (06:07)
[2022-11-19] MEDS: MIN OIL/DIMETHICON/COCONUT OIL 92 GM TUBE TOP PRN (06:14)
[2022-11-19] MEDS: LEVOTHYROXINE 75 MCG TABLET PO SCH (06:43)
[2022-11-19] MEDS: NOREPINEPHRINE/D5W 8 MG/250 ML BAG IV SCH (07:54)
[2022-11-19] MEDS: dexAMETHasone 4 MG TABLET PO SCH ×2 (08:49→16:47)
[2022-11-19] MEDS: MIDODRINE 2.5 MG TABLET PO SCH ×3 (08:50→16:48)
[2022-11-19] MEDS: INSULIN LISPRO 300 UNIT/3 ML PEN SUBQ SCH ×4 (08:50→21:04)
[2022-11-19] MEDS: DOCUSATE SODIUM 250 MG CAPSULE PO SCH (08:51)
[2022-11-19] MEDS: MULTIVITAMIN W/MINERALS TABLET PO SCH (08:51)
[2022-11-19] MEDS: CALCIUM CITRATE 250 MG TABLET PO SCH (08:51)
[2022-11-19] MEDS: CHOLECALCIFEROL 25 MCG TABLET PO SCH (08:51)
[2022-11-19] MEDS: MORPHINE SULFATE ER 30 MG TABLET PO SCH ×2 (08:52→21:03)
[2022-11-19] MEDS: NYSTATIN POWDER 15 GM TOP SCH ×2 (08:52→21:08)
[2022-11-19] MEDS: polyethylene glycoL 3350 17 GM PACKET PO SCH (08:52)
[2022-11-19] MEDS: FAMOTIDINE 20 MG TABLET PO SCH ×2 (08:52→21:04)
[2022-11-19] MEDS: PREGABALIN 100 MG CAPSULE PO SCH ×2 (08:53→21:03)
[2022-11-19] MEDS ORDERED: FUROSEMIDE 20 MG/2 ML VIAL IVP ONE (11:00)
[2022-11-19] MEDS ORDERED: CHERRY SYRUP 10 ML UDC PO ONE (11:00)
[2022-11-19] MEDS ORDERED: PHYTONADIONE 10 MG/ML AMP PO ONE (11:00)
[2022-11-19] MEDS: ONDANSETRON 4 MG/2 ML VIAL IVP PRN ×2 (11:16→21:13)
[2022-11-19] MEDS: ASPIRIN EC 325 MG TABLET PO PRN (14:39)
[2022-11-19] MEDS: tiZANidine 4 MG TABLET PO SCH (21:04)
[2022-11-20] MEDS: SODIUM CHLORIDE FLUSH 0.9% 10 ML SYRINGE IVP PRN (04:47)
[2022-11-20] MEDS: SODIUM CHLORIDE FLUSH 0.9% 10 ML SYRINGE IVP SCH ×3 (04:47→16:56)
[2022-11-20] MEDS: MORPHINE IR 15 MG TABLET PO PRN ×2 (04:58→17:57)
[2022-11-20 05:10] LABS: BASOPHILS % (AUTO) 0.2 %; EOSINOPHILS % (AUTO) 0.2 %; HCT - HEMATOCRIT 33.6 % (37.0-47.0); HGB - HEMOGLOBIN 10.5 g/dL (12.0-16.0); LYMPHOCYTES % (AUTO) 12.7 %; MEAN CORPUSCULAR HEMOGLOBIN 30.2 pg (27.0-31.0); MEAN CORPUSCULAR HGB CONC 31.3 g/dL (32.0-36.0); MEAN CORPUSCULAR VOLUME 96.6 fL (81.0-99.0); MEAN PLATELET VOLUME 11.6 fL (7.9-10.8); MONOCYTES % (AUTO) 12.8 %; NEUTROPHILS % (AUTO) 69.8 %; PLT - PLATELET COUNT 178 10^3/uL (130-450); RED BLOOD COUNT 3.48 10^6/uL (4.20-5.40); RED CELL DISTRIBUTION WIDTH 16.1 % (12.0-15.0)
[2022-11-20 05:14] LABS: CALCIUM 8.1 mg/dL (8.5-10.3); CREATININE 0.7 mg/dL (0.4-1.0); POTASSIUM 3.8 mmol/L (3.5-5.0); SLIDE REVIEW? Indicated
[2022-11-20 05:21] LABS: INR 1.7 (0.8-1.2); PT - PROTHROMBIN TIME 18.8 secs (9.9-12.6)
[2022-11-20 05:48] LABS: ABNORMAL LYMPHS % (MANUAL) 0 %
[2022-11-20 05:51] LABS: BAND NEUTROPHILS % (MANUAL) 1 %; LYMPHOCYTES # (MANUAL) 0.8 10^3/uL (1.5-3.5); LYMPHOCYTES % (MANUAL) 7 %; METAMYELOCYTES % (MANUAL) 2 %; MONOCYTES # (MANUAL) 1.7 10^3/uL (0.0-1.0); NEUTROPHILS # (MANUAL) 9.2 10^3/uL (1.5-6.6)
[2022-11-20 05:52] LABS: DIFFERENTIAL COMMENT MANUAL DIFFERENTIAL; PLATELET ESTIMATE, MANUAL NORMAL (130-450,000) (NORMAL); PLATELET MORPHOLOGY NORMAL APPEARANCE (NORMAL); WBC MORPHOLOGY (MULTIPLE) NORMAL APPEARANCE (NORMAL)
[2022-11-20] MEDS: LEVOTHYROXINE 75 MCG TABLET PO SCH (05:55)
[2022-11-20] MEDS: MIN OIL/DIMETHICON/COCONUT OIL 92 GM TUBE TOP PRN (06:07)
[2022-11-20] MEDS ORDERED: PHYTONADIONE 10 MG/ML AMP PO ONE (07:35)
[2022-11-20] MEDS ORDERED: CHERRY SYRUP 10 ML UDC PO ONE (07:35)
[2022-11-20] MEDS: CALCIUM CITRATE 250 MG TABLET PO SCH (08:32)
[2022-11-20] MEDS: FAMOTIDINE 20 MG TABLET PO SCH ×2 (08:32→21:10)
[2022-11-20] MEDS: MULTIVITAMIN W/MINERALS TABLET PO SCH (08:33)
[2022-11-20] MEDS: MIDODRINE 2.5 MG TABLET PO SCH ×3 (08:34→16:55)
[2022-11-20] MEDS: dexAMETHasone 4 MG TABLET PO SCH ×2 (08:35→16:56)
[2022-11-20] MEDS: PREGABALIN 100 MG CAPSULE PO SCH ×2 (08:36→21:10)
[2022-11-20] MEDS: CHOLECALCIFEROL 25 MCG TABLET PO SCH (08:36)
[2022-11-20] MEDS: DOCUSATE SODIUM 250 MG CAPSULE PO SCH (08:36)
[2022-11-20] MEDS: polyethylene glycoL 3350 17 GM PACKET PO SCH (08:36)
[2022-11-20] MEDS: INSULIN LISPRO 300 UNIT/3 ML PEN SUBQ SCH ×4 (08:41→21:11)
[2022-11-20] MEDS: MORPHINE SULFATE ER 30 MG TABLET PO SCH ×2 (08:56→21:10)
[2022-11-20] MEDS: NYSTATIN POWDER 15 GM TOP SCH ×2 (08:56→21:14)
[2022-11-20] MEDS: ONDANSETRON 4 MG/2 ML VIAL IVP PRN (10:18)
--- NOTE | 2022-11-20 13:02 | PROVIDER PROGRESS NOTE ---
Progress Note Progress Note Assessment and Plan This is DOL# [ ], HD# [ ] for BERTA REDMAN born via at [birth year] 20:12 to a yo G now P [] at wk EGA. (1) Hypotension Impression: She was transferred to the ICU November 15 for her hypotension. In this unfortunate female, hypotension could be from the disease process in her liver. CT scan shows extensive, multiple, masses in the liver. A left paracolic gutter nodule, and lymphadenopathy. She does not appear to have signs and symptoms of sepsis other than hypotension and no objective source on CT, CXR or UA. There is no pulmonary, GI, or findings other than pericholecystic inflammation on CT done on admission. She is tender in the right upper quadrant. She is not having an CT. She does not have a GI bleed but could be bleeding in her liver due to mets and an elevated INR (but no tachycardia on vitals). She is not intravascularly depleted with dehydration Treatment consisted of Levophed to keep mean arterial pressure at 65. The repeat abdomen pelvis CT done yesterday for the intractable right upper quadrant pain has no evidence of obstruction. She continues to have left paracolic gutter lesion, a liver that is filled with innumerable masses. She has nonspecific pericholecystic fluid and wall thickening. The biliary tree and pancreatic duct are prominent without definite pathologic dilation or obstruction. Possible small splenic cyst. Pathologic appearing lymph nodes. Pelvis has a small amount of free fluid. Quintanilla is in place with an under distended bladder. She had a hysterectomy. Since infection could not be completely ruled out, I started her on broad- spectrum antibiotics with cefepime, vancomycin, and Flagyl. Today is day #3. She did have blood cultures on November 13. Those were positive today with gram- positive cocci. PCR has staph species. Since they became positive 3 days after they were done, I suspect this is contamination. I also ordered blood cultures on November 15. Those blood cultures have had no growth after 24 hours. Levophed continues at 2 mcg. Blood pressure is 136 systolic at times. Urine output is maintained. Plan: Stop empiric antibiotics and monitor for signs and symptoms of infection I Reduced Levophed to 1 mcg and see how she does. I have again encouraged nursing to see if we can get her off the Levophed. I have asked nursing to please get this patient out of bed and into a chair. And I have asked physical therapy to start working with her. 11/18/2022 - Patient is currently off of IV Levophed and is having adequate blood pressure support today (2) Supratherapeutic INR Impression: When the patient was admitted she was admitted with an INR of greater than 10. She takes medication for atrial fibrillation which includes Coumadin. She was taking her medication in spite of not having any p.o. intake for 4 days. Between the liver being replaced by cancer, dehydration, and taking her Coumadin, she was supratherapeutic. She received FFP on admission. On the second day her INR was 4.7 and she received vitamin K. the third day, her INR was 4.3 and she received more vitamin K. We are attempting to get her down to less than 1.5. She needs this for radiology for liver biopsy. On the 4th day, INR was 1.9. Radiology had cancelled her biopsy and has asked that I treat her again for the INR. Family is understandably worried and upset. They really want this biopsy to see what the diagnosis is going to be to them let oncology know what treatment would be. I ordered fresh frozen plasma. But we ended up not using it. Radiology reviewed the chart and felt that since the patient was on Levophed, "hemodynamically unstable", she was not a good candidate for liver biopsy due to the risk of bleeding. As such the biopsy was canceled. Radiology was able to come and speak to the family and explained their thought process to the family. 11/18/22 - -Awaiting INR to be 1.5 per interventional radiology in order to do biopsy (3) RUQ abdominal pain Impression: This unfortunate female has already had imaging studies that tell us that she has multiple, multiple masses to her liver. The presumptive thought is that she has metastatic disease of unknown primary. There is nodularity along the capsule as well as the parenchyma. Gallbladder is unremarkable. No hydronephrosis. This was seen on the admission abdomen/pelvis CT November 13. That was done without contrast. Abdominal ultrasound also shows innumerable hypoechoic mass lesions. A quality assurance representative large complex mass in the posterior right hepatic lobe measures 6.2 cm. The intrahepatic ducts appear nondilated. There is dilation of the extrahepatic duct with the common bile duct 1 cm (think primary hepatobiliary w mets or a passed stone). Her total bili was 1.7 on admission. It is 1.1 today. AST was 206 on admission and is 66 today. ALT was 74 on admission and is now 45 today. Alk phos was 311 and is 220 today. Ammonia level is 15.3. 11/15 The radiologist and I discussed the previous CT. And our plans moving forward. Our obvious suspicion is that she has cancer, either hepatobiliary of mets. Or unknown primary with mets. I am hoping for a pathologic piece of tissue to give us the diagnosis. I was worried that she may be bleeding in her liver causing such new intractable pain. After I reviewed her liver function studies, I also thought she could be having gallbladder symptoms even though she did not have stones on the admission CT. If her elevated liver function studies were from tumor, they should not be going down. And they are going down. Radiologist is worried that they do not have a contrasted CAT scan to let him know if they will be getting into trouble with an angioma. So I ordered a multiphase CT of the abdomen 11/15. There is no hemangioma. No bleeding under the capsule. The liver masses were much better delineated for the radiologist. We agreed that as long as I can get her INR below 2 she could go to biopsy on 11/16. Then I reviewed the radiology literature with 11/16 radiologist. Their guidelines state that the INR needs to be below 1.5. See problem #2. Her pain is better with the morphine BUSINESS DEVELOPMENT RECRUITER pump. I have ordered a 1 mg/h continuous infusion rate. I am allowing her 1 mg every 10 minutes with a max of 8 mg in 4 hours and I ordered a Palliative Care consult. Plan: Continue above BUSINESS DEVELOPMENT RECRUITER pump Palliative care has seen the patient today. She was seen in the late afternoon and they have not had time to dictate their note. They predict that this patient will most likely need to be discharged on long-acting opioids. They will review how much morphine she has had delivered over the last 2 days and calculate an appropriate conversion dose and let me know. 11/18/22 - Appreciate palliative care consult. Will change pain medication regimen per palliative care recommendation.Anticipate IR obtained liver biopsy. (4) Altered mental status resolved Impression: By November 15 she was alert enough to process the information I was telling her and be appropriately grief stricken and fearful about the cancer diagnosis. She was able to tell me what she was feeling, able to describe her pain well. , who was at the bedside yesterday, endorsed that she was the best she has been since being in the hospital. She continues to be fatigued, weak, but is oriented to person place and time. Plan: Most likely her altered mental status was from the dehydration and the pain of liver mets. I have encouraged nursing to get the patient out of bed and in a chair. She is lost a lot of ground. Plan is for her to be discharged home and want her to be able to stand and pivot and walk 1 step (5) Acute kidney injury resolved. Labs were all reviewed. She normally runs a creatinine of 0.8. With her history of 4 days of poor oral intake, she is dehydrated and this caused her RAFAEL. Her BUN/creatinine on admission were 41/2.3. Not only was her lisinopril stopped, she was started on IV fluids and >> 34/1.6>>18/0.9>>13/0.7 today. Plan: Avoid nephrotoxins Continue with IV fluids Follow BMP daily (6) Liver masses Her CT scan then the ultrasound done showed "innumerable" masses in the liver. There is one particularly large mass measuring 6.2 cm in the right posterior lobe. The ED provider was the first 1 to tell the patient and that she probably has cancer. We had planned to get tissue sample for pathology. Conversation was held with radiology on November 14 and we needed to normalize her INR. On November 14 she received vitamin K and FFP. In spite of that, her INR is still over 4 today. Today's radiologist wanted better imaging with contrast and a repeat CT was done. Not only does she have the same liver masses, she appears to have nodules in the paracolic gutter indicating carcinomatosis. Lymphadenopathy. She is still not ready for biopsy because of INR. I am also noting that she has changes of inflammation on her gallbladder. Could you have passed a stone? Could she have primary hepatobiliary cancer that has metastasized. In speaking to radiology I repeated the CT of abdomen and used contrast 11/15, and the repeat CAT scan has been helpful so he does not have to worry about a hemangioma. I also spoke to oncology in the medical ambulatory clinic 11/15. I presented the case to the oncologist. Her hypotension and possible sepsis is definitely concerning. But they feel that if we can get her through this temporary phase of illness, and have a tissue diagnosis, there are therapies that could allow her a decent quality of life in an extended life of a few years. They feel it is worth getting a liver biopsy and moving forward with at least getting a tissue diagnosis. I also spoke to the patient about CODE STATUS on 11/15. She really did understand the possibility that she could have a terminal illness and she was understandably tearful and grief stricken. This is all happening so fast. I discussed what the resuscitative effort would mean with regards to CPR and intubation. She states that she does not want that. While she is willing to go to do treatment, get a biopsy, and see how she does, she feels that a full on resuscitative measures with CPR and intubation would not be what she wants. "What would be the point" is her statement. So CODE STATUS was changed to DO NOT RESUSCITATE. Some of the tumor markers have already come back. Alpha-fetoprotein is 1.8. Normal levels. CA 15-3 is 623. High. CA 19-9 antigen is pending. Ca1 25 antigen is 14 and within normal range. CEA is 1633.5. I started Decadron yesterday. Some oncology literature suggest that pain is relieved by the anti- inflammatory effects of the steroids. Plan: Tumor markers as already discussed above She has a POLST form at the bedside that she would like me to fill out with her. I was not able to do that yesterday. She is asked that her and daughter Katy be the points of contact for the POLST form By November 21, if she is still here, and off of the Levophed, I would request a liver biopsy before d 11/18/22-anticipate liver biopsy per IR 11/20/22- stable. Await IR biopsy of liver. ? tomorrow.INR=1.7 today and given Vit K 10 mg (8) Transaminitis The family was all in the room and reported that the patient gets yearly thorough blood tests. These were done in April 2022 and the LFTs were normal then ( I reviewed all labs in this EMR). I questioned her about alcohol use and she hardly uses any. The and other family members concur. In following her liver function studies daily, they are improving. If she truly had LFTs that were elevated because of tumor, the LFTs would not be getting better. Since they are getting better it makes me wonder if she has a transitory process such as cholecystitis or a passed stone giving her the right upper quadrant pain that so severe today. I reiterated to them that her liver function studies could be normal in spite of having tumor in the liver. I really do not think that something was missed in April on the basis of labs. Plan: Follow LFTs daily Avoid hepatotoxins Work-up of the liver mets as described in #6 above (8) DM II The patient takes metformin. The admitted she does not really follow a diabetic diet. Our treatment consist of ACHS fingerstick checks and sliding scale insulin coverage for this. A1c is 7.1%. 11/14 her glucose was 96, 124, 154, 131. 11/15 her glucose was 108, 139. , 112, 139 November 16: 132, 143, 200 Today 163, 240 (I did start her on Decadron yesterday) She is eating 0 to 75% of her food. She says that she appreciates her diet being changed to regular diet on November 15. She really did not like the dysphagia pured diet. Plan: Continue with ACHS fingerstick checks and sliding scale insulin coverage. Advance coverage tomorrow if her glucose is consistently above 200 (9) Chronic pain I asked the patient and why she is on methadone. There is a history of previously needing to be on oxycodone at very high doses which was then transitioned to methadone. Her chronic pain was in her neck and lower back. 11/15 her right upper quadrant pain is so severe that she is requiring doses of morphine IV that are not holding her. It is not her diffuse pain that is bothering her. I stopped the methadone and started her on a BUSINESS DEVELOPMENT RECRUITER pump. Her pain is better controlled with the BUSINESS DEVELOPMENT RECRUITER pump. 11/17: Part of the reason I requested a palliative care consult was discharge transitioning this patient to oral meds to control her pain. Consult will be dictated later today and she will be making recommendations. Plan: BUSINESS DEVELOPMENT RECRUITER pump as noted above 11/18/22-patient will be transferred off of BUSINESS DEVELOPMENT RECRUITER and administer pain meds as recommended by palliative care (10) Hypothyroidism Her TSH is elevated but free T4 is normal. Plan: Continue with her same home thyroid replacement dose (11) Hx of CVA Patient has had 3 strokes, 2002, 2012 and 2013. 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 She has chronic weakness on one side. She uses walk She is on chronic warfarin since those strokes Plan: Eventually she will need PT and OT evaluations. (12) ALINA Plan: I have reiterated to her family that her home machine needs to be brought in here. Especially in view of the fact of the morphine use. Subjective: Patient's mental status is slightly improved and is slightly doing better with pain control Objective: Vital signs and nursing notes reviewed Head: Normocephalic atraumatic General: Ill-appearing Mouth: No lesions Neck: Supple Chest: Clear to auscultation Cor: Regular rate and rhythm S1-S2 Abdomen: Soft tenderness in the right upper quadrant no rebound no guarding Extremities: Trace bilateral pedal edema Skin: Slightly decreased turgor Psych: Mood and affect are appropriate but slightly blunted affect Neuro: Alert and oriented x3, motor strength intact bilaterally
[2022-11-20] MEDS: tiZANidine 4 MG TABLET PO SCH (21:09)
[2022-11-21] MEDS: SODIUM CHLORIDE FLUSH 0.9% 10 ML SYRINGE IVP SCH ×3 (02:44→17:22)
[2022-11-21] MEDS: MORPHINE IR 15 MG TABLET PO PRN ×2 (03:53→16:40)
[2022-11-21 05:01] LABS: BASOPHILS % (AUTO) 0.3 %; EOSINOPHILS # (AUTO) 0.1 10^3/uL (0.0-0.7); EOSINOPHILS % (AUTO) 0.5 %; HCT - HEMATOCRIT 35.1 % (37.0-47.0); HGB - HEMOGLOBIN 10.6 g/dL (12.0-16.0); LYMPHOCYTES # (AUTO) 1.5 10^3/uL (1.5-3.5); LYMPHOCYTES % (AUTO) 11.1 %; MEAN CORPUSCULAR HEMOGLOBIN 29.7 pg (27.0-31.0); MEAN CORPUSCULAR HGB CONC 30.2 g/dL (32.0-36.0); MEAN CORPUSCULAR VOLUME 98.3 fL (81.0-99.0); MEAN PLATELET VOLUME 11.5 fL (7.9-10.8); MONOCYTES # (AUTO) 1.4 10^3/uL (0.0-1.0); MONOCYTES % (AUTO) 10.8 %; NEUTROPHILS # (AUTO) 9.7 10^3/uL (1.5-6.6); NEUTROPHILS % (AUTO) 73.8 %; NRBC ABSOLUTE COUNT (AUTO) 0.07 x10^3/uL; NUCLEATED RED BLOOD CELLS AUTO 0.5 /100WBC; PLT - PLATELET COUNT 135 10^3/uL (130-450); RED BLOOD COUNT 3.57 10^6/uL (4.20-5.40); RED CELL DISTRIBUTION WIDTH 16.5 % (12.0-15.0); WHITE BLOOD COUNT 13.1 x10^3/uL (4.8-10.8)
[2022-11-21 05:11] LABS: CALCIUM 8.2 mg/dL (8.5-10.3); CREATININE 0.7 mg/dL (0.4-1.0); POTASSIUM 3.9 mmol/L (3.5-5.0)
[2022-11-21] MEDS: LEVOTHYROXINE 75 MCG TABLET PO SCH (05:36)
[2022-11-21] MEDS: MORPHINE SULFATE ER 30 MG TABLET PO SCH ×2 (09:21→21:11)
[2022-11-21] MEDS: dexAMETHasone 4 MG TABLET PO SCH ×2 (09:21→17:22)
[2022-11-21] MEDS: FAMOTIDINE 20 MG TABLET PO SCH ×2 (09:21→21:12)
[2022-11-21] MEDS: CALCIUM CITRATE 250 MG TABLET PO SCH (09:21)
[2022-11-21] MEDS: polyethylene glycoL 3350 17 GM PACKET PO SCH (09:22)
[2022-11-21] MEDS: MIDODRINE 2.5 MG TABLET PO SCH ×3 (09:22→17:22)
[2022-11-21] MEDS: PREGABALIN 100 MG CAPSULE PO SCH ×2 (09:22→21:13)
[2022-11-21] MEDS: DOCUSATE SODIUM 250 MG CAPSULE PO SCH (09:22)
[2022-11-21] MEDS: CHOLECALCIFEROL 25 MCG TABLET PO SCH (09:22)
[2022-11-21] MEDS: INSULIN LISPRO 300 UNIT/3 ML PEN SUBQ SCH ×4 (09:22→21:13)
[2022-11-21] MEDS: NYSTATIN POWDER 15 GM TOP SCH ×2 (09:25→21:20)
[2022-11-21] MEDS: MULTIVITAMIN W/MINERALS TABLET PO SCH (09:53)
[2022-11-21] MEDS: ONDANSETRON 4 MG/2 ML VIAL IVP PRN (11:07)
[2022-11-21] MEDS: SODIUM CHLORIDE FLUSH 0.9% 10 ML SYRINGE IVP PRN (11:08)
[2022-11-21 11:16] LABS: INR 1.4 (0.8-1.2); PT - PROTHROMBIN TIME 15.1 secs (9.9-12.6)
--- NOTE | 2022-11-21 13:34 | PROVIDER PROGRESS NOTE ---
Progress Note Assessment and Plan This is DOL# [ ], HD# [ ] for BERTA REDMAN born via at [birth year] 20:12 to a yo G now P [] at wk EGA. (1) Hypotension Impression: She was transferred to the ICU November 15 for her hypotension. In this unfortunate female, hypotension could be from the disease process in her liver. CT scan shows extensive, multiple, masses in the liver. A left paracolic gutter nodule, and lymphadenopathy. She does not appear to have signs and symptoms of sepsis other than hypotension and no objective source on CT, CXR or UA. There is no pulmonary, GI, or findings other than pericholecystic inflammation on CT done on admission. She is tender in the right upper quadrant. She is not having an CO. She does not have a GI bleed but could be bleeding in her liver due to mets and an elevated INR (but no tachycardia on vitals). She is not intravascularly depleted with dehydration Treatment consisted of Levophed to keep mean arterial pressure at 65. The repeat abdomen pelvis CT done yesterday for the intractable right upper quadrant pain has no evidence of obstruction. She continues to have left paracolic gutter lesion, a liver that is filled with innumerable masses. She has nonspecific pericholecystic fluid and wall thickening. The biliary tree and pancreatic duct are prominent without definite pathologic dilation or obstruction. Possible small splenic cyst. Pathologic appearing lymph nodes. Pelvis has a small amount of free fluid. Quintanilla is in place with an under distended bladder. She had a hysterectomy. Since infection could not be completely ruled out, I started her on broad- spectrum antibiotics with cefepime, vancomycin, and Flagyl. Today is day #3. She did have blood cultures on November 13. Those were positive today with gram- positive cocci. PCR has staph species. Since they became positive 3 days after they were done, I suspect this is contamination. I also ordered blood cultures on November 15. Those blood cultures have had no growth after 24 hours. Levophed continues at 2 mcg. Blood pressure is 136 systolic at times. Urine output is maintained. Plan: Stop empiric antibiotics and monitor for signs and symptoms of infection I Reduced Levophed to 1 mcg and see how she does. I have again encouraged nursing to see if we can get her off the Levophed. I have asked nursing to please get this patient out of bed and into a chair. And I have asked physical therapy to start working with her. 11/18/2022 - Patient is currently off of IV Levophed and is having adequate blood pressure support today (2) Supratherapeutic INR Impression: When the patient was admitted she was admitted with an INR of greater than 10. She takes medication for atrial fibrillation which includes Coumadin. She was taking her medication in spite of not having any p.o. intake for 4 days. Between the liver being replaced by cancer, dehydration, and taking her Coumadin, she was supratherapeutic. She received FFP on admission. On the second day her INR was 4.7 and she received vitamin K. the third day, her INR was 4.3 and she received more vitamin K. We are attempting to get her down to less than 1.5. She needs this for radiology for liver biopsy. On the 4th day, INR was 1.9. Radiology had cancelled her biopsy and has asked that I treat her again for the INR. Family is understandably worried and upset. They really want this biopsy to see what the diagnosis is going to be to them let oncology know what treatment would be. I ordered fresh frozen plasma. But we ended up not using it. Radiology reviewed the chart and felt that since the patient was on Levophed, "hemodynamically unstable", she was not a good candidate for liver biopsy due to the risk of bleeding. As such the biopsy was canceled. Radiology was able to come and speak to the family and explained their thought process to the family. 11/18/22 - -Awaiting INR to be 1.5 per interventional radiology in order to do biopsy (3) RUQ abdominal pain Impression: This unfortunate female has already had imaging studies that tell us that she has multiple, multiple masses to her liver. The presumptive thought is that she has metastatic disease of unknown primary. There is nodularity along the capsule as well as the parenchyma. Gallbladder is unremarkable. No hydronephrosis. This was seen on the admission abdomen/pelvis CT November 13. That was done without contrast. Abdominal ultrasound also shows innumerable hypoechoic mass lesions. A admitting representative large complex mass in the posterior right hepatic lobe measures 6.2 cm. The intrahepatic ducts appear nondilated. There is dilation of the extrahepatic duct with the common bile duct 1 cm (think primary hepatobiliary w mets or a passed stone). Her total bili was 1.7 on admission. It is 1.1 today. AST was 206 on admission and is 66 today. ALT was 74 on admission and is now 45 today. Alk phos was 311 and is 220 today. Ammonia level is 15.3. 11/15 The radiologist and I discussed the previous CT. And our plans moving forward. Our obvious suspicion is that she has cancer, either hepatobiliary of mets. Or unknown primary with mets. I am hoping for a pathologic piece of tissue to give us the diagnosis. I was worried that she may be bleeding in her liver causing such new intractable pain. After I reviewed her liver function studies, I also thought she could be having gallbladder symptoms even though she did not have stones on the admission CT. If her elevated liver function studies were from tumor, they should not be going down. And they are going down. Radiologist is worried that they do not have a contrasted CAT scan to let him know if they will be getting into trouble with an angioma. So I ordered a multiphase CT of the abdomen 11/15. There is no hemangioma. No bleeding under the capsule. The liver masses were much better delineated for the radiologist. We agreed that as long as I can get her INR below 2 she could go to biopsy on 11/16. Then I reviewed the radiology literature with 11/16 radiologist. Their guidelines state that the INR needs to be below 1.5. See problem #2. Her pain is better with the morphine FOILING MACHINE ADJUSTER pump. I have ordered a 1 mg/h continuous infusion rate. I am allowing her 1 mg every 10 minutes with a max of 8 mg in 4 hours and I ordered a Palliative Care consult. Plan: Continue above FOILING MACHINE ADJUSTER pump Palliative care has seen the patient today. She was seen in the late afternoon and they have not had time to dictate their note. They predict that this patient will most likely need to be discharged on long-acting opioids. They will review how much morphine she has had delivered over the last 2 days and calculate an appropriate conversion dose and let me know. 11/18/22 - Appreciate palliative care consult. Will change pain medication regimen per palliative care recommendation.Anticipate IR obtained liver biopsy. (4) Altered mental status resolved Impression: By November 15 she was alert enough to process the information I was telling her and be appropriately grief stricken and fearful about the cancer diagnosis. She was able to tell me what she was feeling, able to describe her pain well. , who was at the bedside yesterday, endorsed that she was the best she has been since being in the hospital. She continues to be fatigued, weak, but is oriented to person place and time. Plan: Most likely her altered mental status was from the dehydration and the pain of liver mets. I have encouraged nursing to get the patient out of bed and in a chair. She is lost a lot of ground. Plan is for her to be discharged home and want her to be able to stand and pivot and walk 1 step. 11/21patient has ordered home health OT PT nurse and bath aide consult (5) Acute kidney injury resolved. Labs were all reviewed. She normally runs a creatinine of 0.8. With her history of 4 days of poor oral intake, she is dehydrated and this caused her RAFAEL. Her BUN/creatinine on admission were 41/2.3. Not only was her lisinopril stopped, she was started on IV fluids and >> 34/1.6>>18/0.9>>13/0.7 today. Plan: Avoid nephrotoxins Continue with IV fluids Follow BMP daily (6) Liver masses Her CT scan then the ultrasound done showed "innumerable" masses in the liver. There is one particularly large mass measuring 6.2 cm in the right posterior lobe. The ED provider was the first 1 to tell the patient and that she probably has cancer. We had planned to get tissue sample for pathology. Conversation was held with radiology on November 14 and we needed to normalize her INR. On November 14 she received vitamin K and FFP. In spite of that, her INR is still over 4 today. Today's radiologist wanted better imaging with contrast and a repeat CT was done. Not only does she have the same liver masses, she appears to have nodules in the paracolic gutter indicating carcinomatosis. Lymphadenopathy. She is still not ready for biopsy because of INR. I am also noting that she has changes of inflammation on her gallbladder. Could you have passed a stone? Could she have primary hepatobiliary cancer that has metastasized. In speaking to radiology I repeated the CT of abdomen and used contrast 11/15, and the repeat CAT scan has been helpful so he does not have to worry about a hemangioma. I also spoke to oncology in the medical ambulatory clinic 11/15. I presented the case to the oncologist. Her hypotension and possible sepsis is definitely concerning. But they feel that if we can get her through this temporary phase of illness, and have a tissue diagnosis, there are therapies that could allow her a decent quality of life in an extended life of a few years. They feel it is worth getting a liver biopsy and moving forward with at least getting a tis vandana diagnosis. I also spoke to the patient about CODE STATUS on 11/15. She really did understand the possibility that she could have a terminal illness and she was understandably tearful and grief stricken. This is all happening so fast. I discussed what the resuscitative effort would mean with regards to CPR and intubation. She states that she does not want that. While she is willing to go to do treatment, get a biopsy, and see how she does, she feels that a full on resuscitative measures with CPR and intubation would not be what she wants. "What would be the point" is her statement. So CODE STATUS was changed to DO NOT RESUSCITATE. Some of the tumor markers have already come back. Alpha-fetoprotein is 1.8. Normal levels. CA 15-3 is 623. High. CA 19-9 antigen is pending. Ca1 25 antigen is 14 and within normal range. CEA is 1633.5. I started Decadron yesterday. Some oncology literature suggest that pain is relieved by the anti- inflammatory effects of the steroids. Plan: Tumor markers as already discussed above She has a POLST form at the bedside that she would like me to fill out with her. I was not able to do that yesterday. She is asked that her and daughter Katy be the points of contact for the POLST form By November 21, if she is still here, and off of the Levophed, I would request a liver biopsy before d 11/18/22-anticipate liver biopsy per IR 11/20/22- stable. Await IR biopsy of liver. ? tomorrow.INR=1.7 today and given Vit K 10 mg 11/21/22- Patient was supposed to have liver ultrasound biopsy today and is awaiting this. Unfortunately she was served lunch and will need to check with radiology regarding further plans. INR was 1.4 this a.m. (8) Transaminitis The family was all in the room and reported that the patient gets yearly thorough blood tests. These were done in April 2022 and the LFTs were normal then ( I reviewed all labs in this EMR). I questioned her about alcohol use and she hardly uses any. The and other family members concur. In following her liver function studies daily, they are improving. If she truly had LFTs that were elevated because of tumor, the LFTs would not be getting better. Since they are getting better it makes me wonder if she has a transitory process such as cholecystitis or a passed stone giving her the right upper quadrant pain that so severe today. I reiterated to them that her liver function studies could be normal in spite of having tumor in the liver. I really do not think that something was missed in April on the basis of labs. Plan: Follow LFTs daily Avoid hepatotoxins Work-up of the liver mets as described in #6 above (8) DM II The patient takes metformin. The admitted she does not really follow a diabetic diet. Our treatment consist of ACHS fingerstick checks and sliding scale insulin coverage for this. A1c is 7.1%. 11/14 her glucose was 96, 124, 154, 131. 11/15 her glucose was 108, 139. , 112, 139 November 16: 132, 143, 200 Today 163, 240 (I did start her on Decadron yesterday) She is eating 0 to 75% of her food. She says that she appreciates her diet being changed to regular diet on November 15. She really did not like the dysphagia pured diet. Plan: Continue with ACHS fingerstick checks and sliding scale insulin coverage. Advance coverage tomorrow if her glucose is consistently above 200 (9) Chronic pain I asked the patient and why she is on methadone. There is a history of previously needing to be on oxycodone at very high doses which was then transitioned to methadone. Her chronic pain was in her neck and lower back. 11/15 her right upper quadrant pain is so severe that she is requiring doses of morphine IV that are not holding her. It is not her diffuse pain that is bothering her. I stopped the methadone and started her on a FOILING MACHINE ADJUSTER pump. Her pain is better controlled with the FOILING MACHINE ADJUSTER pump. 11/17: Part of the reason I requested a palliative care consult was discharge transitioning this patient to oral meds to control her pain. Consult will be dictated later today and she will be making recommendations. Plan: FOILING MACHINE ADJUSTER pump as noted above 11/18/22-patient will be transferred off of FOILING MACHINE ADJUSTER and administer pain meds as recommended by palliative care (10) Hypothyroidism Her TSH is elevated but free T4 is normal. Plan: Continue with her same home thyroid replacement dose (11) Hx of CVA Patient has had 3 strokes, 2002, 2012 and 2013. 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 She has chronic weakness on one side. She uses walk She is on chronic warfarin since those strokes Plan: Eventually she will need PT and OT evaluations. (12) ALINA Plan: I have reiterated to her family that her home machine needs to be brought in here. Especially in view of the fact of the morphine use. Subjective: Patient's mental status is improved and is slightly doing better with pain control Objective: Vital signs and nursing notes reviewed Head: Normocephalic atraumatic General: Ill-appearing Mouth: No lesions Neck: Supple Chest: Clear to auscultation Cor: Regular rate and rhythm S1-S2 Abdomen: Soft tenderness in the right upper quadrant no rebound no guarding Extremities: Trace bilateral pedal edema Skin: Slightly decreased turgor Psych: Mood and affect are appropriate but slightly blunted affect Neuro: Alert and oriented x3, motor strength intact bilaterally
[2022-11-21] MEDS: tiZANidine 4 MG TABLET PO SCH (21:13)
[2022-11-22] MEDS: SODIUM CHLORIDE FLUSH 0.9% 10 ML SYRINGE IVP SCH ×3 (02:45→16:37)
[2022-11-22] MEDS: SODIUM CHLORIDE FLUSH 0.9% 10 ML SYRINGE IVP PRN ×2 (05:31)
[2022-11-22] MEDS: LEVOTHYROXINE 75 MCG TABLET PO SCH (05:31)
[2022-11-22 05:42] LABS: BASOPHILS % (AUTO) 0.3 %; EOSINOPHILS % (AUTO) 0.1 %; HCT - HEMATOCRIT 35.9 % (37.0-47.0); LYMPHOCYTES # (AUTO) 1.6 10^3/uL (1.5-3.5); LYMPHOCYTES % (AUTO) 10.1 %; MEAN CORPUSCULAR HEMOGLOBIN 29.8 pg (27.0-31.0); MEAN CORPUSCULAR HGB CONC 30.6 g/dL (32.0-36.0); MEAN CORPUSCULAR VOLUME 97.3 fL (81.0-99.0); MONOCYTES # (AUTO) 1.3 10^3/uL (0.0-1.0); MONOCYTES % (AUTO) 8.5 %; NEUTROPHILS # (AUTO) 12.4 10^3/uL (1.5-6.6); NEUTROPHILS % (AUTO) 78.8 %; NRBC ABSOLUTE COUNT (AUTO) 0.05 x10^3/uL; NUCLEATED RED BLOOD CELLS AUTO 0.3 /100WBC; PLT - PLATELET COUNT 130 10^3/uL (130-450); RED BLOOD COUNT 3.69 10^6/uL (4.20-5.40); RED CELL DISTRIBUTION WIDTH 17.1 % (12.0-15.0); WHITE BLOOD COUNT 15.7 x10^3/uL (4.8-10.8)
[2022-11-22] MEDS: MIN OIL/DIMETHICON/COCONUT OIL 92 GM TUBE TOP PRN (05:49)
[2022-11-22 05:50] LABS: CALCIUM 8.6 mg/dL (8.5-10.3); CREATININE 0.7 mg/dL (0.4-1.0); POTASSIUM 4.3 mmol/L (3.5-5.0)
[2022-11-22] MEDS: MULTIVITAMIN W/MINERALS TABLET PO SCH (08:10)
[2022-11-22] MEDS: PREGABALIN 100 MG CAPSULE PO SCH ×2 (08:10→20:37)
[2022-11-22] MEDS: FAMOTIDINE 20 MG TABLET PO SCH ×2 (08:10→20:37)
[2022-11-22] MEDS: dexAMETHasone 4 MG TABLET PO SCH ×2 (08:10→16:36)
[2022-11-22] MEDS: DOCUSATE SODIUM 250 MG CAPSULE PO SCH (08:10)
[2022-11-22] MEDS: CHOLECALCIFEROL 25 MCG TABLET PO SCH (08:10)
[2022-11-22] MEDS: CALCIUM CITRATE 250 MG TABLET PO SCH (08:11)
[2022-11-22] MEDS: MORPHINE SULFATE ER 30 MG TABLET PO SCH ×2 (08:11→20:37)
[2022-11-22] MEDS: polyethylene glycoL 3350 17 GM PACKET PO SCH (08:11)
[2022-11-22] MEDS: INSULIN LISPRO 300 UNIT/3 ML PEN SUBQ SCH ×4 (08:11→20:38)
[2022-11-22] MEDS: NYSTATIN POWDER 15 GM TOP SCH ×2 (08:11→20:45)
[2022-11-22] MEDS: MIDODRINE 2.5 MG TABLET PO SCH ×3 (08:11→16:37)
[2022-11-22] MEDS: ONDANSETRON 4 MG/2 ML VIAL IVP PRN (08:55)
--- NOTE | 2022-11-22 16:01 | PROVIDER PROGRESS NOTE ---
Assessment/Plan - Problem List (1) Liver masses Assessment/Plan: Her CT scan then the ultrasound done showed "innumerable" masses in the liver. There is one particularly large mass measuring 6.2 cm in the right posterior lobe. The ED provider was the first 1 to tell the patient and that she isabela jacobs has cancer. We had planned to get tissue sample for pathology. Conversation was held with radiology on November 14 and we needed to normalize her INR. On November 14 she received vitamin K and FFP. In spite of that, her INR is still over 4 today. Today's radiologist wanted better imaging with contrast and a repeat CT was done. Not only does she have the same liver masses, she appears to have nodules in the paracolic gutter indicating carcinomatosis. Lymphadenopathy. She is still not ready for biopsy because of INR. I am also noting that she has changes of inflammation on her gallbladder. Could you have passed a stone? Could she have primary hepatobiliary cancer that has metastasized. In speaking to radiology I repeated the CT of abdomen and used contrast 11/15, and the repeat CAT scan has been helpful so he does not have to worry about a hemangioma. I also spoke to oncology in the medical ambulatory clinic 11/15. I presented the case to the oncologist. Her hypotension and possible sepsis is definitely concerning. But they feel that if we can get her through this temporary phase o f illness, and have a tissue diagnosis, there are therapies that could allow her a decent quality of life in an extended life of a few years. They feel it is worth getting a liver biopsy and moving forward with at least getting a tissue diagnosis. I also spoke to the patient about CODE STATUS on 11/15. She really did understand the possibility that she could have a terminal illness and she was un derstandably tearful and grief stricken. This is all happening so fast. I discussed what the resuscitative effort would mean with regards to CPR and intubation. She states that she does not want that. While she is willing to go to do treatment, get a biopsy, and see how she does, she feels that a full on resuscitative measures with CPR and intubation would not be what she wants. "What would be the point" is her statement. So CODE STATUS was changed to DO NOT RESUSCITATE. Some of the tumor markers have already come back. Alpha-fetoprotein is 1.8. Normal levels. CA 15-3 is 623. High. CA 19-9 antigen is pending. Ca1 25 antigen is 14 and within normal range. CEA is 1633.5. I started Decadron yesterday. Some oncology literature suggest that pain is relieved by the anti-inflammatory effects of the steroids. Plan: Tumor markers as already discussed above She has a POLST form at the bedside that she would like me to fill out with her. I was not able to do that yesterday. She is asked that her and daughter Katy be the points of contact for the POLST form 11/18/22-anticipate liver biopsy per IR 11/20/22- stable. Await IR biopsy of liver. ? tomorrow.INR=1.7 today and given Vit K 10 mg 11/21/22- Patient was supposed to have liver ultrasound biopsy today and is awaiting this. Unfortunately she was served lunch and will need to check with radiology regarding further plans. INR was 1.4 this a.m. 11/22/22 - Today I tried to coordinate anesthesia department with interventional radiology for her to get a liver biopsy. I learned that anesthesia does not provide services for IR. The IR doctor today said that it was the DI sedation nurse who felt the patient's ASA was too high and that she needed biopsy done elsewhere. At the same time she was seen by palliative care provider Priscilla Panda NP who discussed possible hospice. By the end of the day the patient declined the biopsy, did not want to possibly get a liver laceration, and wanted to go home under hospice care with plan for comfort care and dying. (2) RUQ abdominal pain Impression: This unfortunate female has already had imaging studies that tell us that she has multiple, multiple masses to her liver. The presumptive thought is that she has metastatic disease of unknown primary. There is nodularity along the capsule as well as the parenchyma. Gallbladder is unremarkable. No hydronephrosis. This was seen on the admission abdomen/pelvis CT November 13. That was done without contrast. Abdominal ultrasound also shows innumerable hypoechoic mass lesions. 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 The intrahepatic ducts appear nondilated. There is dilation of the extrahepatic duct with the common bile duct 1 cm (think primary hepatobiliary w mets or a passed stone). Her total bili was 1.7 on admission. It is 1.1 today. AST was 206 on admission and is 66 today. ALT was 74 on admission and is now 45 today. Alk phos was 311 and is 220 today. Ammonia level is 15.3. 11/15 The radiologist and I discussed the previous CT. And our plans moving forward. Our obvious suspicion is that she has cancer, either hepatobiliary of mets. Or unknown primary with mets. I am hoping for a pathologic piece of tissue to give us the diagnosis. I was worried that she may be bleeding in her liver causing such new intractable pain. After I reviewed her liver function studies, I also thought she could be having gallbladder symptoms even though she did not have stones on the admission CT. If her elevated liver function studies were from tumor, they should not be going down. And they are going down. Radiologist is worried that they do not have a contrasted CAT scan to let him know if they will be getting into trouble with an angioma. So I ordered a multiphase CT of the abdomen 11/15. There is no hemangioma. No bleeding under the capsule. The liver masses were much better delineated for the radiologist. We agreed that as long as I can get her INR below 2 she could go t o biopsy on 11/16. Then I reviewed the radiology literature with 11/16 radiologist. Their guideline s state that the INR needs to be below 1.5. See problem #2. Her pain is better with the morphine MANAGER EDUCATIONAL pump. I have ordered a 1 mg/h continuous infusion rate. I am allowing her 1 mg every 10 minutes with a max of 8 mg in 4 hours and I ordered a Palliative Care consult. Plan: Continue above MANAGER EDUCATIONAL pump Palliative care has seen the patient today. She was seen in the late afternoon and they have not had time to dictate their note. They predict that this patient will most likely need to be discharged on long-acting opioids. They will review how much morphine she has had delivered over the last 2 days and calculate an appropriate conversion dose and let me know. 11/18/22 - Appreciate palliative care consult. Will change pain medication regimen per palliative care recommendation.Anticipate IR obtained liver biopsy. 11/22/22 - As above in #1, and the plan will be to go home with Hospice for comfort care. Equipment to the home is to be delivered tomorrow and she will be discharged home with narcotics for pain control (3) Transaminitis The family was all in the room and reported that the patient gets yearly thorough blood tests. These were done in April 2022 and the LFTs were normal then ( I reviewed all labs in this EMR). I questioned her about alcohol use and she hardly uses any. The and other family members concur. In following her liver function studies daily, they are improving. If she truly had LFTs that were elevated because of tumor, the LFTs would not be getting better. Since they are getting better it makes me wonder if she has a transitory process such as cholecystitis or a passed stone giving her the right upper quadrant pain that so severe today. I reiterated to them that her liver function studies could be normal in spite of having tumor in the liver. I really do not think that something was missed in April on the basis of labs. Plan: By the end of the day she did not want her liver biopsy therefore no further la bs will be done (4) DM II The patient takes metformin. The admitted she does not really follow a diabetic diet. Our treatment consist of ACHS fingerstick checks and sliding scale insulin coverage for this. A1c is 7.1%. 11/14 her glucose was 96, 124, 154, 131. 11/15 her glucose was 108, 139. , 112, 139 November 16: 132, 143, 200 Today 163, 240 (I did start her on Decadron yesterday) She is eating 0 to 75% of her food. She says that she appreciates her diet being changed to regular diet on November 15. She really did not like the dysphagia pured diet. Plan: We will allow comfort eating, since the plan is to go home for comfort care (5) Chronic pain I asked the patient and why she is on methadone. There is a history of previously needing to be on oxycodone at very high doses which was then transitioned to methadone. Her chronic pain was in her neck and lower back. 11/15 her right upper quadrant pain is so severe that she is requiring doses of morphine IV that are not holding her. It is not her diffuse pain that is bothering her. I stopped the methadone and started her on a MANAGER EDUCATIONAL pump. Her pain is better controlled with the MANAGER EDUCATIONAL pump. 11/17: Part of the reason I requested a palliative care consult was discharge transitioning this patient to oral meds to control her pain. Consult will be dictated later today and she will be making recommendations. Plan: MANAGER EDUCATIONAL pump as noted above 11/18/22-patient will be transferred off of MANAGER EDUCATIONAL and administer pain meds as recommended by palliative care 11/22/22 - As above in #1, and the plan will be to go home with Hospice for comfort care. Equipment to the home is to be delivered tomorrow and she will be discharged home with narcotics for pain control (6) Hypothyroidism Her TSH is elevated but free T4 is normal. Plan: Continue with her same home thyroid replacement dose (7) ALINA Cont to use her her home CPAP machine (8) Hx of CVA Patient has had 3 strokes, 2002, 2012 and 2013. 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 She has chronic weakness on one side. She uses walk She is on chronic warfarin since those strokes Plan: We initially plan to have PT and OT work with her. Today she decided against any further work-up of the masses and will go home for comfort care under Hospice (9) Hypotension Impression: RESOLVED She was transferred to the ICU November 15 for her hypotension. In this unfortunate female, hypotension could be from the disease process in her liver. CT scan shows extensive, multiple, masses in the liver. A left paracolic gutter nodule, and lymphadenopathy. She does not appear to have signs and symptoms of sepsis other than hypotension and no objective source on CT, CXR or UA. There is no pulmonary, GI, or findings other than pericholecystic inflammation on CT done on admission. She is tender in the right upper quadrant. She is not having an [place]. She does not have a GI bleed but could be bleeding in her liver due to mets and an elevated INR (but no tachycardia on vitals). She is not intravascularly depleted with dehydration Treatment consisted of Levophed to keep mean arterial pressure at 65. The repeat abdomen pelvis CT done yesterday for the intractable right upper quadrant pain has no evidence of obstruction. She continues to have left paracolic gutter lesion, a liver that is filled with innumerable masses. She has nonspecific pericholecystic fluid and wall thickening. The biliary tree and pancreatic duct are prominent without definite pathologic dilation or obstruction. Possible small splenic cyst. Pathologic appearing lymph nodes. Pelvis has a small amount of free fluid. Quintanilla is in place with an under distended bladder. She had a hysterectomy. Since infection could not be completely ruled out, I started her on broad- spectrum antibiotics with cefepime, vancomycin, and Flagyl. Today is day #3. She did have blood cultures on November 13. Those were positive today with gram-positive cocci. PCR has staph species. Since they became positive 3 days after they were done, I suspect this is contamination. I also ordered blood cultures on November 15. Those blood cultures have had no growth after 24 hours. Levophed continues at 2 mcg. Blood pressure is 136 systolic at times. Urine o utput is maintained. Plan: Stop empiric antibiotics and monitor for signs and symptoms of infection I Reduced Levophed to 1 mcg and see how she does. I have again encouraged nursing to see if we can get her off the Levophed. I have asked nursing to please get this patient out of bed and into a chair. And I have asked physical therapy to start working with her. 11/18/2022 - Patient is currently off of IV Levophed and is having adequate blood pressure support (10) Supratherapeutic INR Impression: RESOLVED When the patient was admitted she was admitted with an INR of greater than 10. She takes medication for atrial fibrillation which includes Coumadin. She was taking her medication in spite of not having any p.o. intake for 4 days. Between the liver being replaced by cancer, dehydration, and taking her Coumadin, she was supratherapeutic. She received FFP on admission. On the second day her INR was 4.7 and she received vitamin K. the third day, her INR was 4.3 and she received more vitamin K. We are attempting to get her down to less than 1.5. She needs this for radiology for liver biopsy. On the 4th day, INR was 1.9. Radiology had cancelled her biopsy and has asked that I treat her again for the INR. Family is understandably worried and upset. They really want this biopsy to see what the diagnosis is going to be to them let oncology know what treatment would be. I ordered fresh frozen plasma. But we ended up not using it. Radiology reviewed the chart and felt that since the patient was on Levophed, "hemodynamically unstable", she was not a good candidate for liver biopsy due to the risk of bleeding. As such the biopsy was canceled. Radiology was able to come and speak to the family and explained their thought process to the family. 11/18/22 - -Awaiting INR to be 1.5 per interventional radiology in order to do biopsy (11) Altered mental status Impression: RESOLVED By November 15 she was alert enough to process the information I was telling her and be appropriately grief stricken and fearful about the cancer diagnosis. She was able to tell me what she was feeling, able to describe her pain well. , who was at the bedside yesterday, endorsed that she was the best she has been since being in the hospital. She continues to be fatigued, weak, but is oriented to person place and time. Plan: Most likely her altered mental status was from the dehydration and the pain of liver mets. I have encouraged nursing to get the patient out of bed and in a chair. She is lost a lot of ground. Plan is for her to be discharged home and want her to be able to stand and pivot and walk 1 step. 11/21patient has ordered home health OT PT nurse and bath aide consult (12) Acute kidney injury resolved RESOLVED She normally runs a creatinine of 0.8. With her history of 4 days of poor oral intake, she is dehydrated and this caused her RAFAEL. Her BUN/creatinine on admission were 41/2.3. Not only was her lisinopril stopped, she was started on IV fluids and >> 34/1.6>>18/0.9>>13/0.7 today. Plan: Avoid nephrotoxins Continue with IV fluids Follow BMP daily - Current Meds Current Meds: Current Medications Generic Name Dose Route Start Last Admin Trade Name Eric PRN Reason Stop Dose Admin Calcium Citrate 500 mg 11/15/22 09:00 11/22/22 08:11 Calcium Citrate 250 Mg Tablet PO 500 mg DAILY MARANDA Administration Cholecalciferol 25 mcg 11/15/22 09:00 11/22/22 08:10 Cholecalciferol 25 Mcg Tablet PO 25 mcg DAILY MARANDA Administration Dexamethasone 2 mg 11/16/22 13:10 11/22/22 08:10 Dexamethasone 4 Mg Tablet PO 2 mg BIDWM MARANDA Administration Docusate Sodium 250 - 500 mg 11/17/22 12:00 11/22/22 08:10 Docusate Sodium 250 Mg Capsule PO 250 mg DAILY MARANDA Administration Famotidine 20 mg 11/15/22 21:00 11/22/22 08:10 Famotidine 20 Mg Tablet PO 20 mg BID MARANDA Administration Insulin Human Lispro 1 - 9 unit 11/13/22 21:00 11/22/22 11:59 Insulin Lispro 300 Unit/3 Ml Pen SUBQ 1 unit 0800,1200,1700,2100 MARANDA Administration Protocol Levothyroxine Sodium 150 mcg 11/14/22 07:30 11/22/22 05:31 Levothyroxine 75 Mcg Tablet PO 150 mcg QDAC MARANDA Administration Midodrine 5 mg 11/18/22 12:00 11/22/22 11:59 Midodrine 2.5 Mg Tablet PO 5 mg TIDWM MARANDA Administration Mineral Oil 1 applic 11/14/22 10:13 11/22/22 05:49 Min Oil/Dimethicon/Coconut Oil 92 Gm Tube TOP 1 applic PRN PRN Administration Skin Care Morphine Sulfate 7.5 mg 11/18/22 11:28 11/21/22 16:40 Morphine Ir 15 Mg Tablet PO 7.5 mg Q6HR PRN Administration BREAKTHROUGH Pain (Level 1-10) Morphine Sulfate 30 mg 11/18/22 21:00 11/22/22 08:11 Morphine Sulfate Er 30 Mg Tablet PO 30 mg BID MARANDA Administration Multivitamins/Minerals 1 tab 11/15/22 08:00 11/22/22 08:10 Multivitamin W/Minerals Tablet PO 1 tab DAILYWM MARANDA Administration Nystatin 1 applic 11/14/22 11:47 11/22/22 08:11 Nystatin Powder 15 Gm TOP 1 applic BID MARANDA Administration Ondansetron HCl 4 mg 11/14/22 10:19 11/22/22 08:55 Ondansetron 4 Mg/2 Ml Vial IVP 4 mg Q4HR PRN Administration Nausea / Vomiting Polyethylene Glycol 17 gm 11/14/22 09:00 11/22/22 08:11 Polyethylene Glycol 3350 17 Gm Packet PO 17 gm DAILY MARANDA Administration Pregabalin 200 mg 11/14/22 12:30 11/22/22 08:10 Pregabalin 100 Mg Capsule PO 200 mg BID MARANDA Administration Sodium Chloride 10 ml 11/13/22 20:11 11/22/22 05:31 Sodium Chloride Flush 0.9% 10 Ml Syringe IVP 10 ml PRN PRN Administration NEEDED PER PROVIDER ORDERS Sodium Chloride 10 ml 11/14/22 01:00 11/22/22 08:12 Sodium Chloride Flush 0.9% 10 Ml Syringe IVP 10 ml 0100,0900,1700 MARANDA Administration Sodium Chloride 20 ml 11/16/22 01:17 11/22/22 05:31 Sodium Chloride Flush 0.9% 10 Ml Syringe IVP 20 ml PRN PRN Administration After Blood Draw Tizanidine HCl 8 mg 11/14/22 21:00 11/21/22 21:13 Tizanidine 4 Mg Tablet PO 8 mg QPM MARANDA Administration - Lab Result Fish Bone Diagrams: 11/22/22 05:33 11/22/22 05:33 - Additional Planning My Orders: My Active Orders 11/22/22 Hospice Referral for Post-Discharge Services [CONS] Routine Subjective - Subjective Patient Reports: Fatigue, Pain Objective Vital Signs: Vital Signs - 24 hr 11/22/22 11/22/22 11/22/22 05:41 07:38 08:00 Temperature 36.6 C 36.6 C Heart Rate [ 69 62 Brachial] Respiratory 16 18 Rate Blood Pressure 140/71 H 164/70 H [Left Brachial artery] O2 Saturation 93 99 If not protocol 1 1 1 : Oxygen Flow, liters/minute 11/22/22 08:20 Temperature Heart Rate [ 70 Brachial] Respiratory Rate Blood Pressure 142/60 H [Left Brachial artery] O2 Saturation If not protocol : Oxygen Flow, liters/minute Oxygen O2 Source [With Activity] Nasal cannula O2 Source Nasal cannula Oxygen Flow Rate 2 I&O (Last 24 Hrs): Intake and Output Totals x24h 11/20/22 11/21/22 11/22/22 23:59 23:59 23:59 Intake Total 877 1190 240 Output Total 1550 2500 1900 Balance -673 -1310 -1660 General: Moderate distress (From pain), Other (Lethargic) HEENT: Mucous membr. moist/pink Neck: Supple Neuro: Alert (She appears tired, she has marked weakness globally) Cardiovascular: Regular rate Respiratory: No respiratory distress Abdomen: Other (Mildly distended, mildly tender in the upper abdomen) Extremities: No clubbing, No tenderness/swelling - Results Results: Laboratory Results WBC 15.7 x10^3/uL (4.8-10.8) H 11/22/22 05:33 RBC 3.69 10^6/uL (4.20-5.40) L 11/22/22 05:33 Hgb 11.0 g/dL (12.0-16.0) L 11/22/22 05:33 Hct 35.9 % (37.0-47.0) L 11/22/22 05:33 MCV 97.3 fL (81.0-99.0) 11/22/22 05:33 MCH 29.8 pg (27.0-31.0) 11/22/22 05:33 MCHC 30.6 g/dL (32.0-36.0) L 11/22/22 05:33 RDW 17.1 % (12.0-15.0) H 11/22/22 05:33 Plt Count 130 10^3/uL (130-450) 11/22/22 05:33 MPV 12.0 fL (7.9-10.8) H 11/22/22 05:33 Neut # (Auto) 12.4 10^3/uL (1.5-6.6) H 11/22/22 05:33 Lymph # (Auto) 1.6 10^3/uL (1.5-3.5) 11/22/22 05:33 [place] # (Auto) 1.3 10^3/uL (0.0-1.0) H 11/22/22 05:33 Eos # (Auto) 0.0 10^3/uL (0.0-0.7) 11/22/22 05:33 Baso # (Auto) 0.0 10^3/uL (0.0-0.1) 11/22/22 05:33 Absolute Nucleated RBC 0.05 x10^3/uL 11/22/22 05:33 Total Counted 100 11/20/22 04:47 Band Neuts % (Manual) 1 % (0-10) 11/20/22 04:47 Abnorm Lymph % (Manual) 0 % 11/20/22 04:47 Metamyelocytes % 2 % (-0) H 11/20/22 04:47 Nucleated RBC % 0.3 /100WBC 11/22/22 05:33 Neutrophils # (Manual) 9.2 10^3/uL (1.5-6.6) H 11/20/22 04:47 Lymphocytes # (Manual) 0.8 10^3/uL (1.5-3.5) L 11/20/22 04:47 Monocytes # (Manual) 1.7 10^3/uL (0.0-1.0) H 11/20/22 04:47 Eosinophils # (Manual) 0.0 10^3/uL (0-0.7) 11/20/22 04:47 Basophils # (Manual) 0.0 10^3/uL (0-0.1) 11/20/22 04:47 Differential Comment MANUAL DIFFERENTIAL 11/20/22 04:47 Manual Slide Review Indicated 11/20/22 04:47 WBC Morphology NORMAL APPEARANCE (NORMAL) 11/20/22 04:47 Platelet Estimate NORMAL (130-450,000) (NORMAL) 11/20/22 04:47 Platelet Morphology NORMAL APPEARANCE (NORMAL) 11/20/22 04:47 RBC Morph Micro Appear 1+ ANISOCYTOSIS (NORMAL) 1+ TEARDROP CELLS (NORMAL) 11/20/22 04:47 RBC Morph Micro Appear 1+ ANISOCYTOSIS (NORMAL) 1+ TEARDROP CELLS (NORMAL) 11/20/22 04:47 PT 15.1 secs (9.9-12.6) H 11/21/22 11:04 INR 1.4 (0.8-1.2) H 11/21/22 11:04 VBG pH 7.367 (7.31-7.41) 11/18/22 04:40 VBG pCO2 44.1 mmHg (41-51) 11/13/22 18:39 VBG pO2 45.6 mmHg (25-47) 11/13/22 18:39 VBG HCO3 23.4 mmol/L (23-28) 11/13/22 18:39 VBG Total CO2 24.8 mmol/L (24-29) 11/13/22 18:39 VBG O2 Saturation 78.9 % (60-80) 11/13/22 18:39 VBG Base Excess -2.4 mmol/L (-2 - +2) L 11/13/22 18:39 Ionized Calcium 1.08 mmol/L (1.15-1.33) L 11/18/22 04:40 Sodium 142 mmol/L (135-145) 11/22/22 05:33 Potassium 4.3 mmol/L (3.5-5.0) 11/22/22 05:33 Chloride 92 mmol/L (101-111) L 11/22/22 05:33 Carbon Dioxide 38 mmol/L (21-32) H 11/22/22 05:33 Anion Gap 12.0 (6-13) 11/22/22 05:33 BUN 20 mg/dL (6-20) 11/22/22 05:33 Creatinine 0.7 mg/dL (0.4-1.0) 11/22/22 05:33 Estimated GFR (MDRD) 82 (>89) L 11/22/22 05:33 Glucose 160 mg/dL (70-100) H 11/22/22 05:33 POC Whole Bld Glucose 180 mg/dL (70 - 100) H 11/22/22 11:30 Estimat Average Glucose 157 mg/dL (70-100) H 11/14/22 05:45 Hemoglobin A1c % 7.1 % (4.27-6.07) H 11/14/22 05:45 Lactic Acid 0.8 mmol/L (0.5-2.2) 11/15/22 02:42 Calcium 8.6 mg/dL (8.5-10.3) 11/22/22 05:33 Phosphorus 2.2 mg/dL (2.5-4.6) L 11/18/22 04:40 Magnesium 2.1 mg/dL (1.7-2.8) 11/18/22 04:40 Total Bilirubin 1.1 mg/dL (0.2-1.0) H 11/16/22 04:38 AST 70 IU/L (10-42) H 11/16/22 04:38 ALT 52 IU/L (10-60) 11/16/22 04:38 Alkaline Phosphatase 303 IU/L (42-121) H 11/16/22 04:38 Ammonia 15.3 umol/L (7-35) 11/15/22 05:10 Troponin I High Sens 56.9 ng/L (2.3-14.8) H* 11/15/22 05:10 B-Natriuretic Peptide 81 pg/mL (5-100) 11/15/22 02:42 Total Protein 5.5 g/dL (6.7-8.2) L 11/16/22 04:38 Albumin 2.2 g/dL (3.2-5.5) L 11/16/22 04:38 Globulin 3.3 g/dL (2.1-4.2) 11/16/22 04:38 Albumin/Globulin Ratio 0.7 (1.0-2.2) L 11/16/22 04:38 Tumor Marker AFP 1.8 ng/mL (0.0-9.2) 11/14/22 05:45 Carcinoembryonic Ag 1633.5 ng/mL 11/14/22 05:45 CA 15-3 Antigen 625.2 U/mL (0.0-31.3) H 11/14/22 05:45 CA 19-9 Antigen 435562 U/mL (0-35) H 11/14/22 05:45 CA 125 Antigen 14.0 U/mL (0.0-35.0) 11/14/22 05:45 TSH 7.06 uIU/mL (0.34-5.60) H 11/13/22 18:39 Free T4 0.98 ng/dL (0.58-1.64) 11/14/22 05:45 Urine Color YELLOW 11/13/22 19:16 Urine Clarity HAZY (CLEAR) 11/13/22 19:16 Urine pH 5.5 PH (5.0-7.5) 11/13/22 19:16 Ur Specific [place] 1.020 (1.002-1.030) 11/13/22 19:16 Urine Protein 100 mg/dL (NEGATIVE) H 11/13/22 19:16 Urine Glucose (UA) NEGATIVE mg/dL (NEGATIVE) 11/13/22 19:16 Urine Ketones NEGATIVE mg/dL (NEGATIVE) 11/13/22 19:16 Urine Occult Blood LARGE (NEGATIVE) H 11/13/22 19:16 Urine Nitrite NEGATIVE (NEGATIVE) 11/13/22 19:16 Urine Bilirubin NEGATIVE (NEGATIVE) 11/13/22 19:16 Urine Urobilinogen 0.2 (NORMAL) E.U./dL (NORMAL) 11/13/22 19:16 Ur Leukocyte Esterase NEGATIVE (NEGATIVE) 11/13/22 19:16 Urine RBC 0-5 /HPF (0-5) 11/13/22 19:16 Urine WBC 0-3 /HPF (0-5) 11/13/22 19:16 Ur Squamous Epith Cells RARE Squamous (<= Few) 11/13/22 19:16 Amorphous Sediment Few /LPF 11/13/22 19:16 Urine Bacteria Few /HPF (None Seen) 11/13/22 19:16 Urine Culture Comments NOT INDICATED 11/13/22 19:16 Nasal Adenovirus (PCR) NOT DETECTED 11/13/22 18:36 Nasal B. parapertussis DNA (PCR) NOT DETECTED 11/13/22 18:36 Nasal Coronavir 229E PCR NOT DETECTED 11/13/22 18:36 Nasal Coronavir HKU1 PCR NOT DETECTED 11/13/22 18:36 Nasal Coronavir NL63 PCR NOT DETECTED 11/13/22 18:36 Nasal Coronavir OC43 PCR NOT DETECTED 11/13/22 18:36 Nasal Enterovir/Rhinovir PCR NOT DETECTED 11/13/22 18:36 Nasal Influenza B PCR NOT DETECTED 11/13/22 18:36 Nasal Influenza A PCR NOT DETECTED 11/13/22 18:36 Nasal Parainfluen 1 PCR NOT DETECTED 11/13/22 18:36 Nasal Parainfluen 2 PCR NOT DETECTED 11/13/22 18:36 Nasal Parainfluen 3 PCR NOT DETECTED 11/13/22 18:36 Nasal Parainfluen 4 PCR NOT DETECTED 11/13/22 18:36 Nasal RSV (PCR) NOT DETECTED 11/13/22 18:36 Nasal Screen MRSA (PCR) NEGATIVE (NEGATIVE) 11/15/22 20:33 Nasal B.pertussis DNA PCR NOT DETECTED 11/13/22 18:36 Nasal C.pneumoniae (PCR) NOT DETECTED 11/13/22 18:36 Fei Human Metapneumo PCR NOT DETECTED 11/13/22 18:36 Nasal M.pneumoniae (PCR) NOT DETECTED 11/13/22 18:36 Nasal SARS-CoV-2 (PCR) NOT DETECTED 11/13/22 18:36 Urine Opiates Screen NEGATIVE (NEGATIVE) 11/13/22 19:16 Ur Oxycodone Screen NEGATIVE (NEGATIVE) 11/13/22 19:16 Urine Methadone Screen POSITIVE (NEGATIVE) H 11/13/22 19:16 Ur Propoxyphene Screen NEGATIVE (NEGATIVE) 11/13/22 19:16 Ur Barbiturates Screen NEGATIVE (NEGATIVE) 11/13/22 19:16 Ur Tricyclics Screen NEGATIVE (NEGATIVE) 11/13/22 19:16 Ur Phencyclidine Scrn NEGATIVE (NEGATIVE) 11/13/22 19:16 Ur Amphetamine Screen NEGATIVE (NEGATIVE) 11/13/22 19:16 U Methamphetamines Scrn NEGATIVE (NEGATIVE) 11/13/22 19:16 U Benzodiazepines Scrn NEGATIVE (NEGATIVE) 11/13/22 19:16 Urine Cocaine Screen NEGATIVE (NEGATIVE) 11/13/22 19:16 U Cannabinoids Screen NEGATIVE (NEGATIVE) 11/13/22 19:16 Ethyl Alcohol < 5.0 mg/dL 11/13/22 18:39 Blood Type B POSITIVE 11/13/22 19:13 Blood Type Recheck B POSITIVE 11/13/22 18:39
[2022-11-22] MEDS: MORPHINE IR 15 MG TABLET PO PRN (16:36)
--- NOTE | 2022-11-22 18:16 | CONSULTATION NOTE ---
Palliative Care Follow Up - Referral Referring Provider: Dr. Hayley Mac Time of Visit: 2:15-2:45; 3:15 -4:10 pm Referral setting: Hospitalized patient Referral Reason: Unknown Primary Cancer with Liver Mets; Goals of care - Information Sources Records reviewed: RN notes reviewed History/Review of Systems obtained from: Patient, Family () - History of Present Illness Update Brief HPI Update: See HPI for further information. This is a 72-year-old woman who is admitted acutely on 11/23/2022 for significant changes in mental status, worsening abdominal pain and weakness. Patient has still not had her liver biopsy, there is been some confusion regarding this, and it has been tentatively rescheduled for tomorrow. In the meantime palliative care has had a goals of care conversation with patient, please see palliative care discussion. Patient has continued be quite weak, though has gotten up out of bed with significant assi stance, has very poor appetite, her pain is currently controlled on her current regimen, but she is quite anxious to get home. Past Medical History: Hypertension, history of 3 strokes, peripheral neuropathy, type 2 diabetes, hypothyroidism, chronic constipation, osteoarthritis, chronic back pain Social History - Living Situation Living arrangement: At home Living Situation: With spouse/s.o. Support System: [place] and her family, there is 2 houses as well as an apartment on the property, she and her live in [facility], her daughter and her family live in the other, and their grandson lives in the apartment. They do have 4 children total, and 10 grandkids. They do have a large and supportive family. The daughters have been here taking turns to sleep and provide support so father can go home. Her sister has arrived as well, they are all appropriately concerned. Medications/Allergies - Medications Active Medication List: Active Medications Calcium Citrate (Calcium Citrate 250 Mg Tablet) 500 mg PO DAILY [facility] Last Admin: 11/22/22 08:11 Dose: 500 mg Cholecalciferol (Cholecalciferol 25 Mcg Tablet) 25 mcg PO DAILY [facility] Last Admin: 11/22/22 08:10 Dose: 25 mcg Dexamethasone (Dexamethasone 4 Mg Tablet) 2 mg PO BIDWM [facility] Last Admin: 11/22/22 08:10 Dose: 2 mg Docusate Sodium (Docusate Sodium 250 Mg Capsule) 250 - 500 mg PO DAILY [facility] Last Admin: 11/22/22 08:10 Dose: 250 mg Famotidine (Famotidine 20 Mg Tablet) 20 mg PO BID [facility] Last Admin: 11/22/22 08:10 Dose: 20 mg Insulin Human Lispro (Insulin Lispro 300 Unit/3 Ml Pen) 1 - 9 unit SUBQ 0800,1200,1700,2100 [facility]; Protocol Last Admin: 11/22/22 11:59 Dose: 1 unit Levothyroxine Sodium (Levothyroxine 75 Mcg Tablet) 150 mcg PO QDAC [facility] Last Admin: 11/22/22 05:31 Dose: 150 mcg Midodrine (Midodrine 2.5 Mg Tablet) 5 mg PO TIDWM [facility] Last Admin: 11/22/22 11:59 Dose: 5 mg Mineral Oil (Min Oil/Dimethicon/Coconut Oil 92 Gm Tube) 1 applic TOP PRN PRN PRN Reason: Skin Care Last Admin: 11/22/22 05:49 Dose: 1 applic Morphine Sulfate (Morphine Ir 15 Mg Tablet) 7.5 mg PO Q6HR PRN PRN Reason: BREAKTHROUGH Pain (Level 1-10) Last Admin: 11/21/22 16:40 Dose: 7.5 mg Morphine Sulfate (Morphine Sulfate Er 30 Mg Tablet) 30 mg PO BID [facility] Last Admin: 11/22/22 08:11 Dose: 30 mg Multivitamins/Minerals (Multivitamin W/Minerals Tablet) 1 tab PO DAILYWM [facility] Last Admin: 11/22/22 08:10 Dose: 1 tab Naloxone HCl (Naloxone 0.4 Mg/Ml Vial) 0.4 mg IVP PRN PRN PRN Reason: respiration <10 Nystatin (Nystatin Powder 15 Gm) 1 applic TOP BID [facility] Last Admin: 11/22/22 08:11 Dose: 1 applic Ondansetron HCl (Ondansetron 4 Mg/2 Ml Vial) 4 mg IVP Q4HR PRN PRN Reason: Nausea / Vomiting Last Admin: 11/22/22 08:55 Dose: 4 mg Polyethylene Glycol (Polyethylene Glycol 3350 17 Gm Packet) 17 gm PO DAILY [facility] Last Admin: 11/22/22 08:11 Dose: 17 gm Pregabalin (Pregabalin 100 Mg Capsule) 200 mg PO BID [facility] Last Admin: 11/22/22 08:10 Dose: 200 mg Sodium Chloride (Sodium Chloride Flush 0.9% 10 Ml Syringe) 10 ml IVP PRN PRN PRN Reason: NEEDED PER PROVIDER ORDERS Last Admin: 11/22/22 05:31 Dose: 10 ml Sodium Chloride (Sodium Chloride Flush 0.9% 10 Ml Syringe) 10 ml IVP 0100,0900,1700 [facility] Last Admin: 11/22/22 08:12 Dose: 10 ml Sodium Chloride (Sodium Chloride Flush 0.9% 10 Ml Syringe) 20 ml IVP PRN PRN PRN Reason: After Blood Draw Last Admin: 11/22/22 05:31 Dose: 20 ml Tizanidine HCl (Tizanidine 4 Mg Tablet) 8 mg PO QPM [facility] Last Admin: 11/21/22 21:13 Dose: 8 mg Atorvastatin Calcium 40 mg PO DAILY 08/21/20 Furosemide [Lasix] 20 mg PO DAILY 08/21/20 Levothyroxine Sodium [Levothyroxine] 150 mcg PO DAILY 08/21/20 Methadone [Methadone Hcl] 5 mg PO BID 08/21/20 Pregabalin [Lyrica] 150 mg PO BID 08/21/20 Warfarin [Coumadin] 5 mg PO DAILY 08/21/20 amLODIPine [Norvasc] 5 mg PO DAILY 08/21/20 tiZANidine [Zanaflex] 8 mg PO QPM 08/21/20 Metformin HCl [Metformin ER Osmotic] 500 mg PO BID 06/01/21 Aspirin [Aspirin EC] 1 tab PO DAILY PRN 11/14/22 Calcium Citrate/Vitamin D3 [Calcium Cit 315-Vit D3 250 Cpt] 2 tab PO DAILY 11/14/22 Cholecalciferol [Vitamin D3] 1 tab PO DAILY 11/14/22 Famotidine [Pepcid] 1 tab PO HS PRN 11/14/22 Lisinopril [Zestril] 1 tab PO DAILY 11/14/22 Multivitamin with Minerals [Multivitamins with Minerals] 1 tab PO DAILY 11/14/22 Pregabalin 1 cap PO BID 11/14/22 - Allergies Allergies/Adverse Reactions: Allergies Allergy/AdvReac Type Severity Reaction Status Date / Time No Known Drug Allergies Allergy Verified 04/25/22 14:56 Review of Systems - Constitutional Constitutional: reports: Fatigue, Weakness, Poor appetite (has had early satiety for a long period of time), Weight loss (20 pounds) - Ears, Nose & Throat Ears, Nose & Throat: reports: Hearing loss, Dry mouth - Cardiovascular Cardiovascular: reports: Exertional dyspnea - Respiratory Respiratory: reports: SOB with exertion - Gastrointestinal Gastrointestinal: reports: Abdominal pain, Constipation, Bloating, Poor appetite, Early satiety - Musculoskeletal Musculoskeletal: reports: Back pain, Limited range of motion, Muscle weakness, Assistive devices (uses cane at home), Transfer issues - Integumentary Integumentary: reports: Dryness - Neurological Neurological: reports: General weakness, Numbness, Pre-existing deficit, Abnormal gait - Psychiatric Psychiatric: reports: Anxiety - Endocrine Endocrine: reports: Diabetes type 2, Hypothyroidism - Hematologic/Lymphatic Hematologic/Lymph: reports: Anemia - All Other Systems All Other Systems: reports: Other (limited ROS;) Physical Exam - Vital Signs Vital Signs: Vital Signs x48h Pulse BP 11/22/22 08:20 70 142/60 H - Physical Exam General Appearance: positive: No acute distress Eyes Bilateral: positive: Normal inspection ENT: positive: Dry mucous membranes Neck: positive: Trachea midline Cardiovascular: positive: Regular rate & rhythm Respiratory: positive: No respiratory distress Abdomen: positive: Tenderness (right upper quadrant), Guarding, Distended, Obese Skin: positive: Pallor, Dryness Extremities: positive: No pedal edema Neurologic/Psychiatric: positive: Oriented x3, Depressed mood/affect, Flat affect Palliative Care - POLST Patient has POLST: Yes POLST Status: DNR Pain: Pain worsening, Location (right upper quadrant;) Performance Status: Patient has been mostly bedbound since hospitalization, and had acute functional decline prior to this. She was able to get out of bed today with PT/OT, but with significant effort. She is quite weak, but was very pleased with herself. - Palliative Care Discussion: 1430 Met with patient, regarding goals of care. She was by herself. Just checked in to see how she was doing, she feels like she is going backwards, not feeling very well. We did discuss in the context of her cancer, pending liver biopsy. She feels like she is not can to get better, and at that point they were talking about her liver biopsy next week. We discussed what was most important to her. She very much wants to go home, she is very much supported by her family and spend time with her family. We discussed also that her CA 19 is quite high, this often indicates pancreatic cancer, still would have some treatment options, but she would need to be more functional as far as weighing benefits and burdens and not causing more harm than good. She told me her mother of pancreatic cancer. Patient is quite pragmatic in the context of her health, she is quite surprised because of her sudden decline, but has not been doing well for several weeks to months. Asked her permission if I could talk to her little bit about other choice that she might have around suppo rtive/hospice care. Introduced that hospice was not about dying, but about living until you . Talked a little bit about the hospice benefit with that might look like as far as providing equipment, medications, the nursing and meeting services. But goals need to be comfort focused goals, would not include further work-up for her cancer or return to the hospital. She asked that I talk to her Jamin about this information, she reports that she her family really wants her to "fight". She is quite exhausted, and feels like she is getting worse and not better. 15:15 Met with Jamin , reviewed the information I gone over with patient. He reports when he came back they did have a conversation, about pancreatic cancer, reported that it was one of the tumor markers they had reviewed, he had not known that it was elevated and most likely a culprit for her underlying disease process. We did talk about what patient had expressed, is that she just wanted to go home, did not want the liver biopsy, and just to be comfortable. I did review with him I was not quite sure what finally transpired with the Liver biopsy I knew that the hospitalist was in making arrangements around that. I was happy to clarify. We did discuss to routes, going home and focusing on comfort, with hospice. This would mean no biopsy, or follow-up with oncology. We did discuss in the context of this information if she would make a different choice, he did not think so. Counseling provided regarding the continuum of care and the hospice benefit. After much discussion and clarification, he feels that patient would choose to go home with hospice. Agreed we go back to the room and clarify this. 15:45 Follow-up with hospitalist, they can do the liver biopsy tomorrow, were able to downgrade her concerns around anesthesiology support. It is still a possibility, risk is still there, but not as high as originally presented to patient and family. Followed up with family, did review with patient and , possibility of still having liver biopsy, patient was actually quite clear she did not want liver biopsy. We did discuss it is still an option and she can still go home on hospice, she does not feel like she would make a different decision with this plan as she does not feel like it would have a good outcome she "had a bad feeling about it". Did contact hospice about admitting, patient would like to get home as soon as possible, but would need hospital bed and commode. They will try and facilitate getting equipment, and in evening admit if not can admit the next day. This was shared with family. Clarified any further follow-up questions. Did provide them the book hard choices for loving people. Results - Lab Results Lab results reviewed: Yes Fish Bones: 11/22/22 05:33 11/22/22 05:33 Lab and Imaging Results: Lab Results x24hrs 11/22/22 11/22/22 11/22/22 Range/Units 11:30 07:38 05:33 WBC (4.8-10.8) x10^3/uL RBC (4.20-5.40) 10^6/uL Hgb (12.0-16.0) g/dL Hct (37.0-47.0) % MCV (81.0-99.0) fL MCH (27.0-31.0) pg MCHC (32.0-36.0) g/dL RDW (12.0-15.0) % Plt Count (130-450) 10^3/uL MPV (7.9-10.8) fL Neut # (Auto) (1.5-6.6) 10^3/uL Lymph # (Auto) (1.5-3.5) 10^3/uL [place] # (Auto) (0.0-1.0) 10^3/uL Eos # (Auto) (0.0-0.7) 10^3/uL Baso # (Auto) (0.0-0.1) 10^3/uL Absolute Nucleated RBC x10^3/uL Nucleated RBC % /100WBC Sodium 142 (135-145) mmol/L Potassium 4.3 (3.5-5.0) mmol/L Chloride 92 L (101-111) mmol/L Carbon Dioxide 38 H (21-32) mmol/L Anion Gap 12.0 (6-13) BUN 20 (6-20) mg/dL Creatinine 0.7 (0.4-1.0) mg/dL Estimated GFR (MDRD) 82 L (>89) Glucose 160 H (70-100) mg/dL POC Whole Bld Glucose 180 H 132 H (70 - 100) mg/dL Calcium 8.6 (8.5-10.3) mg/dL 11/22/22 11/21/22 11/21/22 Range/Units 05:33 20:54 16:34 WBC 15.7 H (4.8-10.8) x10^3/uL RBC 3.69 L (4.20-5.40) 10^6/uL Hgb 11.0 L (12.0-16.0) g/dL Hct 35.9 L (37.0-47.0) % MCV 97.3 (81.0-99.0) fL MCH 29.8 (27.0-31.0) pg MCHC 30.6 L (32.0-36.0) g/dL RDW 17.1 H (12.0-15.0) % Plt Count 130 (130-450) 10^3/uL MPV 12.0 H (7.9-10.8) fL Neut # (Auto) 12.4 H (1.5-6.6) 10^3/uL Lymph # (Auto) 1.6 (1.5-3.5) 10^3/uL [place] # (Auto) 1.3 H (0.0-1.0) 10^3/uL Eos # (Auto) 0.0 (0.0-0.7) 10^3/uL Baso # (Auto) 0.0 (0.0-0.1) 10^3/uL Absolute Nucleated RBC 0.05 x10^3/uL Nucleated RBC % 0.3 /100WBC Sodium (135-145) mmol/L Potassium (3.5-5.0) mmol/L Chloride (101-111) mmol/L Carbon Dioxide (21-32) mmol/L Anion Gap (6-13) BUN (6-20) mg/dL Creatinine (0.4-1.0) mg/dL Estimated GFR (MDRD) (>89) Glucose (70-100) mg/dL POC Whole Bld Glucose 173 H 194 H (70 - 100) mg/dL Calcium (8.5-10.3) mg/dL Impression and Recommendations - Palliative Care Impression: This is a 72-year-old woman who presents unexpectedly with cancer of unknown origin with metastatic disease to the liver, Suspicious for pancreatic cancer, particularly in the setting of her mother had pancreatic. Patient remains quite weak, has anorexia, does have pain that is worsening particular right upper quadrant.Palliative care seeing patient for goals of care conversation, patient will be transitioning to hospice. Recommendations/Counseling Done: 1. Reviewed with care my pain of neoplastic origin. Patient had been on methadone 5 mg twice daily for chronic pain. This was not effective for her malignant pain, she has responded well to time-released morphine 30 mg twice daily, using immediate release 7.5 mg for breakthrough pain. Would recommend continuing current regimen and titrate accordingly. 2. Cancer of unknown origin with metastatic disease, most likely liver mets. Patient most likely with pancreatic cancer, after much discussion as far as goals of care, patient would not make any different choices with biopsy, though they were going to be able to accommodate her tomorrow. Patient and family in support of transitioning to comfort focused care, hospice referral made and facilitated. 3, Goals of care. Multiple family meetings, as well as coordination of care with hospitalist, [facility], and hospice team. Patient to transition to hospice, patient is quite anxious to get home, her priority is spending time with family, focus on comfort, and allowing natural . Family is supportive these goals, counseling provided along the continuum of care, patient with need of hospital bed and commode. Pending hospice transition, patient will need ambulance transfer. Patient does have a POLST with DN AR/DNI and selective treatments. 85 Minutes, review of chart, labs, family meeting multiple times, coordination of care with hospitalist and hospice team, counseling with patient and family for continuum of care and goals of care.
[2022-11-22] MEDS: tiZANidine 4 MG TABLET PO SCH (20:37)
[2022-11-23] MEDS: SODIUM CHLORIDE FLUSH 0.9% 10 ML SYRINGE IVP SCH ×2 (00:40→09:02)
[2022-11-23] MEDS: LEVOTHYROXINE 75 MCG TABLET PO SCH (05:05)
[2022-11-23] MEDS: MORPHINE IR 15 MG TABLET PO PRN ×2 (05:05→13:12)
[2022-11-23 08:44] VITALS: BP 153/72
[2022-11-23] MEDS: MIDODRINE 2.5 MG TABLET PO SCH ×2 (08:59→13:12)
[2022-11-23] MEDS: FAMOTIDINE 20 MG TABLET PO SCH (08:59)
[2022-11-23] MEDS: MULTIVITAMIN W/MINERALS TABLET PO SCH (08:59)
[2022-11-23] MEDS: CHOLECALCIFEROL 25 MCG TABLET PO SCH (08:59)
[2022-11-23] MEDS: DOCUSATE SODIUM 250 MG CAPSULE PO SCH (09:00)
[2022-11-23] MEDS: MORPHINE SULFATE ER 30 MG TABLET PO SCH (09:00)
[2022-11-23] MEDS: dexAMETHasone 4 MG TABLET PO SCH (09:00)
[2022-11-23] MEDS: PREGABALIN 100 MG CAPSULE PO SCH (09:00)
[2022-11-23] MEDS: polyethylene glycoL 3350 17 GM PACKET PO SCH (09:01)
[2022-11-23] MEDS: CALCIUM CITRATE 250 MG TABLET PO SCH (09:01)
[2022-11-23] MEDS: INSULIN LISPRO 300 UNIT/3 ML PEN SUBQ SCH ×2 (09:01→12:42)
[2022-11-23] MEDS: NYSTATIN POWDER 15 GM TOP SCH (09:06)
[2022-11-23] MEDS ORDERED: WARFARIN 5 MG TABLET PO SCH ×2 (11:00→11:05)
--- NOTE | 2022-11-23 14:11 | Discharge Plan ---
Discharge Plan Problem Reviewed?: Yes Disposition: 50 Hospice/Home DC/Xfer Condition: Serious Prescriptions: Morphine Ir [Ms Ir] 7.5 mg PO Q6HR PRN #15 tab PRN Reason: BREAKTHROUGH Pain (Level 1-10) dexAMETHasone [Decadron] 2 mg PO BID #10 tab Morphine Sulfate ER [Ms Contin] 30 mg PO BID #30 tab Nystatin [Nystop] 1 applic TOP BID #1 each ONDANSETRON ODT Prepack 2 [ZOFRAN ODT Prepack 2] 4 mg TL Q6H #10 tablet Diet: Regular Activity Restrictions: Activity as Tolerated Shower Restrictions: No Driving Restrictions: Yes Assistance Devices: [facility] Concerns: You were hospitalized to manage weakness and abdominal pain, caused by a new finding of multiple liver masses. You had an elevated INR from Coumadin use, which was corrected. The plan was to get a biopsy of one of the liver masses to determine what the cancer primary is. Just yesterday you decided not to have the biopsy and requested to not have treatment of any cancer and to go home under Hospice care. You are being discharged home today. You may resume your previously prescribed medications if you like. New prescriptions were ordered for pain control, anxiety and other symptoms. All new prescriptions were sent to your [facility] pharmacy in [place]. If you have questions with your medical care going forward, [facility], who is now responsible for your care; it is not your previous Primary Care Provider. Plan of Treatment: As above. Care Goals: Comfort and dying with dignity are the goals. Assessment: The patient understands and is agreeable with the plan. Follow-Up Care: Hospice No Smoking: If you smoke, Please STOP! Call for help. Follow-up with: Nel Ryan MD [Provider Admit Priv/Credential] -
--- NOTE | 2022-11-23 14:23 | DISCHARGE SUMMARY ---
Discharge Summary Admit Date: 11/13/22 Discharge Date: 11/23/22 Discharging Provider: Dr Paty Ramirez Primary Care Provider: TUSHAR Griffin Code Status: Do Not Attempt Resuscitation Condition at Discharge: Serious Discharge Disposition: 50 Hospice/Home DC/Xfer - HPI History of Present Illness: This is a 71-year-old female with history of strokes, septal defect on lifelong warfarin, ALINA on CPAP, type 2 diabetes who presented to the ED for the evaluat ion of abdominal pain and altered mental status. She was brought in by a private vehicle accompanied by her . He provided all the history because pt is fairly encephalopathic when she presented to the ED. He states that about 4 to 5 days ago she started to complain of diarrhea and abdominal pain. Had a fever at the beginning but not in the last couple of days. 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 In the ED, pt was found to have RAFAEL, INR above 10, transaminitis, CT abd/pelvis showed possible mets to liver vs hepatocellular malignancy vs cirrhosis, CT head showed no acute process, UA/CXR negative for infection. For AMS, RAFAEL, liver masses and elevated INR, Hospitalist was asked to admit the pt for further management. - HOSPITAL COURSE Hospital Course: (1) Liver masses Her CT scan then the ultrasound done showed "innumerable" masses in the liver. There was one particularly large mass measuring 6.2 cm in the right posterior lobe. The ED provider was the first to tell the patient and that she probably has cancer. We had planned to get tissue sample with a liver biopsy for determing pathology. Interventional Radiology needed the INR to be corrected first. She got FFP and vitamin K doses. Then we spoke to Oncology in the [facility] on 11/15. If they get a tissue diagnosis, there were therapies that would allow her a decent quality of life and extended her life a few years. The pt and family at first felt it was worth getting a liver biopsy and getting a tissue diagnosis. We also spoke to the patient about CODE STATUS. While she was willing to get a biopsy, and get treatment, she did not want full resuscitative measures with CPR and intubation. So CODE STATUS was changed to DO NOT RESUSCITATE. We were anticipating the liver biopsy by IR for several days, but the DI sedation RN felt the pt needed Anesthesia, due to ASA class of 3 or more. Anesth esia does not put IR cases on their schedule. So this needed to be coordinated and determined if she needed to have the biopsy done at a different facility. Palliative care consult was requested and Priscilla Panda NP saw her. At this point the patient decided that she did not want to go through with the liver biopsy because of the risk of liver laceration. The patient decided to not have any biopsy, any treatment, but to go home with Hospice care and this was done. (2) RUQ abdominal pain The presumption was metastatic liver disease with unknown primary. There is no dularity along the capsule as well as the parenchyma. Gallbladder is unremarkable. No hydronephrosis. Abdominal ultrasound also shows innumerable hypoechoic mass lesions. 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 The intrahepatic ducts appear nondilated. There is dilation of the extrahepatic duct with the common bile duct 1 cm. IV narcotic pushes were started but pt needed a REVENUE CYCLE ADMINISTRATOR pump. Patient was discharged home with hospice care, narcotics for pain were ordered (3) Transaminitis The patient gets yearly blood tests, which were done in April 2022 and the LFTs were normal then. Her total bili was 1.7 on admission. AST was 206 on admission and decreased to 66. ALT was 74 on admission and decreased to 45. Alk phos was 311>>220. (4) DM II The patient took metformin. The admitted she does not really follow a diabetic diet. Our treatment consisted of fingerstick checks and sliding scale insulin coverage, and a low glu diet. A1c was 7.1%. Comfort food was allowed at the time of discharge (5) Chronic pain There is a history of previously needing to be on oxycodone at very high doses which was then transitioned to methadone. Her chronic pain was in her neck and lower back. (6) Hypothyroidism Her TSH was elevated but free T4 was normal. We continued her home thyroid replacement dose (7) ALINA Her home CPAP machine was brought here. (8) Hx of CVA Patient has had 3 strokes, 2002, 2012 and 2013. The chart indicates she has an "intracardiac shunt" but does not say if atrial or ventricular. She has chronic weakness on one side. She uses walker. She has been on chronic warfarin since those strokes. She came in with an INR of 10, probably due to taking her meds w hile liver abnormalities are present. At the time of discharge her INR was normal. She was given the option to resume her Coumadin or not (9) Hypotension She was transferred to the ICU November 15 for her hypotension. She did not appear to have signs and symptoms of sepsis or a GI bleed. Treatment consisted of Levophed to keep mean arterial pressure at 65. CT abd/pelvis imaging was repeated. Since infection could not be completely ruled out, we started her on broad-spectrum antibiotics with cefepime, vancomycin, and Flagyl. A blood cultures turned pos but was a contaminant. By 11/18, she was off of IV Levophed and moved out of the ICU. (10) Supratherapeutic INR She was admitted with an INR of greater than 10. She was taking her Coumadin in spite of not having any p.o. intake for 4 days, and her liver was being replaced by cancer. It took several days for the INR level to come below 1.5, with our treatments, in order to have a liver biopsy. But at that point she decided not to undergo the liver biopsy. She was discharged with the option of going back on Coumadin or not resuming it. (11) Altered mental status resolved She was obtunded at admission then remained fatigued and very weak, but was oriented to person place and time. Most likely her altered mental status was from the dehydration and the pain of liver mets. She was mostly in bed while here and lost a lot of ground. At discharge, we ordered home health OT PT nurse and bath aide (12) Acute kidney injury BUN/creatinine on admission were 41/2.3. She normally runs a creatinine of 0.8. With her history of 4 days of poor oral intake, she was very dehydrated and this caused her RAFAEL. Her lisinopril was stopped, and BUN/creat eventually normalized to 13/0.7 - ALLERGIES Allergies/Adverse Reactions: Allergies Allergy/AdvReac Type Severity Reaction Status Date / Time No Known Drug Allergies Allergy Verified 04/25/22 14:56 - MEDICATIONS Home Medications: Ambulatory Orders Medication Instructions Recorded Confirmed Atorvastatin Calcium 40 mg PO DAILY 08/21/20 11/14/22 Furosemide [Lasix] 20 mg PO DAILY 08/21/20 11/14/22 Levothyroxine Sodium 150 mcg PO DAILY 08/21/20 11/14/22 [Levothyroxine] Methadone [Methadone Hcl] 5 mg PO BID 08/21/20 11/14/22 Pregabalin [Lyrica] 150 mg PO BID 08/21/20 11/14/22 Warfarin [Coumadin] 5 mg PO DAILY 08/21/20 11/14/22 amLODIPine [Norvasc] 5 mg PO DAILY 08/21/20 11/14/22 tiZANidine [Zanaflex] 8 mg PO QPM 08/21/20 11/14/22 Metformin HCl [Metformin ER 500 mg PO BID 06/01/21 11/14/22 Osmotic] Aspirin [Aspirin EC] 1 tab PO DAILY PRN 11/14/22 11/14/22 Calcium Citrate/Vitamin D3 2 tab PO DAILY 11/14/22 11/14/22 [Calcium Cit 315-Vit D3 250 Cpt] Cholecalciferol [Vitamin D3] 1 tab PO DAILY 11/14/22 11/14/22 Famotidine [Pepcid] 1 tab PO HS PRN 11/14/22 11/14/22 Lisinopril [Zestril] 1 tab PO DAILY 11/14/22 11/14/22 Pregabalin 1 cap PO BID 11/14/22 11/14/22 Morphine Ir [Ms Ir] 7.5 mg PO Q6HR PRN #15 tab 11/23/22 Morphine Sulfate ER [Ms Contin] 30 mg PO BID #30 tab 11/23/22 Nystatin [Nystop] 1 applic TOP BID #1 each 11/23/22 ONDANSETRON ODT Prepack 2 [ZOFRAN 4 mg TL Q6H #10 tablet 11/23/22 ODT Prepack 2] dexAMETHasone [Decadron] 2 mg PO BID #10 tab 11/23/22 - PHYSICAL EXAM AT DISCHARGE General Appearance: positive: Moderate distress (Lethargic and weak, in some pain from the abdomen) Eyes Bilateral: positive: No lid inflammation, Other (Appears tired) ENT: positive: No signs of dehydration Neck: positive: Nml inspection Respiratory: positive: No respiratory distress Cardiovascular: positive: Regular rate & rhythm Abdomen: positive: Other (Mildly distended, cannot rule out a fluid wave, mildly tender) Skin: positive: Warm, Dry Neurologic/Psychiatric: positive: Oriented x3 (Extremely weak) - LABS Result Diagrams: 11/22/22 05:33 11/22/22 05:33 - DIAGNOSTIC IMAGING Diagnostic Imaging Results: Final report reviewed - FOLLOW UP Follow Up: The patient was sent home with plan for comfort care and dying with dignity, under the care of the Hospice team and Dr. Ryan. - TIME SPENT Time Spent in Discharge (Minutes): 45
== END 2022-11-23 16:45 | disposition hospice, home (50) | DRG 436 ==
LOC: ED 17:51 → MS2 20:12 → ICU 11-15 09:01 → MS2 11-19 11:25
PROVIDERS: ADMIT Hospitalist; ATTEND Internal Medicine
DX: R10.9 Unspecified abdominal pain (principal); R41.82 Altered mental status, unspecified; C78.7 Secondary malignant neoplasm of liver and intrahepatic bile duct; E86.0 Dehydration; R09.02 Hypoxemia; R53.1 Weakness; E11.42 Type 2 diabetes mellitus with diabetic polyneuropathy; G93.40 Encephalopathy, unspecified; I45.10 Unspecified right bundle-branch block; R16.0 Hepatomegaly, not elsewhere classified; N17.9 Acute kidney failure, unspecified; Z87.891 Personal history of nicotine dependence; Z20.822 Contact with and (suspected) exposure to COVID-19; I69.351 Hemiplegia and hemiparesis following cerebral infarction affecting right dominant side; G47.33 Obstructive sleep apnea (adult) (pediatric); E11.9 Type 2 diabetes mellitus without complications; R74.01 Elevation of levels of liver transaminase levels; R79.1 Abnormal coagulation profile; C80.1 Malignant (primary) neoplasm, unspecified; G89.29 Other chronic pain; E03.9 Hypothyroidism, unspecified; I10 Essential (primary) hypertension; I95.1 Orthostatic hypotension; Z66 Do not resuscitate; Z79.01 Long term (current) use of anticoagulants; Z79.84 Long term (current) use of oral hypoglycemic drugs; Z79.890 Hormone replacement therapy; Z79.899 Other long term (current) drug therapy
CPT/HCPCS: 36415; 36556; 51702; 70450; 71045; 71260; 74170; 74176; 74177; 76705; 80048; 80053; 80306; 81001; 82105; 82140; 82330; 82378; 82803; 83036; 83605; 83735; 83880; 84100; 84132; 84439; 84443; 84484; 85025; 85610; 86300; 86301; 86304; 86900; 86901; 87040; 87077; 87150; 87181; 87633; 93005; 96361; 96374; 97112; 97116; 97163; 97167; 97530; 97535; 99285; 99291; A6250; A9270; G0480; J3370; J8540; P9017; Q9967; 80320; 87086

== ENCOUNTER 2022-11-23 17:44 | Outpatient (CLI) | payer MEDICARE | END 2022-11-23 23:59 | disposition hospice, home (50) | LOC: EMS 17:44 | PROVIDERS: ATTEND Internal Medicine | DX: Z51.5 Encounter for palliative care (principal); Z74.01 Bed confinement status; R53.1 Weakness; R41.82 Altered mental status, unspecified; C80.1 Malignant (primary) neoplasm, unspecified | CPT/HCPCS: A0425; A0428 ==